=== PATIENT | female | born 1980 | race Caucasian/White ===

== ENCOUNTER 2018-01-03 16:13 | Emergency (ER) | payer SELFPAY ==
[2018-01-03 16:48] LABS: Urine Blood 1+ (NEG); Urine Glucose NEGATIVE (NEG); Urine Protein NEGATIVE (NEG); Urine Specific Gravity 1.025 (1.005-1.030); Urine pH 6.5 (5.0-7.0)
[2018-01-03 17:02] LABS: Urine Bacteria LOADED /HPF (<20); Urine Culture Reflex Order REFLEXED; Urine RBC <5 /HPF (NONE SEEN)
[2018-01-03] MEDS ORDERED: SMZ./TMP. 800/160 MG TABLET ONE (17:19)
--- NOTE | 2018-01-03 17:43 | ER ---
Nurse's Notes [facility] Name: Laura Smith Age: 37 yrs Sex: Female : 1980 Arrival Date: 01/03/2018 Time: 16:20 Bed 23 Private MD: None, None Diagnosis: Urinary tract infection, site not specified;Abdominal and pelvic pain Presentation: 01/03 16:26 Presenting complaint: Patient states: 1.5 weeks of painful intercourse and brown clumpy la1 discharge. Pt states LMP 11/03/2017, unsure if . Transition of care: patient was not received from another setting of care. Onset of symptoms was January 03, 2018. Initial Sepsis Screen: Does the patient meet any 2 criteria? No. Patient's initial sepsis screen is negative. Does the patient have a suspected source of infection? No. Patient's initial sepsis screen is negative. Care prior to arrival: None. 16:26 Method Of Arrival: Ambulatory la1 16:26 Acuity: DARIEL 3 la1 Triage Assessment: 18:07 : Reports discharge, brown. tl3 18:08 : Reports vaginal bleeding that is brown. 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 for tl3 Anxiety [Active]; - PMHx: 16:27 Anxiety; Asthma; Bipolar disorder; CHF; COPD; Pancreatitis; PTSD; Schizophrenia; Skull la1 Fracture Left Parietal Area; TIA; - Immunization history:: Adult Immunizations up to date. - Social history:: Smoking status: Patient uses tobacco products, smokes one pack cigarettes per day. Screenin:45 Abuse screen: Denies threats or abuse. Nutritional screening: No deficits noted. tl3 Tuberculosis screening: No symptoms or risk factors identified. Fall Risk None identified. Assessment: 16:45 General: Appears in no apparent distress. comfortable, well groomed, well developed, tl3 well nourished, Behavior is calm, cooperative, appropriate for age. Pain: Complains of pain in suprapubic area. Neuro: Level of Consciousness is awake, alert, obeys commands, Oriented to person, place, time, situation, Appropriate for age. Cardiovascular: Heart tones S1 S2 present Patient's skin is warm and dry. Respiratory: Airway is patent Trachea midline Respiratory effort is even, unlabored, Respiratory pattern is regular, symmetrical, Breath sounds are clear bilaterally. GI: No signs and/or symptoms were reported involving the gastrointestinal system. : Urine is clear, Reports discharge, vaginal pain with intercourse. EENT: No signs and/or symptoms were reported regarding the EENT system. Derm: No signs and/or symptoms reported regarding the dermatologic system. Musculoskeletal: No signs and/or symptoms reported regarding the musculoskeletal system. 17:30 Reassessment: Patient appears in no apparent distress at this time. No changes from tl3 previously documented assessment. Patient and/or family updated on plan of care and expected duration. Pain level reassessed. Patient is alert, oriented x 3, equal unlabored respirations, skin warm/dry/pink. Vital Signs: 16:27 BP 112 / 84; Pulse 101; Resp 19; Temp 98.6; Pulse Ox 100% on R/A; Weight 63.5 kg; la1 Height 5 ft. 1 in. (154.94 cm); 16:45 BP 125 / 84; Pulse 83; Resp 18; Pulse Ox 100% on R/A; tl3 18:09 BP 115 / 74; Pulse 83; Resp 16; Pulse Ox 99% ; tl3 16:27 Body Mass Index 26.45 (63.50 kg, 154.94 cm) la1 ED Course: 16:20 Patient arrived in ED. mr 16:21 None, None is Private Physician. mr 16:26 Triage completed. la1 16:27 Arm band placed on left wrist. la1 16:30 Alla Cisneros FNP-C is PHCP. kb 16:30 Caleb Wright MD is Attending Physician. kb 16:35 Ce Tse RN is Primary Nurse. tl3 16:45 Patient has correct armband on for positive identification. tl3 16:45 No provider procedures requiring assistance completed. Patient did not have IV access tl3 during this emergency room visit. 17:13 Ultrasound completed. Patient tolerated well. ap2 17:42 US Transvaginal Study (Probe) In Process Unspecified. EDMS Administered Medications: 17:32 Drug: Bactrim (160 mg-800 mg (DS) 1 tablet Route: PO; tl3 18:03 Follow up: Response: No adverse reaction tl3 18:03 Drug: Doxycycline 100 mg Route: PO; tl3 18:04 Follow up: Response: Medication administered at discharge. tl3 Outcome: 17:42 Discharge ordered by . cuong 18:06 Discharged to home ambulatory. tl3 18:06 Condition: good 18:06 Discharge instructions given to patient, Instructed on discharge instructions, follow up and referral plans. medication usage, Demonstrated understanding of instructions, follow-up care, medications, Prescriptions given X 2. 18:09 Patient left the ED. tl3 Addendum: 01/06/2018 07:16 Addendum: Culture Results: Positive urine culture. No further action required. Bacteria i w sensitive to prescribed antibiotic. Signatures: Dispatcher [employer] EDMS Alla Cisneros, RUBBER CURER-C RUBBER CURER-CkMarian Barrientos Irene, RN TRACY iw Lamine Marley RN RN la1 Vianey Yeboah Tammy, TRACY RN tl3
--- NOTE | 2018-01-03 17:43 | EDPHYS ---
Physician Documentation [facility] Name: Laura Betancourt Smith Age: 37 yrs Sex: Female : 1980 Arrival Date: 01/03/2018 Time: 16:20 Bed 23 Private MD: None, None ED Physician Caleb Wright HPI: 01/03 16:54 This 37 yrs old Female presents to ER via Ambulatory with complaints of kb Vaginal Bleeding, Unknown wks . 17:01 The patient presents with pelvic pain, that is located in/on the suprapubic area, with kb associated dyspareunia, vaginal discharge, that is malodorous brown discharge. Onset: The symptoms/episode began/occurred 2 week(s) ago. Modifying factors: The symptoms are alleviated by nothing, the symptoms are aggravated by sexual intercourse. Associated signs and symptoms: Pertinent positives: dyspareunia, vaginal discharge, Pertinent negatives: constipation, cramping, diarrhea, dysuria, fever, hematuria, nausea, urinary frequency, vaginal bleeding, vomiting. Severity of symptoms: At their worst the symptoms were moderate, in the emergency department the symptoms are unchanged. The patient is sexually active. The patient has not experienced similar symptoms in the past. The patient has not recently seen a physician. 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 for tl3 Anxiety [Active]; - PMHx: 16:27 Anxiety; Asthma; Bipolar disorder; CHF; COPD; Pancreatitis; PTSD; Schizophrenia; Skull la1 Fracture Left Parietal Area; TIA; - Immunization history:: Adult Immunizations up to date. - Social history:: Smoking status: Patient uses tobacco products, smokes one pack cigarettes per day. ROS: 16:55 Constitutional: Negative for fever, chills, and weight loss, Cardiovascular: Negative kb for chest pain, palpitations, and edema, Respiratory: Negative for shortness of breath, cough, wheezing, and pleuritic chest pain, Abdomen/GI: Negative for abdominal pain, nausea, vomiting, diarrhea, and constipation, Back: Negative for injury and pain, MS/Extremity: Negative for injury and deformity, Skin: Negative for injury, rash, and discoloration, Neuro: Negative for headache, weakness, numbness, tingling, and seizure. 16:55 : Positive for pelvic pain, vaginal discharge, missed period. Exam: 16:56 Constitutional: This is a well developed, well nourished patient who is awake, alert, kb and in no acute distress. Head/Face: Normocephalic, atraumatic. Chest/axilla: Normal chest wall appearance and motion. Nontender with no deformity. No lesions are appreciated. Cardiovascular: Regular rate and rhythm with a normal S1 and S2. No gallops, murmurs, or rubs. Normal PMI, no JVD. No pulse deficits. Respiratory: Lungs have equal breath sounds bilaterally, clear to auscultation and percussion. No rales, rhonchi or wheezes noted. No increased work of breathing, no retractions or nasal flaring. Back: No spinal tenderness. No costovertebral tenderness. Full range of motion. Skin: Warm, dry with normal turgor. Normal color with no rashes, no lesions, and no evidence of cellulitis. MS/ Extremity: Pulses equal, no cyanosis. Neurovascular intact. Full, normal range of motion. Neuro: Awake and alert, GCS 15, oriented to person, place, time, and situation. Cranial nerves II-XII grossly intact. Motor strength 5/5 in all extremities. Sensory grossly intact. Cerebellar exam normal. Normal gait. 16:56 Abdomen/GI: Inspection: abdomen appears normal, Bowel sounds: normal, in all quadrants, Palpation: soft, in all quadrants, moderate abdominal tenderness, in the suprapubic area. Vital Signs: 16:27 BP 112 / 84; Pulse 101; Resp 19; Temp 98.6; Pulse Ox 100% on R/A; Weight 63.5 kg; la1 Height 5 ft. 1 in. (154.94 cm); 16:45 BP 125 / 84; Pulse 83; Resp 18; Pulse Ox 100% on R/A; tl3 18:09 BP 115 / 74; Pulse 83; Resp 16; Pulse Ox 99% ; tl3 16:27 Body Mass Index 26.45 (63.50 kg, 154.94 cm) la1 MDM: 16:30 Patient medically screened. kb 16:56 Data reviewed: vital signs, nurses notes. Data interpreted: Pulse oximetry: on room air kb is 100 %. Interpretation: normal. 17:06 ED course: Pt took a week course of Macrobid 2 weeks ago for UTI. Will prescribe kb Bactrim DS and urine culture to test for sensitivity. 17:42 Counseling: I had a detailed discussion with the patient and/or guardian regarding: the kb historical points, exam findings, and any diagnostic results supporting the discharge/admit diagnosis, lab results, radiology results, the need for outpatient follow up, an OB/Gyne specialist, to return to the emergency department if symptoms worsen or persist or if there are any questions or concerns that arise at home. 01/03 16:41 Order name: Urine Microscopic Only; Complete Time: 17:03 kb 01/03 16:44 Order name: Urine Dipstick--Ancillary (enter results); Complete Time: 16:51 ag 01/03 16:41 Order name: US Transvaginal Study (Probe); Complete Time: 05:55 kb 01/03 16:44 Order name: Urine --Ancillary (enter results); Complete Time: 16:51 ag 01/03 17:03 Order name: Urine Culture EDMS 01/03 16:31 Order name: Urine Dipstick-Ancillary (obtain specimen); Complete Time: 17:17 kb 01/03 16:31 Order name: Urine Test (obtain specimen); Complete Time: 17:17 kb Administered Medications: 17:32 Drug: Bactrim (160 mg-800 mg (DS) 1 tablet Route: PO; tl3 18:03 Follow up: Response: No adverse reaction tl3 18:03 Drug: Doxycycline 100 mg Route: PO; tl3 18:04 Follow up: Response: Medication administered at discharge. tl3 Disposition: 01/03/18 17:42 Discharged to Home. Impression: Urinary tract infection, site not specified, Abdominal and pelvic pain. - Condition is Stable. - Discharge Instructions: Urinary Tract Infection, [id number]. - Prescriptions for Doxycycline Hyclate 100 mg Oral Tablet - take 1 tablet by ORAL route every 12 hours; 20 tablet. Bactrim DS 800- 160 mg Oral Tablet - take 1 tablet by ORAL route every 12 hours for 7 days; 14 tablet. - Medication Reconciliation Form, Thank You Letter, Antibiotic Education, Prescription Opioid Use form. - Follow up: Emergency Department; When: As needed; Reason: Worsening of condition. Follow up: Private Physician; When: 2 - 3 days; Reason: Recheck today's complaints, Continuance of care, Re-evaluation by your physician. Addendum: 01/12/2018 05:55 Co-signature as Attending Physician, Caleb Wright MD I agree with the assessment and w a plan of care. Signatures: Dispatcher [employer] EDMS Alla Cisneros, [place]-C INSURANCE PROCESSING CLERK-Lamine Fontenot RN RN la1 Caleb Wright MD MD wa Lowrey, Tammy, RN RN tl3 Corrections: (The following items were deleted from the chart) 01/03 18:09 17:42 01/03/2018 17:42 Discharged to Home. Impression: Urinary tract infection, site tl3 not specified; Abdominal and pelvic pain. Condition is Stable. Forms are Medication Reconciliation Form, Thank You Letter, Antibiotic Education, Prescription Opioid Use. Follow up: Emergency Department; When: As needed; Reason: Worsening of condition. Follow up: Private Physician; When: 2 - 3 days; Reason: Recheck today's complaints, Continuance of care, Re-evaluation by your physician. kb
--- NOTE | 2018-01-03 17:59 | RAD REPORT ---
EXAM DESCRIPTION: US - Transvaginal Study Probe - 01/03/2018 5:42 pm CLINICAL HISTORY: Pelvic pain. COMPARISON: 11/01/2015 FINDINGS: The uterus is normal in size, shape and echotexture. The uterus measures 8.2 x 4.8 x 3.7 c m. The endometrial stripe measures 2 mm, normal. Several small subendometrial hyperechoic foci are prese nt probably representing subendometrial glands. The right ovary could not be well seen due to bowel gas. The left ovary is normal in size, shape and echotexture measuring 3.0 x 1.7 x 1.2 cm. Normal blood flow seen the left ovary. No pelvic ascites. IMPRESSION: No acute abnormalities detected.
[2018-01-03] MEDS ORDERED: DOXYCYCLINE 100 MG CAP PO ONE (18:01)
[2018-01-03 18:13] VITALS: TEMP 98.6
[2018-01-03 18:15] VITALS: BP 115/74; O2SAT 99
== END 2018-01-03 18:09 | disposition home or self-care (01) ==
LOC: ER 16:13
DX: N39.0 Urinary tract infection, site not specified (principal); F31.9 Bipolar disorder, unspecified; F20.9 Schizophrenia, unspecified; Z88.0 Allergy status to penicillin; Z88.6 Allergy status to analgesic agent; Z91.048 Other nonmedicinal substance allergy status
CPT/HCPCS: 76830; 81003; 81015; 81025; 87077; 87086; 87088; 87186; 99283

== ENCOUNTER 2018-06-25 15:54 | Emergency (ER) | payer SELFPAY ==
[2018-06-25] MEDS ORDERED: FENTANYL CITR 100 MCG/2 ML ONE (16:34)
[2018-06-25] MEDS ORDERED: MECLIZINE HCL 12.5 MG TAB ONE (16:35)
[2018-06-25] MEDS ORDERED: ONDANSETRON 4 MG/2 ML VIAL ONE ×2 (16:35→18:27)
--- NOTE | 2018-06-25 17:03 | RAD REPORT ---
EXAM DESCRIPTION: CT - Head Brain Wo Cont - 06/25/2018 4:41 pm CLINICAL HISTORY: Headache. Head injury status post fall COMPARISON: August 2016 TECHNIQUE: Computed axial tomography of the head was obtained. IV contrast was not requested. All CT scans are performed using dose optimization technique as appropriate and may include automated exposure control or mA/KV adjustment according to patient size. FINDINGS: Left craniotomy has been performed. An intracranial bleed is not seen . The ventricles are normal in caliber. No extra-axial fluid collection is noted. Fluid within the sinuses/ mastoids is not seen. IMPRESSION: No acute intracranial abnormality is seen. If patient's symptoms persist MRI of the bra in would be recommended.
[2018-06-25 17:46] LABS: Absolute Lymphocytes (CBC) 2.8 K/uL (0.7-4.9); Absolute Monocytes 0.7 K/uL (0.1-1.3); Absolute Neutrophil 3.1 K/uL (1.8-8.0); Basophils % 1.1 % (0-1.3); Eosinophils % 2.7 % (0-4.4); Lymphocytes % 40.2 % (15.3-44.8); MCH 30.5 pg (27.0-35.0); MCV 91.5 fL (80-100); MPV 7.9 fL (7.6-11.3); Monocytes % 10.7 % (3.3-12.3); RBC Red Blood Cell Count 4.48 M/uL (3.86-4.86)
[2018-06-25 18:02] LABS: ALT/SGPT 70 U/L (12-78); AST/SGOT 22 U/L (15-37); Albumin 3.7 g/dL (3.4-5.0); Alkaline Phosphatase 198 U/L (45-117); BUN Blood Urea Nitrogen 9 mg/dL (7-18); Bicarbonate 22 mmol/L (21-32); Bilirubin Direct < 0.1 mg/dL (0-0.2); Bilirubin Total 0.2 mg/dL (0.2-1.0); Glucose Level 88 mg/dL (74-106); Lipase 198 U/L (73-393); Potassium 3.2 mmol/L (3.5-5.1); Protein, Total 7.4 g/dL (6.4-8.2); Sodium Level 141 mmol/L (136-145)
[2018-06-25] MEDS ORDERED: NA CHLORIDE 0.9% 1,000 ML ONE (18:27)
[2018-06-25 19:16] LABS: Urine Blood NEGATIVE (NEG); Urine Glucose NEGATIVE (NEG); Urine Protein NEGATIVE (NEG); Urine Specific Gravity 1.015 (1.005-1.030)
--- NOTE | 2018-06-25 19:23 | RAD REPORT ---
EXAM DESCRIPTION: MRI - Brain Wo Cont - 06/25/2018 6:51 pm CLINICAL HISTORY: Head injury status post fall. Headache COMPARISON: June 25, [address] TECHNIQUE: Axial, sagittal, and coronal magnetic images of the brain were obtained. Contrast was not requested FINDINGS: Postsurgical changes of a left craniotomy are seen. No significant abnormal signal is present within the brain. Diffusion-weighted/ADC mapping does not reveal evidence of acute infarction. The ventricles are normal caliber. An extra-axial fluid collection is not present The sinuses and mastoids are clear. IMPRESSION: No acute abnormality displayed
[2018-06-25 19:30] LABS: Urine Bacteria LOADED /HPF (<20); Urine Culture Reflex Order REFLEXED; Urine RBC NONE SEEN /HPF (NONE SEEN)
--- NOTE | 2018-06-25 20:00 | EDPHYS ---
Physician Documentation [facility] Name: Laura Smith Age: 38 yrs Sex: Female : 1980 Arrival Date: 06/25/2018 Time: 15:57 Bed 28 Private MD: ED Physician Chilo Zaidi HPI: 06/25 16:52 This 38 yrs old Female presents to ER via EMS with complaints of n/v/d, Right jr8 sided weakness. 16:52 Patient stated that she has had n/v/d for two days feeling weak. Today has had headache jr8 and cannot move the right side of her body as well as she normally can. History of TBI from fall. Stated that she has some baseline deficit on right side but never this bad. Severity of symptoms: At their worst the symptoms were moderate in the emergency department the symptoms are unchanged. The patient has not experienced similar symptoms in the past. The patient has not recently seen a physician. Historical: - Allergies: 16:10 iodine (IV) (Anaphylaxis); mg2 16:10 PENICILLINS (Hives); mg2 16:10 Toradol (Hives); mg2 - Home Meds: 16:10 Depakote Oral [Active]; Xanax 2 mg Oral tab 1 tab Two times a day as needed. for mg2 Anxiety [Active]; - PMHx: 16:10 Anxiety; Asthma; Bipolar disorder; CHF; COPD; Pancreatitis; PTSD; Schizophrenia; Skull mg2 Fracture Left Parietal Area; TIA; - PSHx: 16:10 head surgery; mg2 - Immunization history:: Flu vaccine status is unknown. - Social history:: Smoking status: Patient uses tobacco products, smokes one pack cigarettes per day. Patient/guardian denies using alcohol, street drugs, IV drugs. - Ebola Screening: : No symptoms or risks identified at this time. ROS: 16:52 Eyes: Negative for injury, pain, redness, and discharge, ENT: Negative for injury, jr8 pain, and discharge, Neck: Negative for injury, pain, and swelling, Cardiovascular: Negative for chest pain, palpitations, and edema, Respiratory: Negative for shortness of breath, cough, wheezing, and pleuritic chest pain, Back: Negative for injury and pain, MS/Extremity: Negative for injury and deformity, Skin: Negative for injury, rash, and discoloration. 16:52 Abdomen/GI: Positive for abdominal pain, nausea, vomiting, and diarrhea, Negative for abdominal distension, anorexia, dysphagia, hematemesis, black/tarry stool, rectal pain, rectal bleeding, bowel incontinence, flatulence. 16:52 Neuro: Positive for dizziness, headache, weakness, Negative for altered mental status, seizure activity, speech changes, syncope. Exam: 17:51 Eyes: Pupils equal round and reactive to light, extra-ocular motions intact. Lids and jr8 lashes normal. Conjunctiva and sclera are non-icteric and not injected. Cornea within normal limits. Periorbital areas with no swelling, redness, or edema. ENT: Nares patent. No nasal discharge, no septal abnormalities noted. Tympanic membranes are normal and external auditory canals are clear. Oropharynx with no redness, swelling, or masses, exudates, or evidence of obstruction, uvula midline. Mucous membranes moist. Neck: Trachea midline, no thyromegaly or masses palpated, and no cervical lymphadenopathy. Supple, full range of motion without nuchal rigidity, or vertebral point tenderness. No Meningismus. Cardiovascular: Regular rate and rhythm with a normal S1 and S2. No gallops, murmurs, or rubs. Normal PMI, no JVD. No pulse deficits. Respiratory: Lungs have equal breath sounds bilaterally, clear to auscultation and percussion. No rales, rhonchi or wheezes noted. No increased work of breathing, no retractions or nasal flaring. Abdomen/GI: Soft, non-tender, with normal bowel sounds. No distension or tympany. No guarding or rebound. No evidence of tenderness throughout. Back: No spinal tenderness. No costovertebral tenderness. Full range of motion. Skin: Warm, dry with normal turgor. Normal color with no rashes, no lesions, and no evidence of cellulitis. MS/ Extremity: Pulses equal, no cyanosis. Neurovascular intact. Full, normal range of motion. 17:51 Head/face: left sided craniotomy scars present . 17:51 Neuro: Orientation: to person, place, time \T\ situation. Mentation: is normal, Memory: is normal, Cranial nerves: CN I not tested, CN II- XII are normal as tested, visual agustin are intact. extraocular movements are intact, Facial palsy and sensory deficits are absent. Speech is slurred, baseline for patient . Tongue strength is normal, Cerebellar function: dysmetria is noted on the right, Motor: moves all fours, strength is 5/5 in the left arm and left leg, Strength is 3/5 in the right arm and right leg, Sensation: no obvious gross deficits, Gait: not tested. seizure activity, is not displayed by the patient, Abnormal movements: there are no abnormal movements. Vital Signs: 16:11 BP 110 / 69; Pulse 80; Resp 18; Temp 98.3; Pulse Ox 100% on R/A; Weight 54.43 kg; mg2 Height 5 ft. 1 in. (154.94 cm); Pain 7/10; 17:19 BP 119 / 74; Pulse 60; Resp 18; Pulse Ox 97% on R/A; mg2 20:14 BP 120 / 75; Pulse 77; Resp 18; Pulse Ox 100% on R/A; Pain 0/10; mg2 16:11 Body Mass Index 22.67 (54.43 kg, 154.94 cm) mg2 NIH Stroke Scale Scores: 17:51 NIHSS Score: 4 jr8 MDM: 16:00 Patient medically screened. jr8 19:58 Data reviewed: vital signs, nurses notes, lab test result(s), radiologic studies, CT jr8 scan, MRI. Data interpreted: Pulse oximetry: on room air is 97 %. Interpretation: normal. Counseling: I had a detailed discussion with the patient and/or guardian regarding: the historical points, exam findings, and any diagnostic results supporting the discharge/admit diagnosis, lab results, radiology results, the need for outpatient follow up, a family practitioner, a neurologist, to return to the emergency department if symptoms worsen or persist or if there are any questions or concerns that arise at home. Response to treatment: the patient's symptoms have markedly improved after treatment. 06/25 16:21 Order name: Basic Metabolic Panel; Complete Time: 18:06 8 06/25 16:21 Order name: CBC with Diff; Complete Time: 17:54 jr8 06/25 16:21 Order name: Creatinine for Radiology; Complete Time: 18:06 8 06/25 16:21 Order name: Hepatic Function; Complete Time: 18:06 jr8 06/25 16:21 Order name: Lipase; Complete Time: 18:06 8 06/25 16:21 Order name: Urine Microscopic Only; Complete Time: 20:00 jr8 06/25 16:21 Order name: CT Head Brain wo Cont; Complete Time: 17:03 jr8 06/25 16:23 Order name: Depakote; Complete Time: 18:06 jr8 06/25 17:32 Order name: MRI - Brain Wo Cont; Complete Time: 19:25 jr8 06/25 19:09 Order name: Urine Dipstick--Ancillary (enter results); Complete Time: 19:25 ms 06/25 19:09 Order name: Urine --Ancillary (enter results); Complete Time: 19:25 ms 06/25 19:30 Order name: Urine Culture EDMS 06/25 16:21 Order name: IV Saline Lock; Complete Time: 17:40 8 06/25 16:21 Order name: Labs collected and sent; Complete Time: 17:40 8 06/25 16:21 Order name: Urine Test (obtain specimen); Complete Time: 19:18 jr8 06/25 16:21 Order name: Urine Dipstick-Ancillary (obtain specimen); Complete Time: 19:19 jr8 Administered Medications: 17:15 Drug: Meclizine 25 mg Route: PO; mg2 18:33 Follow up: Response: No adverse reaction; Marked relief of symptoms mg2 17:39 Drug: Zofran 4 mg Route: IVP; Site: left jugular; mg2 18:28 Follow up: Response: No adverse reaction; Pain is unchanged, physician notified mg2 17:39 Drug: fentaNYL (PF) 25 mcg Route: IVP; Site: left jugular; mg2 18:33 Follow up: Response: No adverse reaction mg2 18:27 Drug: NS 0.9% 1000 ml Route: IV; Rate: 1000 ml; Site: left jugular; mg2 20:13 Follow up: Response: No adverse reaction; Marked relief of symptoms; IV Status: mg2 Completed infusion 18:27 Drug: Zofran 4 mg Route: IVP; Site: left jugular; mg2 20:13 Follow up: Response: No adverse reaction; Marked relief of symptoms mg2 18:28 Drug: fentaNYL (PF) 50 mcg Route: IVP; Site: left jugular; mg2 20:13 Follow up: Response: No adverse reaction; Marked relief of symptoms mg2 20:12 Drug: Imodium A-D 4 mg Route: PO; mg2 20:13 Follow up: Response: No adverse reaction; Medication administered at discharge. mg2 20:12 Drug: [place] 10 mg-325 mg 1 tabs Route: PO; mg2 20:12 Follow up: Response: No adverse reaction; Medication administered at discharge. mg2 Disposition: 06/25/18 19:59 Discharged to Home. Impression: Diffuse traumatic brain injury, Gastroenteritis, Urinary tract infection, site not specified. - Condition is Stable. - Discharge Instructions: Traumatic Brain Injury, Urinary Tract Infection, Adult, Viral Gastroenteritis, Adult. - Prescriptions for Meclizine 25 mg Oral Tablet - take 1 tablet by ORAL route every 8 hours As needed; 30 tablet. Tylenol- Codeine #3 300-30 mg Oral Tablet - take 2 tablet by ORAL route every 6 hours As needed; 30 tablet. Macrobid 100 mg Oral Capsule - take 1 capsule by ORAL route every 12 hours for 7 days; 14 capsule. - Medication Reconciliation Form, Thank You Letter, Antibiotic Education, Prescription Opioid Use form. - Follow up: Private Physician; When: 2 - 3 days; Reason: Recheck today's complaints, Continuance of care, Re-evaluation by your physician. - Problem is new. - Symptoms have improved. NIH Stroke Scale - NIH Stroke Score Date: 06/25/2018 Time: 17:51 Total Score = 4 1a. Level of Consciousness (LOC) - 0(Alert) 1b. Level of Consciousness (LOC) (Year \T\ Age) - 0(Both) 1c. LOC Commands (Open \T\ Closes Eyes/High School Assistant Principal) - 0(Both) 2. Best Gaze (Lateral Gaze Paresis) - 0(Normal) 3. Visual Field Loss - 0(No visual loss) 4. Facial Palsy - 0(Normal) 5a. Left Arm: Motor (10-second hold) - 0(No drift) 5b. Right Arm: Motor (10-second hold) - 1(Drift) 6a. Left Leg: Motor (5-second hold - always test supine) - 0(No drift) 6b. Right Leg: Motor (5-second hold - always test supine) - 1(Drift) 7. Limb Ataxia (finger/nose \T\ heel/miller - test with eyes open) - 1(Present in one limb) 8. Sensory Loss (pinprick arms/legs/face) - 0(Normal) 9. Best Language: Aphasia (description/naming/reading) - 0(No aphasia) 10. Dysarthria (speech clarity - read or repeat words) - 1(Mild to Moderate) 11. Extinction and Inattention (visual/tactile/auditory/spatial/personal) - 0(No abnormality) Initials: jr8 Addendum: 06/28/2018 07:46 Co-signature as Attending Physician, Chilo Zaidi MD. rn Signatures: Dispatcher [employer] EDMN Chilo Zaidi MD MD rn Roszak, Josh, PA PA jr8 Srinivas Jamison RN RN mg2 Corrections: (The following items were deleted from the chart) 06/25 20:15 19:59 06/25/2018 19:59 Discharged to Home. Impression: Diffuse traumatic brain mg2 injury; Gastroenteritis; Urinary tract infection, site not specified. Condition is Stable. Forms are Medication Reconciliation Form, Thank You Letter, Antibiotic Education, Prescription Opioid Use. Follow up: Private Physician; When: 2 - 3 days; Reason: Recheck today's complaints, Continuance of care, Re-evaluation by your physician. Problem is new. Symptoms have improved. jr8
--- NOTE | 2018-06-25 20:00 | ER ---
Nurse's Notes [facility] Name: Laura Smith Age: 38 yrs Sex: Female : 1980 Arrival Date: 06/25/2018 Time: 15:57 Bed 28 Private MD: Diagnosis: Diffuse traumatic brain injury;Gastroenteritis;Urinary tract infection, site not specified Presentation: 06/25 16:04 Presenting complaint: EMS states: she fell this morning while walking towards the mg2 bathroom, sustained pain and weakness to the right side, vomiting, headache and nausea. she also reports having diarrhea since yesterday. she had a traumatic brain injury last May 03, 2018 and was surgically operated. she was in [facility] yesterday. Transition of care: patient was not received from another setting of care. Onset of symptoms was June 25, 2018. Risk Assessment: Do you want to hurt yourself or someone else? Patient reports no desire to harm self or others. Initial Sepsis Screen: Does the patient meet any 2 criteria? No. Patient's initial sepsis screen is negative. Does the patient have a suspected source of infection? No. Patient's initial sepsis screen is negative. Care prior to arrival: None. 16:04 Method Of Arrival: EMS mg2 16:04 Acuity: DARIEL 3 mg2 Historical: - Allergies: 16:10 iodine (IV) (Anaphylaxis); mg2 16:10 PENICILLINS (Hives); mg2 16:10 Toradol (Hives); mg2 - Home Meds: 16:10 Depakote Oral [Active]; Xanax 2 mg Oral tab 1 tab Two times a day as needed. for mg2 Anxiety [Active]; - PMHx: 16:10 Anxiety; Asthma; Bipolar disorder; CHF; COPD; Pancreatitis; PTSD; Schizophrenia; Skull mg2 Fracture Left Parietal Area; TIA; - PSHx: 16:10 head surgery; mg2 - Immunization history:: Flu vaccine status is unknown. - Social history:: Smoking status: Patient uses tobacco products, smokes one pack cigarettes per day. Patient/guardian denies using alcohol, street drugs, IV drugs. - Ebola Screening: : No symptoms or risks identified at this time. Screenin:14 Abuse screen: Denies threats or abuse. Denies injuries from another. Nutritional mg2 screening: No deficits noted. Tuberculosis screening: No symptoms or risk factors identified. Fall Risk Fall in past 12 months (25 points). Gait- Weak (10 pts.). Assessment: 16:19 General: Appears in no apparent distress. comfortable, Behavior is anxious. Pain: mg2 Complains of pain in head Pain does not radiate. Pain currently is 7 out of 10 on a pain scale. Quality of pain is described as aching, Pain began gradually, 6 hours ago. Neuro: Level of Consciousness is awake, alert, obeys commands, Oriented to person, place, situation, Reports headache. Cardiovascular: Capillary refill < 3 seconds Patient's skin is warm and dry. Respiratory: Airway is patent Respiratory effort is even, unlabored, Respiratory pattern is regular, symmetrical. GI: Reports nausea. : No signs and/or symptoms were reported regarding the genitourinary system. EENT: No signs and/or symptoms were reported regarding the EENT system. Derm: Skin is intact, is healthy with good turgor, Skin is pink, warm \T\ dry. normal. Musculoskeletal: Circulation, motion, and sensation intact. Capillary refill < 3 seconds. 16:38 Reassessment: patient sent to ct scan,. mg2 Vital Signs: 16:11 BP 110 / 69; Pulse 80; Resp 18; Temp 98.3; Pulse Ox 100% on R/A; Weight 54.43 kg; mg2 Height 5 ft. 1 in. (154.94 cm); Pain 7/10; 17:19 BP 119 / 74; Pulse 60; Resp 18; Pulse Ox 97% on R/A; mg2 20:14 BP 120 / 75; Pulse 77; Resp 18; Pulse Ox 100% on R/A; Pain 0/10; mg2 16:11 Body Mass Index 22.67 (54.43 kg, 154.94 cm) mg2 NIH Stroke Scale Scores: 17:51 NIHSS Score: 4 jr8 ED Course: 15:57 Patient arrived in ED. hb 16:00 Emigdio Hay PA is PHCP. jr8 16:00 Chilo Zaidi MD is Attending Physician. jr8 16:04 Srinivas Jamison, TRACY is Primary Nurse. mg2 16:07 Triage completed. mg2 16:11 Arm band placed on. mg2 16:22 Patient has correct armband on for positive identification. Pulse ox on. NIBP on. Door mg2 closed. Warm blanket given. 16:[address] sj 16:38 No provider procedures requiring assistance completed. mg2 16:41 CT Head Brain wo Cont In Process Unspecified. EDMS 17:40 Inserted saline lock: 22 gauge in left EJ, using aseptic technique. Blood collected. mg2 18:30 Patient moved to MRI via wheelchair. ka 18:49 MRI - Brain Wo Cont In Process Unspecified. EDMS 20:14 IV discontinued, intact, bleeding controlled, No redness/swelling at site. Pressure mg2 dressing applied. Administered Medications: 17:15 Drug: Meclizine 25 mg Route: PO; mg2 18:33 Follow up: Response: No adverse reaction; Marked relief of symptoms mg2 17:39 Drug: Zofran 4 mg Route: IVP; Site: left jugular; mg2 18:28 Follow up: Response: No adverse reaction; Pain is unchanged, physician notified mg2 17:39 Drug: fentaNYL (PF) 25 mcg Route: IVP; Site: left jugular; mg2 18:33 Follow up: Response: No adverse reaction mg2 18:27 Drug: NS 0.9% 1000 ml Route: IV; Rate: 1000 ml; Site: left jugular; mg2 20:13 Follow up: Response: No adverse reaction; Marked relief of symptoms; IV Status: mg2 Completed infusion 18:27 Drug: Zofran 4 mg Route: IVP; Site: left jugular; mg2 20:13 Follow up: Response: No adverse reaction; Marked relief of symptoms mg2 18:28 Drug: fentaNYL (PF) 50 mcg Route: IVP; Site: left jugular; mg2 20:13 Follow up: Response: No adverse reaction; Marked relief of symptoms mg2 20:12 Drug: Imodium A-D 4 mg Route: PO; mg2 20:13 Follow up: Response: No adverse reaction; Medication administered at discharge. mg2 20:12 Drug: [place] 10 mg-325 mg 1 tabs Route: PO; mg2 20:12 Follow up: Response: No adverse reaction; Medication administered at discharge. mg2 Outcome: 19:59 Discharge ordered by . jrDeneen 20:14 Discharged to home via wheelchair, with family. mg2 20:14 Condition: stable 20:14 Discharge instructions given to patient, family, Instructed on discharge instructions, follow up and referral plans. medication usage, Demonstrated understanding of instructions, follow-up care, medications, Prescriptions given X 3. 20:15 Patient left the ED. mg2 NIH Stroke Scale - NIH Stroke Score Date: 06/25/2018 Time: 17:51 Total Score = 4 1a. Level of Consciousness (LOC) - 0(Alert) 1b. Level of Consciousness (LOC) (Year \T\ Age) - 0(Both) 1c. LOC Commands (Open \T\ Closes Eyes/Telesales Supervisor) - 0(Both) 2. Best Gaze (Lateral Gaze Paresis) - 0(Normal) 3. Visual Field Loss - 0(No visual loss) 4. Facial Palsy - 0(Normal) 5a. Left Arm: Motor (10-second hold) - 0(No drift) 5b. Right Arm: Motor (10-second hold) - 1(Drift) 6a. Left Leg: Motor (5-second hold - always test supine) - 0(No drift) 6b. Right Leg: Motor (5-second hold - always test supine) - 1(Drift) 7. Limb Ataxia (finger/nose \T\ heel/miller - test with eyes open) - 1(Present in one limb) 8. Sensory Loss (pinprick arms/legs/face) - 0(Normal) 9. Best Language: Aphasia (description/naming/reading) - 0(No aphasia) 10. Dysarthria (speech clarity - read or repeat words) - 1(Mild to Moderate) 11. Extinction and Inattention (visual/tactile/auditory/spatial/personal) - 0(No abnormality) Initials: eladio Addendum: 06/28/2018 07:54 Addendum: Culture Results: Positive urine culture. No further action required. iw Bacteria sensitive to prescribed antibiotic. Signatures: Dispatcher [employer] Heide Marie Irene, RN RN iw Roszak, Josh, PA PA jr8 Leslie Dee Heather, RN RN Srinivas Jamison RN RN mg2 Corrections: (The following items were deleted from the chart) 06/25 17:40 17:19 Pulse 60bpm; Resp 18bpm; Pulse Ox 97% RA; mg2 mg2
[2018-06-25] MEDS ORDERED: HYDROCODONE/APAP 10/325 TAB ONE (20:09)
[2018-06-25] MEDS ORDERED: LOPERAMIDE HCL 2 MG CAPSULE ONE (20:09)
[2018-06-25 20:43] VITALS: TEMP 98.3
[2018-06-25 20:46] VITALS: BP 120/75; O2SAT 100
== END 2018-06-25 20:15 | disposition home or self-care (01) ==
LOC: ER 15:54
DX: N39.0 Urinary tract infection, site not specified (principal); K52.9 Noninfective gastroenteritis and colitis, unspecified; F17.210 Nicotine dependence, cigarettes, uncomplicated; F41.9 Anxiety disorder, unspecified; F31.9 Bipolar disorder, unspecified; Z88.0 Allergy status to penicillin; Z88.5 Allergy status to narcotic agent; Z87.820 Personal history of traumatic brain injury; Z91.048 Other nonmedicinal substance allergy status
CPT/HCPCS: 36415; 70450; 70551; 80048; 80076; 80164; 81003; 81015; 81025; 83690; 85025; 87077; 87086; 87088; 87186; 96361; 96374; 96375; 99284; J2405; J3010; J7030

== ENCOUNTER 2018-07-23 19:24 | Emergency (ER) | payer SELFPAY ==
[2012-05-03 18:01] VITALS: BP 118/71
--- NOTE | 2018-07-23 21:36 | ER ---
Nurse's Notes [facility] Name: Laura Smith Age: 38 yrs Sex: Female : 1980 Arrival Date: 07/23/2018 Time: 19:29 Bed 27 Private MD: Diagnosis: Chronic pain syndrome;Temporomandibular joint disorders Presentation: 07/23 19:55 Presenting complaint: Patient states: "Im having a lot of pain in my head on the left aj1 side, and I have a headache. I went to see my brain doctor and they told me its part of my bone, but it hurts. And in the back of my head it hurts, where its sunken in" Patient's boyfriend states that she has a soft spot in the back of her head after having surgery for a TBI. Patient states that she's tired of the pain. Reports that she has head this headache for the past 3 weeks. Patient also states that she has been on her period for the past 3 weeks. Transition of care: patient was not received from another setting of care. Onset of symptoms was July 23, 2018. Risk Assessment: Do you want to hurt yourself or someone else? Patient reports no desire to harm self or others. Initial Sepsis Screen: Does the patient meet any 2 criteria? No. Patient's initial sepsis screen is negative. Does the patient have a suspected source of infection? No. Patient's initial sepsis screen is negative. Care prior to arrival: None. 19:55 Method Of Arrival: Ambulatory aj1 19:55 Acuity: DARIEL 3 aj1 Triage Assessment: 20:02 General: Appears in no apparent distress. comfortable, Behavior is calm, cooperative, aj1 appropriate for age. Pain: Pain currently is 8 out of 10 on a pain scale. Neuro: Level of Consciousness is awake, alert, obeys commands, Gait is steady, Reports dizziness, headache. Cardiovascular: Patient's skin is warm and dry. Respiratory: Airway is patent Respiratory effort is even, unlabored, Respiratory pattern is regular, symmetrical. 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 - Social history:: Smoking status: Patient uses tobacco products, smokes one pack cigarettes per day. - Ebola Screening: : Patient denies travel to an Ebola-affected area in the 21 days before illness onset. Screenin:30 Abuse screen: Denies threats or abuse. Denies injuries from another. Nutritional kr2 screening: No deficits noted. Tuberculosis screening: No symptoms or risk factors identified. Fall Risk None identified. Assessment: 20:30 General: Appears in no apparent distress. comfortable, well groomed, well developed, kr2 well nourished, Behavior is calm, cooperative. Pain: Complains of pain in left side of head Pain does not radiate. Pain currently is 8 out of 10 on a pain scale. Quality of pain is described as aching, Is continuous, Alleviated by nothing. Neuro: Level of Consciousness is awake, alert, obeys commands, Oriented to person, place, time, situation, Speech is slurred, Family member states that speech is always slurred. Cardiovascular: Capillary refill < 3 seconds in bilateral fingers Patient's skin is warm and dry. Respiratory: Airway is patent Respiratory effort is even, unlabored, Respiratory pattern is regular, symmetrical. GI: Abdomen is flat, non-distended. EENT: Oral mucosa is moist. Derm: Skin is intact, is healthy with good turgor, Skin is pink, warm \\T\\ dry. Musculoskeletal: Circulation, motion, and sensation intact. 21:30 Reassessment: Patient appears in no apparent distress at this time. Patient and/or kr2 family updated on plan of care and expected duration. Pain level reassessed. Patient is alert, oriented x 3, equal unlabored respirations, skin warm/dry/pink. Vital Signs: 20:02 BP 107 / 85; Pulse 80; Resp 18; Temp 98.5; Pulse Ox 100% on R/A; Weight 52.16 kg (R); aj1 Height 5 ft. 1 in. (154.94 cm) (R); Pain 8/10; 21:25 BP 110 / 80; Pulse 80; Resp 16; Pulse Ox 100% on R/A; kr2 20:02 Body Mass Index 21.73 (52.16 kg, 154.94 cm) [facility] ED Course: 19:29 Patient arrived in ED. al2 20:00 Triage completed. aj1 20:30 Arm band placed on. kr2 20:30 Patient has correct armband on for positive identification. Bed in low position. Call kr2 light in reach. Side rails up X 1. Adult w/ patient. Pulse ox on. NIBP on. Door closed. Noise minimized. Warm blanket given. Head of bed elevated. 20:43 Vlad Jade MD is Attending Physician. 21:30 No provider procedures requiring assistance completed. Patient did not have IV access kr2 during this emergency room visit. 21:39 Joselyn Burgess, TRACY is Primary Nurse. kr2 Administered Medications: No medications were administered Outcome: 21:35 Discharge ordered by . 21:35 Discharged to home ambulatory, with family. kr2 21:35 Condition: good 21:38 Discharge instructions given to Patient agitated and left prior to receiving discharge kr2 instructions 21:39 Patient left the ED. kr2 Signatures: Susan Ferguson RN RN aj1 Vlad Jade MD MD Joselyn Burgess RN RN kr2 Dipti Byrne al2 Corrections: (The following items were deleted from the chart) 20:05 19:55 Presenting complaint: Patient states: "Im having a lot of pain in my head on the [facility] left side, and I have a headache. I went to see my brain doctor and they told me its part of my bone, but it hurts. And in the back of my head it hurts, where its sunken in" Patient's boyfriend states that she has a soft spot in the back of her head after having surgery for a TBI. Patient states that she's tired of the pain. Patient also states that she has been on her period for the past 3 weeks. aj1
--- NOTE | 2018-07-23 21:36 | EDPHYS ---
Physician Documentation [facility] Name: Laura Smith Age: 38 yrs Sex: Female : 1980 Arrival Date: 07/23/2018 Time: 19:29 Bed 27 Private MD: ED Physician Vlad Jade HPI: 07/23 21:29 This 38 yrs old Female presents to ER via Ambulatory with complaints of gs Dizziness, FALLING,VAGINAL BLEEDING,EAR PAIN, HEAD PAIN. 21:29 The patient presents with dizziness. Onset: The symptoms/episode began/occurred 1 gs month(s) ago. Context: recent head injury, pain to lisa hole sites. Associated signs and symptoms: Pertinent negatives: combativeness, confusion. Severity of symptoms: At their worst the symptoms were mild in the emergency department the symptoms are unchanged. The patient has experienced similar episodes in the past, chronically. demanding pain medication. 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 - Social history:: Smoking status: Patient uses tobacco products, smokes one pack cigarettes per day. - Ebola Screening: : Patient denies travel to an Ebola-affected area in the 21 days before illness onset. ROS: 21:29 All other systems are negative. gs Exam: 21:29 Eyes: Pupils equal round and reactive to light, extra-ocular motions intact. Lids and gs lashes normal. Conjunctiva and sclera are non-icteric and not injected. Cornea within normal limits. Periorbital areas with no swelling, redness, or edema. ENT: Nares patent. No nasal discharge, no septal abnormalities noted. Tympanic membranes are normal and external auditory canals are clear. Oropharynx with no redness, swelling, or masses, exudates, or evidence of obstruction, uvula midline. Mucous membranes moist. Neck: Trachea midline, no thyromegaly or masses palpated, and no cervical lymphadenopathy. Supple, full range of motion without nuchal rigidity, or vertebral point tenderness. No Meningismus. Chest/axilla: Normal chest wall appearance and motion. Nontender with no deformity. No lesions are appreciated. Cardiovascular: Regular rate and rhythm with a normal S1 and S2. No gallops, murmurs, or rubs. Normal PMI, no JVD. No pulse deficits. Respiratory: Lungs have equal breath sounds bilaterally, clear to auscultation and percussion. No rales, rhonchi or wheezes noted. No increased work of breathing, no retractions or nasal flaring. Abdomen/GI: Soft, non-tender, with normal bowel sounds. No distension or tympany. No guarding or rebound. No evidence of tenderness throughout. Back: No spinal tenderness. No costovertebral tenderness. Full range of motion. Skin: Warm, dry with normal turgor. Normal color with no rashes, no lesions, and no evidence of cellulitis. MS/ Extremity: Pulses equal, no cyanosis. Neurovascular intact. Full, normal range of motion. Neuro: Awake and alert, GCS 15, oriented to person, place, time, and situation. Cranial nerves II-XII grossly intact. Motor strength 5/5 in all extremities. Sensory grossly intact. Cerebellar exam normal. Normal gait. 21:29 Constitutional: The patient appears in no acute distress, alert, awake. 21:29 Head/face: Noted is no obvious of injury or deformity except mild tenderness over lisa hole skin healed no breakdown. 21:29 ENT: Ear canal(s): are normal, TM's: are normal. Vital Signs: 20:02 BP 107 / 85; Pulse 80; Resp 18; Temp 98.5; Pulse Ox 100% on R/A; Weight 52.16 kg (R); aj1 Height 5 ft. 1 in. (154.94 cm) (R); Pain 8/10; 21:25 BP 110 / 80; Pulse 80; Resp 16; Pulse Ox 100% on R/A; kr2 20:02 Body Mass Index 21.73 (52.16 kg, 154.94 cm) aj1 MDM: 21:28 Patient medically screened. 21:29 Data reviewed: vital signs, nurses notes. ED course: says has recent visit to doctor for left OM, says jaw clicks when she chews no evidence of dislocation. spoke at length about appropriate use of pain control. Administered Medications: No medications were administered Disposition: 07/23/18 21:35 Discharged to Home. Impression: Chronic pain syndrome, Temporomandibular joint disorders. - Condition is Stable. - Discharge Instructions: Chronic Pain, Temporomandibular Joint Syndrome. - Medication Reconciliation Form, Thank You Letter, Antibiotic Education, Prescription Opioid Use form. - Follow up: Private Physician; When: 1 - 2 days; Reason: Re-evaluation by your physician. Signatures: Susan Ferguson RN RN aj1 Vlad Jade MD MD Joselyn Burgess RN RN kr2 Corrections: (The following items were deleted from the chart) 21:39 21:35 07/23/2018 21:35 Discharged to Home. Impression: Chronic pain syndrome; kr2 Temporomandibular joint disorders. Condition is Stable. Forms are Medication Reconciliation Form, Thank You Letter, Antibiotic Education, Prescription Opioid Use. Follow up: Private Physician; When: 1 - 2 days; Reason: Re-evaluation by your physician.
== END 2018-07-23 21:39 | disposition home or self-care (01) ==
LOC: ER 19:24
DX: G89.4 Chronic pain syndrome (principal); M26.609 Unspecified temporomandibular joint disorder, unspecified side; W19.XXXA Unspecified fall, initial encounter; Y93.9 Activity, unspecified; Y92.9 Unspecified place or not applicable; Z88.0 Allergy status to penicillin; Z88.6 Allergy status to analgesic agent; Z88.8 Allergy status to other drugs, medicaments and biological substances; Z91.048 Other nonmedicinal substance allergy status; F31.9 Bipolar disorder, unspecified; F43.10 Post-traumatic stress disorder, unspecified; F20.9 Schizophrenia, unspecified; J44.9 Chronic obstructive pulmonary disease, unspecified; F17.210 Nicotine dependence, cigarettes, uncomplicated
CPT/HCPCS: 99283

== ENCOUNTER 2018-11-14 17:41 | Emergency (ER) | payer SELFPAY ==
--- OUTSIDE RECORDS SUMMARY | 2018-11-14 17:43 | XMS REPORT ---
:1980 Author Organization [facility] Address [facility] [place] [place] [id number] Care Team Providers Name Role Phone Unavailable Unavailable Unavailable Problems This patient has no known problems. Allergies, Adverse Reactions, Alerts This patient has no known allergies or adverse reactions. Medications This patient has no known medications.
[2018-11-14] MEDS ORDERED: IPRATROPIUM BROM 0.5MG/2.5ML ONE (19:11)
[2018-11-14] MEDS ORDERED: ALBUTEROL 2.5 MG/3 ML NEB SOL ONE (19:11)
--- NOTE | 2018-11-14 19:50 | RAD REPORT ---
EXAM DESCRIPTION: RAD - Chest Pa And Lat (2 Views) - 11/14/2018 7:43 pm CLINICAL HISTORY: COUGH Chest pain. COMPARISON: Chest Single View dated 11/08/2016; Chest Single View dated 08/26/2016; CHEST PA AND LAT 2 VIEW dated 09/22/2014; CHEST SINGLE VIEW dated 06/08/2014 FINDINGS: The lungs are clear. The heart is normal in size. No displaced fractures. IMPRESSION: No acute or concerning finding suspected.
--- NOTE | 2018-11-14 19:58 | EDPHYS ---
Physician Documentation [facility] Name: Laura Smith Age: 38 yrs Sex: Female : 1980 Arrival Date: 11/14/2018 Time: 17:45 Bed 23 Private MD: BALDEMAR Physician Jeb Tabor HPI: 11/14 18:38 This 38 yrs old Female presents to ER via Ambulatory with complaints of Flu kb Symptoms. 18:38 The patient or guardian reports cough, that is intermittent, described as moderate, kb with productive sputum, difficulty breathing. Onset: The symptoms/episode began/occurred 2 week(s) ago. Severity of symptoms: At their worst the symptoms were moderate, in the emergency department the symptoms are unchanged. Modifying factors: The symptoms are alleviated by nothing, the symptoms are aggravated by nothing. Associated signs and symptoms: Pertinent positives: sore throat, Pertinent negatives: chest pain, diarrhea, ear ache, fever, nausea, rhinorrhea, vomiting. The patient has not experienced similar symptoms in the past. The patient has not recently seen a physician. Pt reports she has had a cough and shortness of breath for 2 weeks, worse if she lays down. Reports she can't smoke because the cough is so bad, "I even bought ultra lights to see if that would help and they make me cough too.". 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 - Social history:: Smoking status: Patient/guardian denies using tobacco, Patient/guardian denies using alcohol. - Ebola Screening: : Patient negative for fever greater than or equal to 101.5 degrees Fahrenheit, and additional compatible Ebola Virus Disease symptoms Patient denies exposure to infectious person Patient denies travel to an Ebola-affected area in the 21 days before illness onset. ROS: 18:41 Constitutional: Negative for fever, chills, and weight loss, ENT: Negative for injury, kb pain, and discharge, Neck: Negative for injury, pain, and swelling, Cardiovascular: Negative for chest pain, palpitations, and edema, Abdomen/GI: Negative for abdominal pain, nausea, vomiting, diarrhea, and constipation, Back: Negative for injury and pain, MS/Extremity: Negative for injury and deformity, Skin: Negative for injury, rash, and discoloration, Neuro: Negative for headache, weakness, numbness, tingling, and seizure. 18:41 Respiratory: Positive for cough, with rust-colored sputum, dyspnea on exertion, orthopnea, shortness of breath, wheezing, Negative for hemoptysis, pleurisy. Exam: 18:41 Constitutional: This is a well developed, well nourished patient who is awake, alert, kb and in no acute distress. Head/Face: Normocephalic, atraumatic. Chest/axilla: Normal chest wall appearance and motion. Nontender with no deformity. No lesions are appreciated. Cardiovascular: Regular rate and rhythm with a normal S1 and S2. No gallops, murmurs, or rubs. Normal PMI, no JVD. No pulse deficits. Abdomen/GI: Soft, non-tender, with normal bowel sounds. No distension or tympany. No guarding or rebound. No evidence of tenderness throughout. Back: No spinal tenderness. No costovertebral tenderness. Full range of motion. Skin: Warm, dry with normal turgor. Normal color with no rashes, no lesions, and no evidence of cellulitis. MS/ Extremity: Pulses equal, no cyanosis. Neurovascular intact. Full, normal range of motion. Neuro: Awake and alert, GCS 15, oriented to person, place, time, and situation. Cranial nerves II-XII grossly intact. Motor strength 5/5 in all extremities. Sensory grossly intact. Cerebellar exam normal. Normal gait. 18:41 Respiratory: the patient does not display signs of respiratory distress, Respirations: normal, Breath sounds: rhonchi, that are moderate, are scattered, wheezing: expiratory that is moderate, is scattered. Vital Signs: 17:50 BP 104 / 78; Pulse 76; Resp 18; Temp 98.8(O); Pulse Ox 96% on R/A; Weight 53.52 kg; hj Height 5 ft. 1 in. (154.94 cm); Pain 6/10; 18:50 BP 123 / 75; Pulse 87; Resp 19; Pulse Ox 96% on R/A; ca1 20:15 BP 110 / 65; Pulse 79; Resp 19; Pulse Ox 99% on R/A; ca1 17:50 Body Mass Index 22.29 (53.52 kg, 154.94 cm) hj MDM: 18:20 Patient medically screened. kb 18:42 Data reviewed: vital signs, nurses notes. Data interpreted: Pulse oximetry: on room air kb is 96 %. Interpretation: normal. 19:57 Counseling: I had a detailed discussion with the patient and/or guardian regarding: the kb historical points, exam findings, and any diagnostic results supporting the discharge/admit diagnosis, lab results, radiology results, the need for outpatient follow up, a family practitioner, to return to the emergency department if symptoms worsen or persist or if there are any questions or concerns that arise at home. 19:58 Response to treatment: the patient's symptoms have markedly improved after treatment. kb 11/14 17:52 Order name: Flu; Complete Time: 19:19 11/14 17:52 Order name: Strep; Complete Time: 18:28 11/14 18:21 Order name: Chest Pa And Lat (2 Views) XRAY; Complete Time: 19:51 kb 11/14 19:02 Order name: Throat Culture EDMS Administered Medications: 19:04 Drug: DuoNeb (3:1) (2.5 mg - 0.5 mg) 3 ml Route: Nebulizer; la1 20:00 Follow up: Response: No adverse reaction; Marked relief of symptoms ca1 20:15 Drug: predniSONE 40 mg Route: PO; ca1 20:21 Follow up: Response: Medication administered at discharge. ca1 20:16 Drug: Zithromax 500 mg Route: PO; ca1 20:21 Follow up: Response: Medication administered at discharge. ca1 Disposition: 11/15 07:19 Co-signature as Attending Physician, Jeb Tabor MD I agree with the assessment and veronica plan of care. Disposition: 11/14/18 19:58 Discharged to Home. Impression: Bronchitis, not specified as acute or chronic. - Condition is Stable. - Discharge Instructions: Acute Bronchitis, [id number]. - Prescriptions for Prednisone 20 mg Oral Tablet - take 1 tablet by ORAL route once daily for 5 days; 5 tablet. Zithromax Z- Kevin 250 mg Oral Tablet - take 1 tablet by ORAL route as directed for 5 days Day 1 - take two (2) tablets one time. Day 2, 3, 4 , 5 take one (1) tablet once daily.; 6 tablet. Albuterol Sulfate 90 mcg/actuation - inhale 1-2 puff by INHALATION route every 4-6 hours; 1 Inhaler. - Medication Reconciliation Form, Thank You Letter, Antibiotic Education, Prescription Opioid Use form. - Follow up: Emergency Department; When: As needed; Reason: Worsening of condition. Follow up: Private Physician; When: 2 - 3 days; Reason: Recheck today's complaints, Continuance of care, Re-evaluation by your physician. Signatures: Dispatcher [employer] EDMS Alla Cisneros, DIRECTOR INFORMATICS-C DIRECTOR INFORMATICS-Jeb Toribio MD MD cha Attema, Lee, RN RN la1 Clyde Castellanos RN RN hj Tana Diana RN RN ca1 Corrections: (The following items were deleted from the chart) 11/14 18:40 18:38 Associated signs and symptoms: Pertinent positives: congestion, cough, shortness kb of breath, sore throat, kb 20:24 19:58 11/14/2018 19:58 Discharged to Home. Impression: Bronchitis, not specified as ca1 acute or chronic. Condition is Stable. Forms are Medication Reconciliation Form, Thank You Letter, Antibiotic Education, Prescription Opioid Use. Follow up: Emergency Department; When: As needed; Reason: Worsening of condition. Follow up: Private Physician; When: 2 - 3 days; Reason: Recheck today's complaints, Continuance of care, Re-evaluation by your physician. kb
--- NOTE | 2018-11-14 19:58 | ER ---
Nurse's Notes [facility] Link Name: Laura Smith Age: 38 yrs Sex: Female : 1980 Arrival Date: 11/14/2018 Time: 17:45 Bed 23 Private MD: Diagnosis: Bronchitis, not specified as acute or chronic Presentation: 11/14 17:47 Presenting complaint: Patient states: i have bad cough for 2 weeks now, been coughing hj out brownish phlegm; reports runny nose, wheezing; denies fever;. Transition of care: patient was not received from another setting of care. Onset of symptoms was November 14, 2018 at 17:48. Risk Assessment: Do you want to hurt yourself or someone else? Patient reports no desire to harm self or others. Initial Sepsis Screen: Does the patient meet any 2 criteria? No. Patient's initial sepsis screen is negative. Does the patient have a suspected source of infection? No. Patient's initial sepsis screen is negative. Care prior to arrival: None. 17:47 Method Of Arrival: Ambulatory 17:47 Acuity: DARIEL 4 hj Triage Assessment: 17:50 General: Appears in no apparent distress. uncomfortable, Behavior is calm, cooperative, hj appropriate for age. Pain: Complains of pain in body. 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 - Social history:: Smoking status: Patient/guardian denies using tobacco, Patient/guardian denies using alcohol. - Ebola Screening: : Patient negative for fever greater than or equal to 101.5 degrees Fahrenheit, and additional compatible Ebola Virus Disease symptoms Patient denies exposure to infectious person Patient denies travel to an Ebola-affected area in the 21 days before illness onset. Screenin:50 Abuse screen: Denies threats or abuse. Denies injuries from another. Nutritional hj screening: No deficits noted. Tuberculosis screening: No symptoms or risk factors identified. Fall Risk None identified. Assessment: 18:15 General: Appears in no apparent distress. comfortable, Behavior is calm, cooperative, ca1 appropriate for age. Pain: Denies pain. Neuro: Level of Consciousness is awake, alert, obeys commands, Oriented to person, place, time, situation. Cardiovascular: Heart tones S1 S2 present Capillary refill < 3 seconds Patient's skin is warm and dry. Respiratory: Reports cough that is productive, Airway is patent Respiratory effort is even, unlabored, Respiratory pattern is regular, symmetrical, Breath sounds are clear bilaterally. Onset: The symptoms/episode began/occurred of 2 weeks. GI: No deficits noted. No signs and/or symptoms were reported involving the gastrointestinal system. : No deficits noted. No signs and/or symptoms were reported regarding the genitourinary system. EENT: Reports nasal congestion nasal discharge that is watery. Derm: Skin is intact, is healthy with good turgor, Skin is pink, warm \T\ dry. Musculoskeletal: Circulation, motion, and sensation intact. Capillary refill < 3 seconds. 19:20 Reassessment: Patient appears in no apparent distress at this time. Patient and/or ca1 family updated on plan of care and expected duration. Pain level reassessed. Patient is alert, oriented x 3, equal unlabored respirations, skin warm/dry/pink. 20:10 Reassessment: Patient appears in no apparent distress at this time. Patient is alert, ca1 oriented x 3, equal unlabored respirations, skin warm/dry/pink. Patient states feeling better. Patient states symptoms have improved. Vital Signs: 17:50 BP 104 / 78; Pulse 76; Resp 18; Temp 98.8(O); Pulse Ox 96% on R/A; Weight 53.52 kg; hj Height 5 ft. 1 in. (154.94 cm); Pain 6/10; 18:50 BP 123 / 75; Pulse 87; Resp 19; Pulse Ox 96% on R/A; ca1 20:15 BP 110 / 65; Pulse 79; Resp 19; Pulse Ox 99% on R/A; ca1 17:50 Body Mass Index 22.29 (53.52 kg, 154.94 cm) ED Course: 17:45 Patient arrived in ED. mr 17:48 Triage completed. hj 17:50 Arm band placed on left wrist. hj 17:52 Patient has correct armband on for positive identification. Placed in gown. Bed in low hj position. Call light in reach. Side rails up X 1. Adult w/ patient. 17:57 Flu Sent. hj 17:57 Strep Sent. hj 18:11 Strep Sent. hj 18:11 Flu Sent. hj 18:20 Alla Cisneros FNP-C [facility]. kb 18:20 Jeb Tabor MD is Attending Physician. kb 18:56 Tana Diana, TRACY is Primary Nurse. ca1 19:39 Chest Pa And Lat (2 Views) XRAY In Process Unspecified. EDMS 20:23 No provider procedures requiring assistance completed. Patient did not have IV access ca1 during this emergency room visit. Administered Medications: 19:04 Drug: DuoNeb (3:1) (2.5 mg - 0.5 mg) 3 ml Route: Nebulizer; la1 20:00 Follow up: Response: No adverse reaction; Marked relief of symptoms ca1 20:15 Drug: predniSONE 40 mg Route: PO; ca1 20:21 Follow up: Response: Medication administered at discharge. ca1 20:16 Drug: Zithromax 500 mg Route: PO; ca1 20:21 Follow up: Response: Medication administered at discharge. ca1 Outcome: 19:58 Discharge ordered by MD. kb 20:23 Discharged to home ambulatory, with significant other. ca1 20:23 Condition: stable 20:23 Discharge instructions given to patient, Instructed on discharge instructions, follow up and referral plans. medication usage, Demonstrated understanding of instructions, follow-up care, medications, Prescriptions given X 3. 20:24 Patient left the ED. ca1 Signatures: Dispatcher [employer] EDMS Alla Cisneros FNP-C FNP-Ckb Amira CatesLamine, RN RN la1 Clyde Castellanos, RN RN Tana Millan RN RN ca1 Corrections: (The following items were deleted from the chart) 17:52 17:50 Temp 98.8F Oral; 53.52 kg; Height 5 ft. 1 in.; BMI: 22.3; Pain 6/10; hj hj 17:53 17:50 Pulse 76bpm; Resp 18bpm; Pulse Ox 96% RA; Temp 98.8F Oral; 53.52 kg; Height 5 ft. hj 1 in.; BMI: 22.2; Pain 6/10; hj 19:36 18:50 Pulse 87bpm; Resp 19bpm; Pulse Ox 96% RA; ca1 ca1
[2018-11-14] MEDS ORDERED: AZITHROMYCIN 250 MG TAB ONE (20:26)
[2018-11-14] MEDS ORDERED: predniSONE 20 MG TAB ONE (20:26)
[2018-11-14 21:22] VITALS: TEMP 98.8
[2018-11-14 21:25] VITALS: BP 110/65; O2SAT 99
== END 2018-11-14 20:24 | disposition home or self-care (01) ==
LOC: ER 17:41
DX: J40 Bronchitis, not specified as acute or chronic (principal); F41.8 Other specified anxiety disorders; J44.9 Chronic obstructive pulmonary disease, unspecified; I50.9 Heart failure, unspecified; Z88.0 Allergy status to penicillin; Z91.09 Other allergy status, other than to drugs and biological substances; Z88.8 Allergy status to other drugs, medicaments and biological substances
CPT/HCPCS: 71046; 87070; 87081; 87804; 94640; 99284; J7512

== ENCOUNTER 2021-08-15 12:11 | Emergency (ER) | payer OTHER, SELFPAY ==
--- NOTE | 2021-08-15 12:47 | RAD REPORT ---
EXAM DESCRIPTION: CT - [id number] - 08/15/2021 12:38 pm CLINICAL HISTORY: Trauma, head and neck injury. fall COMPARISON: [id number] dated 04/27/2009 TECHNIQUE: Axial 5 mm thick images of the head were obtained. Axial 2 mm thick images of the cervical spine were obtained with sagittal and coronal reconstruction images generated and reviewed. All CT scans are performed using dose optimization technique as appropriate and may include automated exposure control or mA/KV adjustment according to patient size. FINDINGS: CT HEAD WITHOUT CONTRAST: No acute hemorrhage, hydrocephalus or extra-axial collection is identified.No areas of brain edema or midline shift. Left frontoparietal craniotomy. Remote right occipital skull fracture. The paranasal sinuses and mastoids are clear.The calvarium is intact. CT CERVICAL SPINE WITHOUT CONTRAST: No fracture or subluxation.No prevertebral soft tissues swelling is identified. Mild multilevel cervi vance spondylosis as evidenced by uncovertebral joint hypertrophy and small posterior disc osteophyte c omplexes at the C5-6 and C6-7 levels. This results in mild neural foraminal narrowing bilaterally at these levels. No central spinal stenosis. IMPRESSION: No acute intracranial or cervical spine findings.
[2021-08-15] MEDS ORDERED: IBUPROFEN 200 MG TAB PO ONE (13:26)
--- NOTE | 2021-08-15 13:26 | ER ---
Nurse's Notes [facility] Name: Laura Smith Age: 41 yrs Sex: Female : 1980 Arrival Date: 08/15/2021 Time: 12:13 Bed 3 Private MD: Diagnosis: Unspecified injury of head, initial encounter;Abrasion of other part of head-Left forehead;Contusion of other part of head-Left forehead Presentation: 08/15 12:21 Chief complaint: Patient states: Fell out of parked car when the door opens. Pt reports ss a hx of TBI with residual balance issues. Denies LOC. Care prior to arrival: None. Mechanism of Injury: Fall sitting position. Trauma event details: Injury occurred in the [facility], Injury occurred: in a public building. 12:21 Acuity: DARIEL 3 ss 12:21 Method Of Arrival: EMS: [facility] ss 12:21 Care prior to arrival: Pt arrived C collar and back board. ss 12:21 Coronavirus screen: Client denies travel out of the [place] in the last 14 days. Ebola ss Screen: Patient denies exposure to infectious person. Patient denies travel to an Ebola-affected area in the 21 days before illness onset. Initial Sepsis Screen: Does the patient meet any 2 criteria? No. Patient's initial sepsis screen is negative. Does the patient have a suspected source of infection? No. Patient's initial sepsis screen is negative. Risk Assessment: Do you want to hurt yourself or someone else? Patient reports no desire to harm self or others. Onset of symptoms was August 15, 2021. Trauma Activation: Not Applicable Physician: ED Physician; Name: ; Notified At: ; Arrived At: Physician: General Surgeon; Name: ; Notified At: ; Arrived At: Physician: Radiology; Name: ; Notified At: ; Arrived At: Physician: Respiratory; Name: ; Notified At: ; Arrived At: Physician: Lab; Name: ; Notified At: ; Arrived At: Historical: - Allergies: 12:30 Benadryl; ss 12:30 iodine (IV) (Anaphylaxis); ss 12:30 PENICILLINS (Hives); ss 12:30 Toradol (Hives); ss - PMHx: 12:30 Anxiety; Asthma; Bipolar disorder; CHF; COPD; Pancreatitis; PTSD; Schizophrenia; Skull ss Fracture Left Parietal Area; TIA; - Social history:: Smoking status: Patient reports the use of cigarette tobacco products, smokes one pack cigarettes per day. Screenin:21 Abuse screen: Denies threats or abuse. Denies injuries from another. Tuberculosis ss screening: Never had TB. 13:07 Nutritional screening: No deficits noted. Fall Risk None identified. ld1 Primary Survey: 12:21 NO uncontrolled hemorrhage observed. A: The patient is alert. Airway: patent. ss Breathing/Chest: Respiratory pattern: regular, Respiratory effort: spontaneous, unlabored, Chest inspection: symmetrical rise and fall of the chest. Circulation: Pulses: palpable right radial artery, right dorsalis pedis artery, left radial artery and left dorsalis pedis artery. Skin color: pink, Skin temperature: warm. Disability Alert. Exposure/Environment: There is no evidence of uncontrolled external bleeding. Obvious injury(ies) are noted at this time: abrasions noted to L orbital area. Assessment: 13:07 General: Appears in no apparent distress. comfortable, Behavior is calm, cooperative, ld1 appropriate for age. Pain:. Neuro: Level of Consciousness is awake, alert, obeys commands, Oriented to person, place, time, situation, Appropriate for age. Cardiovascular: Capillary refill < 3 seconds Patient's skin is warm and dry. Rhythm is sinus rhythm. Respiratory: Airway is patent Respiratory effort is even, unlabored, Respiratory pattern is regular, symmetrical. GI: Abdomen is flat, non-distended. : No signs and/or symptoms were reported regarding the genitourinary system. EENT: No signs and/or symptoms were reported regarding the EENT system. Derm: No signs and/or symptoms reported regarding the dermatologic system. Musculoskeletal: No signs and/or symptoms reported regarding the musculoskeletal system. Vital Signs: 12:21 BP 106 / 69; Pulse 85; Resp 14; Pulse Ox 100% on R/A; Weight 68.04 kg; Height 5 ft. 1 ss in. (154.94 cm); Pain 9/10; 12:21 Temp 97.8(TE); ss 12:21 Body Mass Index 28.34 (68.04 kg, 154.94 cm) ss [place] Coma Score: 12:21 Eye Response: spontaneous(4). Verbal Response: oriented(5). Motor Response: obeys commands(6). Total: 15. Trauma Score (Adult): 12:21 Eye Response: spontaneous(1); Verbal Response: oriented(1); Motor Response: obeys ss commands(2); Systolic BP: > 89 mm Hg(4); Respiratory Rate: 10 to 29 per min(4); [place] Score: 15; Trauma Score: 12 ED Course: 12:13 Patient arrived in ED. eb 12:21 Patient has correct armband on for positive identification. Bed in low position. Call ss light in reach. 12:21 Patient maintains SpO2 saturation greater than 95% on room air. ss 12:23 Mirza Campos MD is Attending Physician. kdr 12:26 Triage completed. ss 12:30 Arm band placed on right wrist. ss 12:38 CT Head C Spine In Process Unspecified. EDMS 12:44 patient's hakan Chahal called/ asked that we call him at [phone]/ He will be eb picking her up. 13:07 No provider procedures requiring assistance completed. ld1 13:39 Patient did not have IV access during this emergency room visit. ld1 Administered Medications: 13:28 Drug: Motrin (ibuprofen) 600 mg Route: PO; ld1 Outcome: 13:26 Discharge ordered by . kdr 13:38 Discharged to home via wheelchair, with family. ld1 13:38 Condition: stable 13:38 Discharge instructions given to patient, Instructed on discharge instructions, follow up and referral plans. Demonstrated understanding of instructions, follow-up care. 13:39 Patient left the ED. ld1 Signatures: Dispatcher [employer] EDTN Mirza Campos MD MD [facility] Janessa Purvis RN RN Dipti Edwards Lay Albarran, TRACY RN ld1
--- NOTE | 2021-08-15 13:26 | EDPHYS ---
Physician Documentation [facility] Name: Laura Smith Age: 41 yrs Sex: Female : 1980 Arrival Date: 08/15/2021 Time: 12:13 Bed 3 Private MD: ED Physician Mirza Campos HPI: 08/15 16:49 This 41 yrs old Female presents to ER via EMS with complaints of Fall Injury. kdr 16:49 Details of fall: The patient fell from seated position, Sitting in a car and opened the kdr side door and promptly fell out on the ground. She struck her head. She had no LOC. He does complain of pain to her left forehead and there is an obvious abrasion and contusion to the same area. Patient is otherwise oriented and appropriate. Onset: The symptoms/episode began/occurred suddenly, just prior to arrival. Associated injuries: The patient sustained injury to the head. Severity of symptoms: At their worst the symptoms were mild, in the emergency department the symptoms are unchanged. The patient has not experienced similar symptoms in the past. The patient has not recently seen a physician. Historical: - Allergies: 12:30 Benadryl; ss 12:30 iodine (IV) (Anaphylaxis); ss 12:30 PENICILLINS (Hives); ss 12:30 Toradol (Hives); ss - PMHx: 12:30 Anxiety; Asthma; Bipolar disorder; CHF; COPD; Pancreatitis; PTSD; Schizophrenia; Skull ss Fracture Left Parietal Area; TIA; - Social history:: Smoking status: Patient reports the use of cigarette tobacco products, smokes one pack cigarettes per day. ROS: 16:49 Constitutional: Negative for fever, chills, and weight loss, Eyes: Negative for injury, kdr pain, redness, and discharge, ENT: Negative for injury, pain, and discharge, Neck: Negative for injury, pain, and swelling, Cardiovascular: Negative for chest pain, palpitations, and edema, Respiratory: Negative for shortness of breath, cough, wheezing, and pleuritic chest pain, Abdomen/GI: Negative for abdominal pain, nausea, vomiting, diarrhea, and constipation, Back: Negative for injury and pain, : Negative for injury, bleeding, discharge, and swelling, MS/Extremity: Negative for injury and deformity, Neuro: Negative for headache, weakness, numbness, tingling, and seizure activity. Psych: Negative for depression, anxiety, suicide ideation, homicidal ideation, and hallucinations, Allergy/Immunology: Negative for hives, rash, and allergies, Endocrine: Negative for neck swelling, polydipsia, polyuria, polyphagia, and marked weight changes, Hematologic/Lymphatic: Negative for swollen nodes, abnormal bleeding, and unusual bruising. 16:49 Skin: Positive for abrasion(s), hematoma, of the forehead. Exam: 16:49 Constitutional: This is a well developed, well nourished patient who is awake, alert, kdr and in no acute distress. Head/Face: Normocephalic, there is an obvious contusion and abrasion to the left forehead. Patient otherwise is uninjured Eyes: Pupils equal round and reactive to light, extra-ocular motions intact. Lids and lashes normal. Conjunctiva and sclera are non-icteric and not injected. Cornea within normal limits. Periorbital areas with no swelling, redness, or edema. Neck: Trachea midline, no thyromegaly or masses palpated, and no cervical lymphadenopathy. Supple, full range of motion without nuchal rigidity, or vertebral point tenderness. No Meningismus. Chest/axilla: Normal chest wall appearance and motion. Nontender with no deformity. No lesions are appreciated. Cardiovascular: Regular rate and rhythm with a normal S1 and S2. No gallops, murmurs, or rubs. Normal PMI, no JVD. No pulse deficits. Respiratory: Lungs have equal breath sounds bilaterally, clear to auscultation and percussion. No rales, rhonchi or wheezes noted. No increased work of breathing, no retractions or nasal flaring. Abdomen/GI: Soft, non-tender, with normal bowel sounds. No distension or tympany. No guarding or rebound. No evidence of tenderness throughout. Back: No spinal tenderness. No costovertebral tenderness. Full range of motion. Skin: Warm, dry with normal turgor. Normal color with no rashes, no lesions, and no evidence of cellulitis. MS/ Extremity: Pulses equal, no cyanosis. Neurovascular intact. Full, normal range of motion. Neuro: Awake and alert, GCS 15, oriented to person, place, time, and situation. Cranial nerves II-XII grossly intact. Motor strength 5/5 in all extremities. Sensory grossly intact. Cerebellar exam normal. Normal gait. Psych: Awake, alert, with orientation to person, place and time. Behavior, mood, and affect are within normal limits. 16:49 Skin: lesion(s), noted, and can be described as erythematous, Abrasion. Vital Signs: 12:21 BP 106 / 69; Pulse 85; Resp 14; Pulse Ox 100% on R/A; Weight 68.04 kg; Height 5 ft. 1 ss in. (154.94 cm); Pain 9/10; 12:21 Temp 97.8(TE); ss 12:21 Body Mass Index 28.34 (68.04 kg, 154.94 cm) ss [place] Coma Score: 12:21 Eye Response: spontaneous(4). Verbal Response: oriented(5). Motor Response: obeys ss commands(6). Total: 15. Trauma Score (Adult): 12:21 Eye Response: spontaneous(1); Verbal Response: oriented(1); Motor Response: obeys ss commands(2); Systolic BP: > 89 mm Hg(4); Respiratory Rate: 10 to 29 per min(4); [place] Score: 15; Trauma Score: 12 MDM: 13:26 Patient medically screened. kdr 16:49 Data reviewed: vital signs, nurses notes, lab test result(s), radiologic studies. kdr Counseling: I had a detailed discussion with the patient and/or guardian regarding: the historical points, exam findings, and any diagnostic results supporting the discharge/admit diagnosis, lab results, radiology results, the need for outpatient follow up. 08/15 12:29 Order name: CT Head C Spine; Complete Time: 13:09 eb Administered Medications: 13:28 Drug: Motrin (ibuprofen) 600 mg Route: PO; ld1 Disposition Summary: 08/15/21 13:26 Discharge Ordered Location: Home kdr Problem: new kdr Symptoms: have improved kdr Condition: Stable kdr Diagnosis - Unspecified injury of head, initial encounter kdr - Abrasion of other part of head - Left forehead kdr - Contusion of other part of head - Left forehead kdr Followup: kdr - With: Private Physician - When: 2 - 3 days - Reason: If symptoms return, Further diagnostic work-up, Recheck today's complaints, Continuance of care, Re-evaluation by your physician Discharge Instructions: - Discharge Summary Sheet kdr - Abrasion, [id number] kdr - Head Injury, Adult, [id number] kdr Forms: - Medication Reconciliation Form kdr - Thank You Letter kdr Signatures: Dispatcher [employer] EDMS Mirza Campos MD MD kdr Janessa Purvis RN RN ss Lay Albarran RN RN ld1 Corrections: (The following items were deleted from the chart) 12:33 12:24 Head Brain Wo Cont+CT.RAD.BRZ ordered. EDMS EDMS
[2021-08-15 13:46] VITALS: BP 106/69; TEMP 97.8; O2SAT 100
== END 2021-08-15 13:39 | disposition home or self-care (01) ==
LOC: ER 12:11
DX: S00.81XA Abrasion of other part of head, initial encounter (principal); W17.89XA Other fall from one level to another, initial encounter; F17.210 Nicotine dependence, cigarettes, uncomplicated; Z88.0 Allergy status to penicillin; Z88.5 Allergy status to narcotic agent; Z88.8 Allergy status to other drugs, medicaments and biological substances; Z91.048 Other nonmedicinal substance allergy status
CPT/HCPCS: 70450; 72125; 99284

== ENCOUNTER 2022-08-08 15:45 | Emergency (ER) | payer OTHER ==
--- OUTSIDE RECORDS SUMMARY | 2022-08-08 15:53 | XMS REPORT | Continuity of Care Document ---
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 DULoxetine 2019-08 Yes duloxetine [facility] 30 mg 0-08 30 mg [facility] capsule 00:00[place] lay[place] [facility] release [facility] TAKE ONE (1) CAPSULE(S) BY MOUTH ONCE A DAY. DULoxetine 2019-08 Yes duloxetine [facility] 30 mg 0-08 30 mg [facility] capsule 00:00: [place] 00 lay[place] [facility] release [facility] TAKE ONE (1) CAPSULE(S) BY MOUTH ONCE A DAY. DULoxetine 2019-08 Yes duloxetine [facility] 30 mg 0-08 30 mg [facility] capsule 00:00: [place] 00 lay[place] [facility] release [facility] TAKE ONE (1) CAPSULE(S) BY MOUTH ONCE A DAY. rivastigmin 2019-0 Yes 1{patch Apply 1 [facility] 4.6 mg/24 1-02 } Patch to ity of hr patch 00:00: skin [place] 00 daily. Medical Branch rivastigmin Yes 1{patch Apply 1 [facility] 4.6 mg/24 1-02 } Patch to ity of hr patch 00:00: skin [place] 00 daily. Medical Branch rivastigmin 2019-0 Yes 1{patch Apply 1 [facility] e 4.6 mg/24 1-02 } Patch to ity of hr patch 00:00: skin [place] 00 daily. Medical Branch rivastigmin 2019-0 Yes 1{patch Apply 1 [facility] e 4.6 mg/24 1-02 } Patch to ity of hr patch 00:00: skin [place] 00 daily. Medical Branch rivastigmin 2020-0 Yes 1{patch Apply 1 [facility] e 4.6 mg/24 1-02 } Patch to ity of hr patch 00:00: skin [place] 00 daily. Medical Branch QUEtiapine 2018-08 Yes 25mg Take 25 mg U n[facility] 25 mg 1-19 by mouth ity of tablet 13:15: daily. [address] benztropine 2018-08 Yes 1mg Take 1 mg [facility] 1 mg tablet 1-19 by mouth ity of 13:15: daily. [address] butalbital- 2018-08 Yes 1{tbl} Take 1 [facility] acetaminoph 1-19 tablet by ity of en-caff 13:15: mouth [place] 50-325-40 03 every 4 Medical mg tablet (four) Branch hours as needed for Pain (scale 4-6). QUEtiapine 2018-08 Yes 25mg Take 25 mg [facility] 25 mg 1-19 by mouth ity of tablet 13:15: daily. [address] benztropine 2018-08 Yes 1mg Take 1 mg [facility] 1 mg tablet 1-19 by mouth ity of 13:15: daily. [address] 2018-08 Yes 1{tbl} Take 1 [facility] acetaminoph 1-19 tablet by ity of en-caff 13:15: mouth [place] 50-325-40 03 every 4 Medical mg tablet (four) Branch hours as needed for Pain (scale 4-6). QUEtiapine 2018-08 Yes 25mg Take 25 mg [facility] 25 mg 1-19 by mouth ity of tablet 13:15: daily. [address] benztropine 2018-08 Yes 1mg Take 1 mg [facility] 1 mg tablet 1-19 by mouth ity of 13:15: daily. [address] 2018-08 Yes 1{tbl} Take 1 [facility] acetaminoph 1-19 tablet by ity of en-caff 13:15: mouth [place] 50-325-40 03 every 4 Medical mg tablet (four) Branch hours as needed for Pain (scale 4-6). QUEtiapine 2018-08 Yes 25mg Take 25 mg [facility] 25 mg 1-19 by mouth ity of tablet 13:15: daily. [address] benztropine 2018-08 Yes 1mg Take 1 mg [facility] 1 mg tablet 1-19 by mouth ity of 13:15: daily. [address] butalbital- 2018-08 Yes 1{tbl} Take 1 [facility] acetaminoph 1-19 tablet by ity of en-caff 13:15: mouth [place] 50-325-40 03 every 4 Medical mg tablet (four) Branch hours as needed for Pain (scale 4-6). QUEtiapine 2018-08 Yes 25mg Take 25 mg [facility] 25 mg 1-19 by mouth ity of tablet 13:15: daily. [place] [facility] benztropine 2018-08 Yes 1mg Take 1 mg [facility] nivers 1 mg tablet 1-19 by mouth ity of 13:15: daily. [place] [facility] butalbital- 2018-08 Yes 1{tbl} Take 1 [facility] acetaminoph 1-19 tablet by ity of en-caff 13:15: mouth [place] 50-325-40 03 every 4 Medical mg tablet (four) Branch hours as needed for Pain (scale 4-6). traMADOL 50 Yes [id number] 50mg Take 1 [facility] mg tablet 1-29 tablet by ity o f 00:00: mouth [place] 00 every 8 Medical (eight) Branch hours as needed for Pain (scale 7-10). traMADOL 50 Yes [id number] 50mg Take 1 [facility] mg tablet 1-29 tablet by ity o f 00:00: mouth [place] 00 every 8 Medical (eight) Branch hours as needed for Pain (scale 7-10). traMADOL 50 2018-0 Yes [id number] 50mg Take 1 [facility] mg tablet 1-29 tablet by ity o f 00:00: mouth [place] 00 every 8 Medical (eight) Branch hours as needed for Pain (scale 7-10). traMADOL 50 0 Yes [id number] 50mg Take 1 [facility] mg tablet 1-29 tablet by ity o f 00:00: mouth [place] 00 every 8 Medical (eight) Branch hours as needed for Pain (scale 7-10). traMADOL 50 2018-0 Yes [id number] 50mg Take 1 [facility] mg tablet 1-29 tablet by ity o f 00:00: mouth [place] 00 every 8 Medical (eight) Branch hours as needed for Pain (scale 7-10). proMETHazin Yes 25mg Take 1 Univ ers e 25 mg 9-29 tablet by ity of tablet 00:00: mouth [place] 00 every 6 Medical (six) Branch hours as needed for Nausea and Vomiting (N/V) or Other (headache) . Can be crushed and placed in PEG tube as needed proMETHazin 2018-0 Yes 25mg Take 1 Univ ers e 25 mg 9-29 tablet by ity of tablet 00:00: mouth [place] 00 every 6 Medical (six) Branch hours as needed for Nausea and Vomiting (N/V) or Other (headache) . Can be crushed and placed in PEG tube as needed proMETHazin 2018-0 Yes 25mg Take 1 Univ ers e 25 mg 9-29 tablet by ity of tablet 00:00: mouth [place] 00 every 6 Medical (six) Branch hours as needed for Nausea and Vomiting (N/V) or Other (headache) . Can be crushed and placed in PEG tube as needed proMETHazin 2018-0 Yes 25mg Take 1 Univ ers e 25 mg 9-29 tablet by ity of tablet 00:00: mouth [place] 00 every 6 Medical (six) Branch hours as needed for Nausea and Vomiting (N/V) or Other (headache) . Can be crushed and placed in PEG tube as needed proMETHazin 2017- Yes 25mg Take 1 Univ ers e 25 mg 9-29 tablet by ity of tablet 00:00: mouth [place] 00 every 6 Medical (six) Branch hours as needed for Nausea and Vomiting (N/V) or Other (headache) . Can be crushed and placed in PEG tube as needed FERROUS 2009-0 Yes Take one Univer s SULFATE 325 2-19 tablet by ity of MG (65 MG 00:00: mouth [place] IRON) ORAL 00 twice Medical TAB daily Branch FERROUS Yes Take one Univer s SULFATE 325 2-19 tablet by ity of MG (65 MG 00:00: mouth [place] IRON) ORAL 00 twice Medical TAB daily Branch FERROUS 0 Yes Take one Univer s SULFATE 325 2-19 tablet by ity of MG (65 MG 00:00: mouth [place] IRON) ORAL 00 twice Medical TAB daily Branch FERROUS 2009-0 Yes Take one Univer s SULFATE 325 2-19 tablet by ity of MG (65 MG 00:00: mouth [place] IRON) ORAL 00 twice Medical TAB daily Branch FERROUS Yes Take one Univer s SULFATE 325 2-19 tablet by ity of MG (65 MG 00:00: mouth [place] IRON) ORAL 00 twice Medical TAB daily Branch alprazolam alprazolam No alprazolam [place] 0.25 mg 0.25 mg 0.25 mg Commun i tablet TAKE tablet TAKE tablet ty ONE (1) ONE (1) TAKE ONE Hospi ta TABLET(S) TABLET(S) (1) l BY MOUTH BY MOUTH TABLET(S) Cl inics ONCE A DAY ONCE A DAY BY MOUTH NEEDED. NEEDED. ONCE A DAY NEEDED. baclofen 10 baclofen 10 No baclofen [place] mg tablet mg tablet 10 mg Comm uni tablet ty Hospita l Clinics buprenorphi buprenorphi No buprenorph [place] ne 8 ne 8 ine 8 Communi mg-naloxone mg-naloxone mg-naloxon ty 2 mg 2 mg e 2 mg Hospita sublingual sublingual sublingual l film film film Clinics DISSOLVE DISSOLVE DISSOLVE ONE (1) ONE (1) ONE (1) FILM BY FILM BY FILM BY MOUTH TWICE MOUTH TWICE MOUTH A DAY. A DAY. TWICE A DAY. duloxetine duloxetine No duloxetine [place] 30 mg 30 mg 30 mg [facility] capsule,del capsule,del capsule,de ty ayed ayed layed Hospita release release release l TAKE ONE TAKE ONE TAKE ONE Cli nics (1) (1) (1) CAPSULE(S) CAPSULE(S) CAPSULE(S) BY MOUTH BY MOUTH BY MOUTH ONCE A DAY. ONCE A DAY. ONCE A DAY. Kenalog 40 Kenalog 40 No 40mg Kenalog 40 [place] mg/mL mg/mL mg/mL [facility] suspension suspension suspension ty for for for Hospita injection injection injection l Take 40 mg Take 40 mg Take 40 mg Clinics by by by injection injection injection route as route as route as directed directed directed for 1 day. for 1 day. for 1 day. nitrofurant nitrofurant No nitrofuran [place] oin oin toin Communi monohydrate monohydrate monohydrat ty /macrocryst /macrocryst e/macrocry Hospita als 100 mg als 100 mg stals 100 l capsule capsule mg capsule Cli nics TAKE ONE TAKE ONE TAKE ONE (1) (1) (1) CAPSULE(S) CAPSULE(S) CAPSULE(S) BY MOUTH BY MOUTH BY MOUTH EVERY EVERY EVERY TWELVE TWELVE TWELVE HOURS FOR HOURS FOR HOURS FOR 14 DAYS. 14 DAYS. 14 DAYS. pantoprazol pantoprazol No pantoprazo [place] e 40 mg e 40 mg le 40 mg Commu ni tablet,mu tablet,mu tablet,del ty yed release yed release ayed H ospita TAKE ONE TAKE ONE release l (1) (1) TAKE ONE Clinics TABLET(S) TABLET(S) (1) BY MOUTH BY MOUTH TABLET(S) ONCE A DAY ONCE A DAY BY MOUTH IN THE IN THE ONCE A DAY MORNING. MORNING. IN THE MORNING. ProAir HFA ProAir HFA No ProAir HFA [place] 90 90 90 Communi mcg/actuati mcg/actuati mcg/actuat ty on aerosol on aerosol ion Hos martine inhaler inhaler aerosol l INHALE TWO INHALE TWO inhaler Clinics (2) PUFF(S) (2) PUFF(S) INHALE TWO BY MOUTH BY MOUTH (2) EVERY FOUR EVERY FOUR PUFF(S) BY TO SIX TO SIX MOUTH HOURS HOURS EVERY FOUR NEEDED. NEEDED. TO SIX HOURS NEEDED. sulfamethox sulfamethox No sulfametho [place] azole 800 azole 800 xazole 800 [facility] mg-trimetho mg-trimetho mg-trimeth ty prim 160 mg prim 160 mg oprim 160 Hospita tablet TAKE tablet TAKE mg tablet l ONE (1) ONE (1) TAKE ONE Clini cs TABLET(S) TABLET(S) (1) BY MOUTH BY MOUTH TABLET(S) EVERY EVERY BY MOUTH TWELVE TWELVE EVERY HOURS FOR 7 HOURS FOR 7 TWELVE DAYS. DAYS. HOURS FOR 7 DAYS. tizanidine tizanidine No tizanidine [place] 2 mg tablet 2 mg tablet 2 mg [facility] TAKE ONE TAKE ONE tablet ty (1) (1) TAKE ONE Hospita TABLET(S) TABLET(S) (1) l BY MOUTH BY MOUTH TABLET(S) Cl inics ONCE AT ONCE AT BY MOUTH BEDTIME. BEDTIME. ONCE AT BEDTIME. alprazolam alprazolam No alprazolam [place] 0.25 mg 0.25 mg 0.25 mg Commun i tablet TAKE tablet TAKE tablet ty ONE (1) ONE (1) TAKE ONE Hospi ta TABLET(S) TABLET(S) (1) l BY MOUTH BY MOUTH TABLET(S) Cl inics DAILY DAILY BY MOUTH NEEDED. NEEDED. DAILY NEEDED. baclofen 10 baclofen 10 No baclofen [place] mg tablet mg tablet 10 mg Comm uni TAKE ONE TAKE ONE tablet ty (1) (1) TAKE ONE Hospita TABLET(S) TABLET(S) (1) l BY MOUTH BY MOUTH TABLET(S) Cl inics FOUR TIMES FOUR TIMES BY MOUTH A DAY. A DAY. FOUR TIMES A DAY. buprenorphi buprenorphi No buprenorph [place] ne 8 ne 8 ine 8 Communi mg-naloxone mg-naloxone mg-naloxon ty 2 mg 2 mg e 2 mg Hospita sublingual sublingual sublingual l film APPLY film APPLY film APPLY Clinics ONE (1) ONE (1) ONE (1) FILM UNDER FILM UNDER FILM UNDER TONGUE TO TONGUE TO TONGUE TO DISSOLVE DISSOLVE DISSOLVE TWICE A DAY TWICE A DAY TWICE A FOR 28 FOR 28 DAY FOR 28 DAY(S). DAY(S). DAY(S). duloxetine duloxetine No duloxetine [place] 40 mg 40 mg 40 mg [facility] capsule,del capsule,del capsule,de ty ayed ayed layed Hospita release release release l TAKE ONE TAKE ONE TAKE ONE Cli nics (1) (1) (1) CAPSULE(S) CAPSULE(S) CAPSULE(S) BY MOUTH BY MOUTH BY MOUTH ONCE A DAY. ONCE A DAY. ONCE A DAY. Elmiron 100 Elmiron 100 No Elmiron [place] mg capsule mg capsule 100 mg [facility] TAKE ONE TAKE ONE capsule ty (1) CAPSULE (1) CAPSULE TAKE ONE Hospita ON AN EMPTY ON AN EMPTY (1) l STOMACH STOMACH CAPSULE ON Cli nics THREE TIMES THREE TIMES AN EMPTY A DAY. A DAY. STOMACH THREE TIMES A DAY. pantoprazol pantoprazol No pantoprazo [place] e 40 mg e 40 mg le 40 mg Com[facility] ni tablet,mu tablet,mu tablet,del ty yed release yed release ayed H ospita TAKE ONE TAKE ONE release l (1) (1) TAKE ONE Clinics TABLET(S) TABLET(S) (1) BY MOUTH BY MOUTH TABLET(S) ONCE A DAY ONCE A DAY BY MOUTH IN THE IN THE ONCE A DAY MORNING. MORNING. IN THE MORNING. tizanidine tizanidine No tizanidine [place] 2 mg tablet 2 mg tablet 2 mg [facility] TAKE ONE TAKE ONE tablet ty (1) (1) TAKE ONE Hospita TABLET(S) TABLET(S) (1) l BY MOUTH BY MOUTH TABLET(S) Cl inics ONCE AT ONCE AT BY MOUTH BEDTIME. BEDTIME. ONCE AT BEDTIME. alprazolam alprazolam No alprazolam [place] 0.25 mg 0.25 mg 0.25 mg Commun i tablet TAKE tablet TAKE tablet ty ONE (1) ONE (1) TAKE ONE Hospi ta TABLET(S) TABLET(S) (1) l BY MOUTH BY MOUTH TABLET(S) Cl inics DAILY DAILY BY MOUTH NEEDED. NEEDED. DAILY NEEDED. baclofen 10 baclofen 10 No baclofen [place] mg tablet mg tablet 10 mg Comm uni TAKE ONE TAKE ONE tablet ty (1) (1) TAKE ONE Hospita TABLET(S) TABLET(S) (1) l BY MOUTH BY MOUTH TABLET(S) Cl inics FOUR TIMES FOUR TIMES BY MOUTH A DAY. A DAY. FOUR TIMES A DAY. buprenorphi buprenorphi No buprenorph [place] ne 8 ne 8 ine 8 Communi mg-naloxone mg-naloxone mg-naloxon ty 2 mg 2 mg e 2 mg Hospita sublingual sublingual sublingual l film TAKE film TAKE film TAKE Clinics ONE (1) ONE (1) ONE (1) FILM BY FILM BY FILM BY MOUTH TWICE MOUTH TWICE MOUTH A DAY. A DAY. TWICE A DAY. duloxetine duloxetine No duloxetine [place] 40 mg 40 mg 40 mg [facility] capsule,del capsule,del capsule,de ty ayed ayed layed Hospita release release release l TAKE ONE TAKE ONE TAKE ONE Cli nics (1) (1) (1) CAPSULE(S) CAPSULE(S) CAPSULE(S) BY MOUTH BY MOUTH BY MOUTH ONCE A DAY. ONCE A DAY. ONCE A DAY. Elmiron 100 El[place] 100 No Elmiron [place] mg capsule mg capsule 100 mg [facility] TAKE ONE TAKE ONE capsule ty (1) CAPSULE (1) CAPSULE TAKE ONE Hospita ON AN EMPTY ON AN EMPTY (1) l STOMACH STOMACH CAPSULE ON Cli nics THREE TIMES THREE TIMES AN EMPTY A DAY. A DAY. STOMACH THREE TIMES A DAY. pantoprazol pantoprazol No pantoprazo [place] e 40 mg e 40 mg le 40 mg Com[facility] ni tablet,mu tablet,mu tablet,del ty yed release yed release ayed H ospita TAKE ONE TAKE ONE release l (1) (1) TAKE ONE Clinics TABLET(S) TABLET(S) (1) BY MOUTH BY MOUTH TABLET(S) ONCE A DAY ONCE A DAY BY MOUTH IN THE IN THE ONCE A DAY MORNING. MORNING. IN THE MORNING. tizanidine tizanidine No tizanidine [place] 2 mg tablet 2 mg tablet 2 mg [facility] TAKE ONE TAKE ONE tablet ty (1) (1) TAKE ONE Hospita TABLET(S) TABLET(S) (1) l BY MOUTH BY MOUTH TABLET(S) Cl inics ONCE AT ONCE AT BY MOUTH BEDTIME. BEDTIME. ONCE AT BEDTIME. alprazolam alprazolam No 1 Q1D alprazolam [place] 0.25 mg 0.25 mg 0.25 mg Commun i tablet Take tablet Take tablet ty 1 tablet 1 tablet Take 1 Hospi ta every day every day tablet l by oral by oral every day Clin ics route as route as by oral needed for needed for route as 30 days. 30 days. needed for 30 days. baclofen 10 baclofen 10 No 1 QID baclofen [place] mg tablet mg tablet 10 mg Comm uni Take 1 Take 1 tablet ty tablet 4 tablet 4 Take 1 Hospi ta times a day times a day tablet 4 l by oral by oral times a Clinic s route as route as day by directed directed oral route for 30 for 30 as days. days. directed for 30 days. buprenorphi buprenorphi No buprenorph [place] ne 8 ne 8 ine 8 Communi mg-naloxone mg-naloxone mg-naloxon ty 2 mg 2 mg e 2 mg Hospita sublingual sublingual sublingual l film film film [facility] DISSOLVE DISSOLVE DISSOLVE ONE (1) ONE (1) ONE (1) FILM(S) BY FILM(S) BY FILM(S) BY MOUTH TWICE MOUTH TWICE MOUTH DAILY. DAILY. TWICE DAILY. cholecalcif cholecalcif No 1capsul Q1W cholecalci [place] aziza aziza e(s) ferol Communi (vitamin (vitamin (vitamin ty D3) 1,250 D3) 1,250 D3) 1,250 Hospita mcg (50,000 mcg (50,000 mcg l unit) unit) (50,000 Clinics capsule capsule unit) Take 1 Take 1 capsule capsule capsule Take 1 every week every week capsule by oral by oral every week route as route as by oral directed directed route as for 90 for 90 directed days. days. for 90 days. duloxetine duloxetine No 1capsul Q1D duloxetine [place] 40 mg 40 mg e(s) 40 mg [facility]i capsule,del capsule,del capsule,de ty ayed ayed layed Hospita release release release l Take 1 Take 1 Take 1 Clinics capsule capsule capsule every day every day every day by oral by oral by oral route as route as route as directed directed directed for 30 for 30 for 30 days. days. days. Elmiron 100 [place] 100 No Elmiron [place] mg capsule mg capsule 100 mg [facility] TAKE ONE TAKE ONE capsule ty (1) CAPSULE (1) CAPSULE TAKE ONE Hospita ON AN EMPTY ON AN EMPTY (1) l STOMACH STOMACH CAPSULE ON Cli nics THREE TIMES THREE TIMES AN EMPTY A DAY. A DAY. STOMACH THREE TIMES A DAY. pantoprazol pantoprazol No pantoprazo [place] e 40 mg e 40 mg le 40 mg Com[facility] ni tablet,mu tablet,mu tablet,del ty yed release yed release ayed H ospita TAKE ONE TAKE ONE release l (1) (1) TAKE ONE Clinics TABLET(S) TABLET(S) (1) BY MOUTH BY MOUTH TABLET(S) ONCE A DAY ONCE A DAY BY MOUTH IN THE IN THE ONCE A DAY MORNING. MORNING. IN THE MORNING. phenazopyri phenazopyri No phenazopyr [place] dine 200 mg dine 200 mg idine 200 Communi tablet TAKE tablet TAKE mg tablet ty ONE (1) ONE (1) TAKE ONE Hospi ta TABLET(S) TABLET(S) (1) l BY MOUTH BY MOUTH TABLET(S) Cl inics THREE TIMES THREE TIMES BY MOUTH A DAY FOR 3 A DAY FOR 3 THREE DAYS. DAYS. TIMES A DAY FOR 3 DAYS. sulfamethox sulfamethox No 1 Q12H sulfametho [place] azole 800 azole 800 xazole 800 [facility]i mg-trimetho mg-trimetho mg-trimeth ty prim 160 mg prim 160 mg oprim 160 Hospita tablet Take tablet Take mg tablet l 1 tablet 1 tablet Take 1 Clini cs every 12 every 12 tablet hours by hours by every 12 oral route oral route hours by as directed as directed oral route for 7 days. for 7 days. as directed for 7 days. tizanidine tizanidine No tizanidine [place] 2 mg tablet 2 mg tablet 2 mg [facility] TAKE ONE TAKE ONE tablet ty (1) (1) TAKE ONE Hospita TABLET(S) TABLET(S) (1) l BY MOUTH BY MOUTH TABLET(S) Cl inics ONCE AT ONCE AT BY MOUTH BEDTIME. BEDTIME. ONCE AT BEDTIME. alprazolam alprazolam No 1 Q1D alprazolam [place] 0.25 mg 0.25 mg 0.25 mg Commun i tablet Take tablet Take tablet ty 1 tablet 1 tablet Take 1 Hospi ta every day every day tablet l by oral by oral every day Clin ics route as route as by oral needed for needed for route as 30 days. 30 days. needed for 30 days. baclofen 10 baclofen 10 No baclofen [place] mg tablet mg tablet 10 mg Comm uni TAKE ONE TAKE ONE tablet ty (1) (1) TAKE ONE Hospita TABLET(S) TABLET(S) (1) l BY MOUTH BY MOUTH TABLET(S) Cl inics FOUR TIMES FOUR TIMES BY MOUTH A DAY A DAY FOUR TIMES DIRECTED. DIRECTED. A DAY DIRECTED. buprenorphi buprenorphi No buprenorph [place] ne 8 ne 8 ine 8 Communi mg-naloxone mg-naloxone mg-naloxon ty 2 mg 2 mg e 2 mg Hospita sublingual sublingual sublingual l film TAKE film TAKE film TAKE Clinics ONE (1) ONE (1) ONE (1) FILM TWICE FILM TWICE FILM TWICE A DAY FOR A DAY FOR A DAY FOR 28 DAY(S). 28 DAY(S). 28 DAY(S). cholecalcif cholecalcif No cholecalci [place] aziza aziza ferol Communi (vitamin (vitamin (vitamin ty D3) 1,250 D3) 1,250 D3) 1,250 Hospita mcg (50,000 mcg (50,000 mcg l unit) unit) (50,000 Clinics capsule capsule unit) TAKE ONE TAKE ONE capsule (1) (1) TAKE ONE CAPSULE(S) CAPSULE(S) (1) BY MOUTH BY MOUTH CAPSULE(S) EVERY WEEK EVERY WEEK BY MOUTH EVERY WEEK DIRECTED. DIRECTED. DIRECTED. duloxetine duloxetine No duloxetine [place] 40 mg 40 mg 40 mg [facility]i capsule,del capsule,del capsule,de ty ayed ayed layed Hospita release release release l TAKE ONE TAKE ONE TAKE ONE Cli nics (1) (1) (1) CAPSULE(S) CAPSULE(S) CAPSULE(S) BY MOUTH BY MOUTH BY MOUTH EVERY DAY EVERY DAY EVERY DAY DIRECTED. DIRECTED. DIRECTED. Elmiron 100 El[place] 100 No Elmiron [place] mg capsule mg capsule 100 mg [facility] TAKE ONE TAKE ONE capsule ty (1) CAPSULE (1) CAPSULE TAKE ONE Hospita ON AN EMPTY ON AN EMPTY (1) l STOMACH STOMACH CAPSULE ON Cli nics THREE TIMES THREE TIMES AN EMPTY A DAY. A DAY. STOMACH THREE TIMES A DAY. pantoprazol pantoprazol No pantoprazo [place] e 40 mg e 40 mg le 40 mg Com[facility] ni tablet,mu tablet,mu tablet,del ty yed release yed release ayed H ospita TAKE ONE TAKE ONE release l (1) (1) TAKE ONE Clinics TABLET(S) TABLET(S) (1) BY MOUTH BY MOUTH TABLET(S) ONCE A DAY ONCE A DAY BY MOUTH IN THE IN THE ONCE A DAY MORNING. MORNING. IN THE MORNING. phenazopyri phenazopyri No phenazopyr [place] dine 200 mg dine 200 mg idine 200 [facility]i tablet TAKE tablet TAKE mg tablet ty ONE (1) ONE (1) TAKE ONE Hospi ta TABLET(S) TABLET(S) (1) l BY MOUTH BY MOUTH TABLET(S) Cl inics THREE TIMES THREE TIMES BY MOUTH A DAY FOR 3 A DAY FOR 3 THREE DAYS. DAYS. TIMES A DAY FOR 3 DAYS. alprazolam alprazolam No 1 Q1D alprazolam [place] 0.25 mg 0.25 mg 0.25 mg Commun i tablet Take tablet Take tablet ty 1 tablet 1 tablet Take 1 Hospi ta every day every day tablet l by oral by oral every day Clin ics route as route as by oral needed for needed for route as 30 days. 30 days. needed for 30 days. baclofen 10 baclofen 10 No baclofen [place] mg tablet mg tablet 10 mg Comm uni TAKE ONE TAKE ONE tablet ty (1) (1) TAKE ONE Hospita TABLET(S) TABLET(S) (1) l BY MOUTH BY MOUTH TABLET(S) Cl inics FOUR TIMES FOUR TIMES BY MOUTH A DAY A DAY FOUR TIMES DIRECTED. DIRECTED. A DAY DIRECTED. buprenorphi buprenorphi No buprenorph [place] ne 8 ne 8 ine 8 Communi mg-naloxone mg-naloxone mg-naloxon ty 2 mg 2 mg e 2 mg Hospita sublingual sublingual sublingual l film TAKE film TAKE film TAKE Clinics ONE (1) ONE (1) ONE (1) FILM TWICE FILM TWICE FILM TWICE A DAY FOR A DAY FOR A DAY FOR 28 DAY(S). 28 DAY(S). 28 DAY(S). cholecalcif cholecalcif No cholecalci [place] aziza aziza ferol Communi (vitamin (vitamin (vitamin ty D3) 1,250 D3) 1,250 D3) 1,250 Hospita mcg (50,000 mcg (50,000 mcg l unit) unit) (50,000 Clinics capsule capsule unit) TAKE ONE TAKE ONE capsule (1) (1) TAKE ONE CAPSULE(S) CAPSULE(S) (1) BY MOUTH BY MOUTH CAPSULE(S) EVERY WEEK EVERY WEEK BY MOUTH EVERY WEEK DIRECTED. DIRECTED. DIRECTED. duloxetine duloxetine No duloxetine [place] 40 mg 40 mg 40 mg [facility] capsule,del capsule,del capsule,de ty ayed ayed layed Hospita release release release l TAKE ONE TAKE ONE TAKE ONE Cli nics (1) (1) (1) CAPSULE(S) CAPSULE(S) CAPSULE(S) BY MOUTH BY MOUTH BY MOUTH EVERY DAY EVERY DAY EVERY DAY DIRECTED. DIRECTED. DIRECTED. Elmiron 100 [place] 100 No Elmiron [place] mg capsule mg capsule 100 mg [facility] TAKE ONE TAKE ONE capsule ty (1) CAPSULE (1) CAPSULE TAKE ONE Hospita ON AN EMPTY ON AN EMPTY (1) l STOMACH STOMACH CAPSULE ON Cli nics THREE TIMES THREE TIMES AN EMPTY A DAY. A DAY. STOMACH THREE TIMES A DAY. pantoprazol pantoprazol No pantoprazo [place] e 40 mg e 40 mg le 40 mg Commu ni tablet,mu tablet,mu tablet,del ty yed release yed release ayed H ospita TAKE ONE TAKE ONE release l (1) (1) TAKE ONE Clinics TABLET(S) TABLET(S) (1) BY MOUTH BY MOUTH TABLET(S) ONCE A DAY ONCE A DAY BY MOUTH IN THE IN THE ONCE A DAY MORNING. MORNING. IN THE MORNING. phenazopyri phenazopyri No phenazopyr [place] dine 200 mg dine 200 mg idine 200 [facility]i tablet TAKE tablet TAKE mg tablet ty ONE (1) ONE (1) TAKE ONE Hospi ta TABLET(S) TABLET(S) (1) l BY MOUTH BY MOUTH TABLET(S) Cl inics THREE TIMES THREE TIMES BY MOUTH A DAY FOR 3 A DAY FOR 3 THREE DAYS. DAYS. TIMES A DAY FOR 3 DAYS. alprazolam alprazolam No alprazolam [place] 0.25 mg 0.25 mg 0.25 mg Commun i tablet TAKE tablet TAKE tablet ty ONE (1) ONE (1) TAKE ONE Hospi ta TABLET(S) TABLET(S) (1) l BY MOUTH BY MOUTH TABLET(S) Cl inics ONCE A DAY ONCE A DAY BY MOUTH NEEDED. NEEDED. ONCE A DAY NEEDED. azithromyci azithromyci No azithromyc [place] n 500 mg n 500 mg in 500 mg [facility] tablet TAKE tablet TAKE tablet ty ONE (1) ONE (1) TAKE ONE Hospi ta TABLET(S) TABLET(S) (1) l BY MOUTH BY MOUTH TABLET(S) Cl inics ONCE A DAY ONCE A DAY BY MOUTH FOR 7 DAYS. FOR 7 DAYS. ONCE A DAY FOR 7 DAYS. baclofen 10 baclofen 10 No baclofen [place] mg tablet mg tablet 10 mg Comm uni TAKE ONE TAKE ONE tablet ty (1) (1) TAKE ONE Hospita TABLET(S) TABLET(S) (1) l BY MOUTH BY MOUTH TABLET(S) Cl inics FOUR TIMES FOUR TIMES BY MOUTH A DAY. A DAY. FOUR TIMES A DAY. buprenorphi buprenorphi No buprenorph [place] ne 8 ne 8 ine 8 Communi mg-naloxone mg-naloxone mg-naloxon ty 2 mg 2 mg e 2 mg Hospita sublingual sublingual sublingual l film TAKE film TAKE film TAKE Clinics ONE (1) ONE (1) ONE (1) FILM TWICE FILM TWICE FILM TWICE A DAY FOR A DAY FOR A DAY FOR 28 DAY(S). 28 DAY(S). 28 DAY(S). cholecalcif cholecalcif No cholecalci [place] aziza aziza ferol [facility] (vitamin (vitamin (vitamin ty D3) 1,250 D3) 1,250 D3) 1,250 [facility] mcg (50,000 mcg (50,000 mcg l unit) unit) (50,000 Clinics capsule capsule unit) TAKE ONE TAKE ONE capsule (1) (1) TAKE ONE CAPSULE(S) CAPSULE(S) (1) BY MOUTH BY MOUTH CAPSULE(S) EVERY WEEK EVERY WEEK BY MOUTH EVERY WEEK DIRECTED. DIRECTED. DIRECTED. duloxetine duloxetine No duloxetine [place] 40 mg 40 mg 40 mg [facility] capsule,del capsule,del capsule,de ty ayed ayed layed [facility]osp[facility] release release release l TAKE ONE TAKE ONE TAKE ONE Cli nics (1) (1) (1) CAPSULE(S) CAPSULE(S) CAPSULE(S) BY MOUTH BY MOUTH BY MOUTH EVERY DAY EVERY DAY EVERY DAY DIRECTED. DIRECTED. DIRECTED. Elmiron 100 Elmiron 100 No Elmiron [place] mg capsule mg capsule 100 mg [facility] TAKE ONE TAKE ONE capsule ty (1) CAPSULE (1) CAPSULE TAKE ONE [facility] ON AN EMPTY ON AN EMPTY (1) l STOMACH STOMACH CAPSULE ON Cli nics THREE TIMES THREE TIMES AN EMPTY A DAY. A DAY. STOMACH THREE TIMES A DAY. Medrol Medrol No 1dose Medrol [place] (Kevin) 4 mg (Kevin) 4 mg pk(s) (Kevin) 4 mg [facility] tablets in tablets in tablets in ty a dose pack a dose pack a dose [facility]osp[facility] Take 1 dose Take 1 dose pack Take l pk by oral pk by oral 1 dose pk Clinics route as route as by oral directed directed route as for 6 days. for 6 days. directed for 6 days. pantoprazol pantoprazol No pantoprazo [place] e 40 mg e 40 mg le 40 mg [facility] tablet,mu tablet,mu tablet,del ty yed release yed release ayed [facility] TAKE ONE TAKE ONE release l (1) (1) TAKE ONE Clinics TABLET(S) TABLET(S) (1) BY MOUTH BY MOUTH TABLET(S) ONCE A DAY ONCE A DAY BY MOUTH IN THE IN THE ONCE A DAY MORNING. MORNING. IN THE MORNING. phenazopyri phenazopyri No phenazopyr [place] dine 200 mg dine 200 mg idine 200 [facility] tablet TAKE tablet TAKE mg tablet ty ONE (1) ONE (1) TAKE ONE [facility] ta TABLET(S) TABLET(S) (1) l BY MOUTH BY MOUTH TABLET(S) Cl inics THREE TIMES THREE TIMES BY MOUTH A DAY FOR 3 A DAY FOR 3 THREE DAYS. DAYS. TIMES A DAY FOR 3 DAYS. Solu-Medrol Solu-Medrol No Solu-Medro [place] (PF) 125 (PF) 125 l (PF) 125 [facility] mg/2 mL mg/2 mL mg/2 mL ty solution solution solution [facility] for for for l injection injection injection Clinics Take Take Take solu-medrol solu-medrol solu-medro 125mg IM x1 125mg IM x1 l 125mg IM today today x1 today alprazolam alprazolam No alprazolam [place] 0.25 mg 0.25 mg 0.25 mg [facility] tablet TAKE tablet TAKE tablet ty ONE (1) ONE (1) TAKE ONE [facility] ta TABLET(S) TABLET(S) (1) l BY MOUTH BY MOUTH TABLET(S) Cl inics ONCE A DAY ONCE A DAY BY MOUTH NEEDED. NEEDED. ONCE A DAY NEEDED. baclofen 10 baclofen 10 No baclofen [place] mg tablet mg tablet 10 mg [facility] TAKE ONE TAKE ONE tablet ty (1) (1) TAKE ONE [facility]osp[facility] TABLET(S) TABLET(S) (1) l BY MOUTH BY MOUTH TABLET(S) Cl inics FOUR TIMES FOUR TIMES BY MOUTH A DAY. A DAY. FOUR TIMES A DAY. buprenorphi buprenorphi No buprenorph [place] ne 8 ne 8 ine 8 [facility] mg-naloxone mg-naloxone mg-naloxon ty 2 mg 2 mg e 2 mg [facility] sublingual sublingual sublingual l film film film Clinics DISSOLVE DISSOLVE DISSOLVE ONE (1) ONE (1) ONE (1) FILM BY FILM BY FILM BY MOUTH TWICE MOUTH TWICE MOUTH A DAY. A DAY. TWICE A DAY. cholecalcif cholecalcif No cholecalci [place] aziza aziza ferol [facility] (vitamin (vitamin (vitamin ty D3) 1,250 D3) 1,250 D3) 1,250 [facility] mcg (50,000 mcg (50,000 mcg l unit) unit) (50,000 Clinics capsule capsule unit) TAKE ONE TAKE ONE capsule (1) (1) TAKE ONE CAPSULE(S) CAPSULE(S) (1) BY MOUTH BY MOUTH CAPSULE(S) EVERY WEEK EVERY WEEK BY MOUTH EVERY WEEK DIRECTED. DIRECTED. DIRECTED. duloxetine duloxetine No duloxetine [place] 40 mg 40 mg 40 mg [facility] capsule,del capsule,del capsule,de ty ayed ayed layed [facility] release release release l TAKE ONE TAKE ONE TAKE ONE Cli nics (1) (1) (1) CAPSULE(S) CAPSULE(S) CAPSULE(S) BY MOUTH BY MOUTH BY MOUTH EVERY DAY EVERY DAY EVERY DAY DIRECTED. DIRECTED. DIRECTED. Elmiron 100 Elmiron 100 No Elmiron [place] mg capsule mg capsule 100 mg [facility] TAKE ONE TAKE ONE capsule ty (1) CAPSULE (1) CAPSULE TAKE ONE [facility] ON AN EMPTY ON AN EMPTY (1) l STOMACH STOMACH CAPSULE ON Cli nics THREE TIMES THREE TIMES AN EMPTY A DAY. A DAY. STOMACH THREE TIMES A DAY. pantoprazol pantoprazol No pantoprazo [place] e 40 mg e 40 mg le 40 mg [facility] tablet,mu tablet,mu tablet,del ty yed release yed release ayed [facility] TAKE ONE TAKE ONE release l (1) (1) TAKE ONE Clinics TABLET(S) TABLET(S) (1) BY MOUTH BY MOUTH TABLET(S) ONCE A DAY ONCE A DAY BY MOUTH IN THE IN THE ONCE A DAY MORNING. MORNING. IN THE MORNING. phenazopyri phenazopyri No phenazopyr [place] dine 200 mg dine 200 mg idine 200 [facility] tablet TAKE tablet TAKE mg tablet ty ONE (1) ONE (1) TAKE ONE [facility] ta TABLET(S) TABLET(S) (1) l BY MOUTH BY MOUTH TABLET(S) Cl inics THREE TIMES THREE TIMES BY MOUTH A DAY FOR 3 A DAY FOR 3 THREE DAYS. DAYS. TIMES A DAY FOR 3 DAYS. alprazolam alprazolam No alprazolam [place] 0.25 mg 0.25 mg 0.25 mg [facility] tablet TAKE tablet TAKE tablet ty ONE (1) ONE (1) TAKE ONE [facility] ta TABLET(S) TABLET(S) (1) l BY MOUTH BY MOUTH TABLET(S) Cl inics ONCE A DAY ONCE A DAY BY MOUTH NEEDED. NEEDED. ONCE A DAY NEEDED. baclofen 10 baclofen 10 No baclofen [place] mg tablet mg tablet 10 mg [facility] TAKE ONE TAKE ONE tablet ty (1) (1) TAKE ONE [facility] TABLET(S) TABLET(S) (1) l BY MOUTH BY MOUTH TABLET(S) Cl inics FOUR TIMES FOUR TIMES BY MOUTH A DAY. A DAY. FOUR TIMES A DAY. buprenorphi buprenorphi No buprenorph [place] ne 8 ne 8 ine 8 [facility] mg-naloxone mg-naloxone mg-naloxon ty 2 mg 2 mg e 2 mg [facility] sublingual sublingual sublingual l film film film Clinics DISSOLVE DISSOLVE DISSOLVE ONE (1) ONE (1) ONE (1) FILM BY FILM BY FILM BY MOUTH TWICE MOUTH TWICE MOUTH A DAY. A DAY. TWICE A DAY. buspirone buspirone No 1 BID buspirone [place] 7.5 mg 7.5 mg 7.5 mg [facility] tablet Take tablet Take tablet ty 1 tablet 1 tablet Take 1 [facility] ta twice a day twice a day tablet l by oral by oral twice a Clinic s route as route as day by directed directed oral route for 30 for 30 as days. days. directed for 30 days. cholecalcif cholecalcif No cholecalci [place] aziza aziza ferol [facility] (vitamin (vitamin (vitamin ty D3) 1,250 D3) 1,250 D3) 1,250 [facility] mcg (50,000 mcg (50,000 mcg l unit) unit) (50,000 Clinics capsule capsule unit) TAKE ONE TAKE ONE capsule (1) (1) TAKE ONE CAPSULE(S) CAPSULE(S) (1) BY MOUTH BY MOUTH CAPSULE(S) EVERY WEEK EVERY WEEK BY MOUTH EVERY WEEK DIRECTED. DIRECTED. DIRECTED. duloxetine duloxetine No duloxetine [place] 40 mg 40 mg 40 mg [facility] capsule,del capsule,del capsule,de ty ayed ayed layed [facility] release release release l TAKE ONE TAKE ONE TAKE ONE Cli nics (1) (1) (1) CAPSULE(S) CAPSULE(S) CAPSULE(S) BY MOUTH BY MOUTH BY MOUTH EVERY DAY EVERY DAY EVERY DAY DIRECTED. DIRECTED. DIRECTED. Elmiron 100 Elmiron 100 No Elmiron [place] mg capsule mg capsule 100 mg [facility] TAKE ONE TAKE ONE capsule ty (1) CAPSULE (1) CAPSULE TAKE ONE [facility] ON AN EMPTY ON AN EMPTY (1) l STOMACH STOMACH CAPSULE ON Cli nics THREE TIMES THREE TIMES AN EMPTY A DAY. A DAY. STOMACH THREE TIMES A DAY. pantoprazol pantoprazol No pantoprazo [place] e 40 mg e 40 mg le 40 mg [facility] tablet,mu tablet,mu tablet,del ty yed release yed release ayed [facility] TAKE ONE TAKE ONE release l (1) (1) TAKE ONE Clinics TABLET(S) TABLET(S) (1) BY MOUTH BY MOUTH TABLET(S) ONCE A DAY ONCE A DAY BY MOUTH IN THE IN THE ONCE A DAY MORNING. MORNING. IN THE MORNING. phenazopyri phenazopyri No phenazopyr [place] dine 200 mg dine 200 mg idine 200 [facility] tablet TAKE tablet TAKE mg tablet ty ONE (1) ONE (1) TAKE ONE [facility] ta TABLET(S) TABLET(S) (1) l BY MOUTH BY MOUTH TABLET(S) Cl inics THREE TIMES THREE TIMES BY MOUTH A DAY FOR 3 A DAY FOR 3 THREE DAYS. DAYS. TIMES A DAY FOR 3 DAYS. alprazolam alprazolam No 1 Q1D alprazolam [place] 0.25 mg 0.25 mg 0.25 mg [facility] tablet Take tablet Take tablet ty 1 tablet 1 tablet Take 1 [facility] ta every day every day tablet l by oral by oral every day Clin ics route as route as by oral needed for needed for route as 30 days. 30 days. needed for 30 days. buprenorphi buprenorphi No buprenorph [place] ne 8 ne 8 ine 8 [facility] mg-naloxone mg-naloxone mg-naloxon ty 2 mg 2 mg e 2 mg [facility] sublingual sublingual sublingual l film film film Clinics DISSOLVE DISSOLVE DISSOLVE ONE (1) ONE (1) ONE (1) FILM TWICE FILM TWICE FILM TWICE A DAY FOR A DAY FOR A DAY FOR 28 DAY(S). 28 DAY(S). 28 DAY(S). cyclobenzap cyclobenzap No cyclobenza [place] rine 10 mg rine 10 mg mikayla 10 [facility] tablet TAKE tablet TAKE mg tablet ty ONE (1) ONE (1) TAKE ONE [facility] ta TABLET BY TABLET BY (1) TABLET l MOUTH THREE MOUTH THREE BY MOUTH Clinics TIMES A DAY TIMES A DAY THREE FOR 28 FOR 28 TIMES A DAY(S). DAY(S). DAY FOR 28 DAY(S). duloxetine duloxetine No duloxetine [place] 40 mg 40 mg 40 mg [facility] capsule,del capsule,del capsule,de ty ayed ayed layed [facility] release release release l TAKE ONE TAKE ONE TAKE ONE Cli nics (1) (1) (1) CAPSULE(S) CAPSULE(S) CAPSULE(S) BY MOUTH BY MOUTH BY MOUTH EVERY DAY EVERY DAY EVERY DAY DIRECTED. DIRECTED. DIRECTED. pantoprazol pantoprazol No pantoprazo [place] e 40 mg e 40 mg le 40 mg [facility] tablet,mu tablet,mu tablet,del ty yed release yed release ayed [facility] TAKE ONE TAKE ONE release l (1) (1) TAKE ONE Clinics TABLET(S) TABLET(S) (1) BY MOUTH BY MOUTH TABLET(S) ONCE A DAY ONCE A DAY BY MOUTH IN THE IN THE ONCE A DAY MORNING. MORNING. IN THE MORNING. alprazolam alprazolam No alprazolam [place] 0.25 mg 0.25 mg 0.25 mg [facility] tablet TAKE tablet TAKE tablet ty ONE (1) ONE (1) TAKE ONE [facility] TABLET(S) TABLET(S) (1) l BY MOUTH BY MOUTH TABLET(S) Cl inics ONCE A DAY ONCE A DAY BY MOUTH NEEDED. NEEDED. ONCE A DAY NEEDED. buprenorphi buprenorphi No buprenorph [place] ne 8 ne 8 ine 8 [facility] mg-naloxone mg-naloxone mg-naloxon ty 2 mg 2 mg e 2 mg [facility] sublingual sublingual sublingual l film TAKE film TAKE film TAKE Clinics ONE (1) ONE (1) ONE (1) FILM TWICE FILM TWICE FILM TWICE A DAY BY A DAY BY A DAY BY MOUTH. MOUTH. MOUTH. clonazepam clonazepam No clonazepam [place] 0.5 mg 0.5 mg 0.5 mg [facility] tablet TAKE tablet TAKE tablet ty 0.5 TABLETS 0.5 TABLETS TAKE 0.5 [facility] BY MOUTH BY MOUTH TABLETS BY l DAILY DAILY MOUTH Clinic s NEEDED FOR NEEDED FOR DAILY ANXIETY. ANXIETY. NEEDED FOR ANXIETY. cyclobenzap cyclobenzap No cyclobenza [place] rine 10 mg rine 10 mg mikayla 10 [facility] tablet TAKE tablet TAKE mg tablet ty ONE (1) ONE (1) TAKE ONE [facility] TABLET(S) TABLET(S) (1) l BY MOUTH BY MOUTH TABLET(S) Cl inics THREE TIMES THREE TIMES BY MOUTH A DAY. A DAY. THREE TIMES A DAY. duloxetine duloxetine No duloxetine [place] 40 mg 40 mg 40 mg [facility] capsule,del capsule,del capsule,de ty ayed ayed layed [facility] release release release l TAKE ONE TAKE ONE TAKE ONE Cli nics (1) (1) (1) CAPSULE(S) CAPSULE(S) CAPSULE(S) BY MOUTH BY MOUTH BY MOUTH EVERY DAY EVERY DAY EVERY DAY DIRECTED. DIRECTED. DIRECTED. fluoxetine fluoxetine No fluoxetine [place] 20 mg 20 mg 20 mg [facility] capsule capsule capsule ty TAKE ONE TAKE ONE TAKE ONE [facility] (1) (1) (1) l CAPSULE(S) CAPSULE(S) CAPSULE(S) Clinics BY MOUTH BY MOUTH BY MOUTH ONCE A DAY. ONCE A DAY. ONCE A DAY. mirtazapine mirtazapine No mirtazapin [place] 7.5 mg 7.5 mg e 7.5 mg [facility] tablet TAKE tablet TAKE tablet ty ONE (1) ONE (1) TAKE ONE [facility] TABLET(S) TABLET(S) (1) l BY MOUTH BY MOUTH TABLET(S) Cl inics ONCE EVERY ONCE EVERY BY MOUTH NIGHT AT NIGHT AT ONCE EVERY BEDTIME. BEDTIME. NIGHT AT BEDTIME. pantoprazol pantoprazol No pantoprazo [place] e 40 mg e 40 mg le 40 mg [facility] tablet,mu tablet,mu tablet,del ty yed release yed release ayed [facility] TAKE ONE TAKE ONE release l (1) (1) TAKE ONE Clinics TABLET(S) TABLET(S) (1) BY MOUTH BY MOUTH TABLET(S) ONCE A DAY ONCE A DAY BY MOUTH IN THE IN THE ONCE A DAY MORNING. MORNING. IN THE MORNING. spironolact spironolact No 1 Q1D spironolac [place] one 25 mg one 25 mg tone 25 mg [facility] tablet Take tablet Take tablet ty 1 tablet 1 tablet Take 1 [facility] ta every day every day tablet l by oral by oral every day Clin ics route in route in by oral the morning the morning route in for 30 for 30 the days. days. morning for 30 days. buprenorphi buprenorphi No buprenorph [place] ne 8 ne 8 ine 8 [facility] mg-naloxone mg-naloxone mg-naloxon ty 2 mg 2 mg e 2 mg [facility] sublingual sublingual sublingual l film TAKE film TAKE film TAKE Clinics ONE (1) ONE (1) ONE (1) FILM TWICE FILM TWICE FILM TWICE A DAY FOR A DAY FOR A DAY FOR 28 DAY(S). 28 DAY(S). 28 DAY(S). clonazepam clonazepam No clonazepam [place] 0.5 mg 0.5 mg 0.5 mg [facility] tablet TAKE tablet TAKE tablet ty ONE TABLET ONE TABLET TAKE ONE [facility] BY MOUTH BY MOUTH TABLET BY l ONCE A DAY ONCE A DAY MOUTH ONCE Clinics NEEDED NEEDED A DAY FOR FOR NEEDED FOR ANXIETY. ANXIETY. ANXIETY. cyclobenzap cyclobenzap No cyclobenza [place] rine 10 mg rine 10 mg mikayla 10 [facility] tablet TAKE tablet TAKE mg tablet ty ONE (1) ONE (1) TAKE ONE [facility] TABLET(S) TABLET(S) (1) l BY MOUTH BY MOUTH TABLET(S) Cl inics THREE TIMES THREE TIMES BY MOUTH A DAY. A DAY. THREE TIMES A DAY. fluoxetine fluoxetine No fluoxetine [place] 40 mg 40 mg 40 mg [facility] capsule capsule capsule ty TAKE ONE TAKE ONE TAKE ONE [facility] (1) (1) (1) l CAPSULE(S) CAPSULE(S) CAPSULE(S) Clinics BY MOUTH BY MOUTH BY MOUTH ONCE A DAY. ONCE A DAY. ONCE A DAY. mirtazapine mirtazapine No mirtazapin [place] 7.5 mg 7.5 mg e 7.5 mg [facility] tablet TAKE tablet TAKE tablet ty ONE (1) ONE (1) TAKE ONE [facility] TABLET(S) TABLET(S) (1) l BY MOUTH BY MOUTH TABLET(S) Cl inics EVERY NIGHT EVERY NIGHT BY MOUTH AT BEDTIME. AT BEDTIME. EVERY NIGHT AT BEDTIME. buprenorphi buprenorphi No buprenorph [place] ne 8 ne 8 ine 8 [facility] mg-naloxone mg-naloxone mg-naloxon ty 2 mg 2 mg e 2 mg [facility] sublingual sublingual sublingual l film TAKE film TAKE film TAKE Clinics ONE (1) ONE (1) ONE (1) FILM TWICE FILM TWICE FILM TWICE A DAY FOR A DAY FOR A DAY FOR 28 DAYS. 28 DAYS. 28 DAYS. clonazepam clonazepam No clonazepam [place] 0.5 mg 0.5 mg 0.5 mg [facility] tablet TAKE tablet TAKE tablet ty ONE (1) ONE (1) TAKE ONE [facility] TABLET(S) TABLET(S) (1) l BY MOUTH BY MOUTH TABLET(S) Cl inics TWICE A DAY TWICE A DAY BY MOUTH NEEDED. NEEDED. TWICE A DAY NEEDED. cyclobenzap cyclobenzap No cyclobenza [place] rine 10 mg rine 10 mg mikayla 10 [facility] tablet TAKE tablet TAKE mg tablet ty ONE (1) ONE (1) TAKE ONE [facility] TABLET(S) TABLET(S) (1) l BY MOUTH BY MOUTH TABLET(S) Cl inics THREE TIMES THREE TIMES BY MOUTH A DAY FOR A DAY FOR THREE 28 DAYS. 28 DAYS. TIMES A DAY FOR 28 DAYS. divalproex divalproex No divalproex [place] ER 500 mg ER 500 mg ER 500 mg [facility] tablet,exte tablet,exte tablet,ext ty nded nded ended [facility] release 24 release 24 release 24 l hr TAKE ONE hr TAKE ONE hr TAKE Clinics (1) (1) ONE (1) TABLET(S) TABLET(S) TABLET(S) BY MOUTH BY MOUTH BY MOUTH ONCE A DAY ONCE A DAY ONCE A DAY AT BEDTIME. AT BEDTIME. AT BEDTIME. furosemide furosemide No furosemide [place] 20 mg 20 mg 20 mg [facility] tablet TAKE tablet TAKE tablet ty ONE-HALF 1 ONE-HALF 1 TAKE [facility] TABLET(S) TABLET(S) ONE-HALF 1 l BY MOUTH BY MOUTH TABLET(S) Cl inics EVERY EVERY BY MOUTH MORNING. MORNING. EVERY MORNING. hydroxyzine hydroxyzine No hydroxyzin [place] HCl 25 mg HCl 25 mg e HCl 25 [facility] tablet TAKE tablet TAKE mg tablet ty ONE (1) ONE (1) TAKE ONE [facility] TABLET BY TABLET BY (1) TABLET l MOUTH 3 MOUTH 3 BY MOUTH 3 Cli nics TIMES DAILY TIMES DAILY TIMES NEEDED NEEDED DAILY FOR ITCHING FOR ITCHING NEEDED FOR OR ANXIETY. OR ANXIETY. ITCHING OR ANXIETY. venlafaxine venlafaxine No venlafaxin [place] ER 150 mg ER 150 mg e ER 150 [facility] capsule,ext capsule,ext mg t y ended ended capsule,ex [facility] release 24 release 24 tended l hr TAKE ONE hr TAKE ONE release 24 Clinics (1) (1) hr TAKE CAPSULE(S) CAPSULE(S) ONE (1) BY MOUTH BY MOUTH CAPSULE(S) ONCE A DAY. ONCE A DAY. BY MOUTH ONCE A DAY. acetylcyste acetylcyste No 2capsul Q1D acetylcyst [place] ine 600 mg ine 600 mg e(s) eine 600 [facility] capsule capsule mg capsule ty Take 2 Take 2 Take 2 [facility] capsules capsules capsules l every day every day every day Clinics by oral by oral by oral route. route. route. azithromyci azithromyci No 1 Q1D azithromyc [place] n 500 mg n 500 mg in 500 mg [facility] tablet Take tablet Take tablet ty 1 tablet 1 tablet Take 1 [facility] every day every day tablet l by oral by oral every day Clin ics route for 5 route for 5 by oral days. days. route for 5 days. buprenorphi buprenorphi No buprenorph [place] ne 8 ne 8 ine 8 [facility] mg-naloxone mg-naloxone mg-naloxon ty 2 mg 2 mg e 2 mg [facility] sublingual sublingual sublingual l film TAKE film TAKE film TAKE Clinics ONE (1) ONE (1) ONE (1) FILM TWICE FILM TWICE FILM TWICE A DAY FOR A DAY FOR A DAY FOR 28 DAYS. 28 DAYS. 28 DAYS. clonazepam clonazepam No clonazepam [place] 0.5 mg 0.5 mg 0.5 mg [facility] tablet TAKE tablet TAKE tablet ty ONE (1) ONE (1) TAKE ONE [facility] TABLET(S) TABLET(S) (1) l BY MOUTH BY MOUTH TABLET(S) Cl inics TWICE A DAY TWICE A DAY BY MOUTH NEEDED. NEEDED. TWICE A DAY NEEDED. clotrimazol clotrimazol No 1 5xD clotrimazo [place] e 10 mg e 10 mg le 10 mg [facility] marta Take marta Take marta ty 1 tablet 5 1 tablet 5 Take 1 [facility] times a day times a day tablet 5 l by oral by oral times a Clinic s route for route for day by 14 days. 14 days. oral route for 14 days. cyclobenzap cyclobenzap No cyclobenza [place] rine 10 mg rine 10 mg mikayla 10 [facility] tablet TAKE tablet TAKE mg tablet ty ONE (1) ONE (1) TAKE ONE [facility] TABLET(S) TABLET(S) (1) l BY MOUTH BY MOUTH TABLET(S) Cl inics THREE TIMES THREE TIMES BY MOUTH A DAY FOR A DAY FOR THREE 28 DAYS. 28 DAYS. TIMES A DAY FOR 28 DAYS. divalproex divalproex No divalproex [place] ER 500 mg ER 500 mg ER 500 mg [facility] tablet,exte tablet,exte tablet,ext ty nded nded ended [facility] release 24 release 24 release 24 l hr TAKE ONE hr TAKE ONE hr TAKE Clinics (1) (1) ONE (1) TABLET(S) TABLET(S) TABLET(S) BY MOUTH BY MOUTH BY MOUTH ONCE A DAY ONCE A DAY ONCE A DAY AT BEDTIME. AT BEDTIME. AT BEDTIME. fenofibrate fenofibrate No 1 Q1D fenofibrat [place] nanocrystal nanocrystal e [facility] lized 145 lized 145 nanocrysta ty mg tablet mg tablet llized 145 [facility] Take 1 Take 1 mg tablet l tablet tablet Take 1 Clinics every day every day tablet by oral by oral every day route. route. by oral route. furosemide furosemide No 1 Q1D furosemide [place] 20 mg 20 mg 20 mg [facility] tablet Take tablet Take tablet ty 1 tablet 1 tablet Take 1 [facility] every day every day tablet l by oral by oral every day Clin ics route for route for by oral 90 days. 90 days. route for 90 days. hydroxyzine hydroxyzine No hydroxyzin [place] HCl 25 mg HCl 25 mg e HCl 25 [facility] tablet TAKE tablet TAKE mg tablet ty ONE (1) ONE (1) TAKE ONE [facility] TABLET BY TABLET BY (1) TABLET l MOUTH 3 MOUTH 3 BY MOUTH 3 Cli nics TIMES DAILY TIMES DAILY TIMES NEEDED NEEDED DAILY FOR ITCHING FOR ITCHING NEEDED FOR OR ANXIETY. OR ANXIETY. ITCHING OR ANXIETY. tadalafil tadalafil No 1 Q1D tadalafil [place] 10 mg 10 mg 10 mg [facility] tablet Take tablet Take tablet ty 1 tablet 1 tablet Take 1 [facility] every day every day tablet l by oral by oral every day Clin ics route for route for by oral 30 days. 30 days. route for 30 days. venlafaxine venlafaxine No venlafaxin [place] ER 150 mg ER 150 mg e ER 150 [facility] capsule,ext capsule,ext mg t y ended ended capsule,ex [facility] release 24 release 24 tended l hr TAKE ONE hr TAKE ONE release 24 Clinics (1) (1) hr TAKE CAPSULE(S) CAPSULE(S) ONE (1) BY MOUTH BY MOUTH CAPSULE(S) ONCE A DAY. ONCE A DAY. BY MOUTH ONCE A DAY. acetylcyste acetylcyste No 2capsul Q1D acetylcyst [place] ine 600 mg ine 600 mg e(s) eine 600 [facility] capsule capsule mg capsule ty Take 2 Take 2 Take 2 [facility] capsules capsules capsules l every day every day every day Clinics by oral by oral by oral route. route. route. buprenorphi buprenorphi No buprenorph [place] ne 8 ne 8 ine 8 [facility] mg-naloxone mg-naloxone mg-naloxon ty 2 mg 2 mg e 2 mg [facility] sublingual sublingual sublingual l film TAKE film TAKE film TAKE Clinics ONE (1) ONE (1) ONE (1) FILM TWICE FILM TWICE FILM TWICE A DAY FOR A DAY FOR A DAY FOR 28 DAYS. 28 DAYS. 28 DAYS. clonazepam clonazepam No clonazepam [place] 0.5 mg 0.5 mg 0.5 mg [facility] tablet TAKE tablet TAKE tablet ty ONE (1) ONE (1) TAKE ONE [facility] TABLET(S) TABLET(S) (1) l BY MOUTH BY MOUTH TABLET(S) Cl inics TWICE A DAY TWICE A DAY BY MOUTH NEEDED NEEDED TWICE A FOR FOR DAY BREAKTHROUG BREAKTHROUG NEEDED FOR H ANXIETY. H ANXIETY. BREAKTHROU GH ANXIETY. clotrimazol clotrimazol No clotrimazo [place] e 10 mg e 10 mg le 10 mg [facility] marta TAKE marta TAKE marta ty ONE (1) ONE (1) TAKE ONE [facility] ta TABLET BY TABLET BY (1) TABLET l MOUTH FIVE MOUTH FIVE BY MOUTH Clinics TIMES A DAY TIMES A DAY FIVE TIMES FOR 14 FOR 14 A DAY FOR DAYS. DAYS. 14 DAYS. divalproex divalproex No divalproex [place] ER 500 mg ER 500 mg ER 500 mg [facility] tablet,exte tablet,exte tablet,ext ty nded nded ended [facility] release 24 release 24 release 24 l hr TAKE TWO hr TAKE TWO hr TAKE Clinics (2) (2) TWO (2) TABLET(S) TABLET(S) TABLET(S) BY MOUTH BY MOUTH BY MOUTH ONCE A DAY ONCE A DAY ONCE A DAY AT BEDTIME. AT BEDTIME. AT BEDTIME. escitalopra escitalopra No 1 Q1D escitalopr [place] m 10 mg m 10 mg am 10 mg [facility] tablet Take tablet Take tablet ty 1 tablet 1 tablet Take 1 [facility] every day every day tablet l by oral by oral every day Clin ics route for route for by oral 90 days. 90 days. route for 90 days. fenofibrate fenofibrate No fenofibrat [place] nanocrystal nanocrystal e [facility] lized 145 lized 145 nanocrysta ty mg tablet mg tablet llized 145 [facility] TAKE ONE TAKE ONE mg tablet l (1) (1) TAKE ONE Clinics TABLET(S) TABLET(S) (1) BY MOUTH BY MOUTH TABLET(S) ONCE A DAY. ONCE A DAY. BY MOUTH ONCE A DAY. furosemide furosemide No furosemide [place] 20 mg 20 mg 20 mg [facility] tablet TAKE tablet TAKE tablet ty ONE (1) ONE (1) TAKE ONE [facility] TABLET(S) TABLET(S) (1) l BY MOUTH BY MOUTH TABLET(S) Cl inics ONCE A DAY. ONCE A DAY. BY MOUTH ONCE A DAY. hydroxyzine hydroxyzine No hydroxyzin [place] HCl 25 mg HCl 25 mg e HCl 25 [facility] tablet TAKE tablet TAKE mg tablet ty ONE (1) ONE (1) TAKE ONE [facility] TABLET BY TABLET BY (1) TABLET l MOUTH 3 MOUTH 3 BY MOUTH 3 Cli nics TIMES DAILY TIMES DAILY TIMES NEEDED NEEDED DAILY FOR ITCHING FOR ITCHING NEEDED FOR OR ANXIETY. OR ANXIETY. ITCHING OR ANXIETY. pantoprazol pantoprazol No pantoprazo [place] e 40 mg e 40 mg le 40 mg [facility] tablet,mu tablet,mu tablet,del ty yed release yed release ayed [facility] TAKE ONE TAKE ONE release l (1) (1) TAKE ONE Clinics TABLET(S) TABLET(S) (1) BY MOUTH BY MOUTH TABLET(S) DAILY. DAILY. BY MOUTH DAILY. tadalafil tadalafil No 1 Q1D tadalafil [place] 10 mg 10 mg 10 mg [facility] tablet Take tablet Take tablet ty 1 tablet 1 tablet Take 1 [facility] every day every day tablet l by oral by oral every day Clin ics route for route for by oral 30 days. 30 days. route for 30 days. buprenorphi buprenorphi No buprenorph [place] ne 8 ne 8 ine 8 [facility] mg-naloxone mg-naloxone mg-naloxon ty 2 mg 2 mg e 2 mg [facility] sublingual sublingual sublingual l film TAKE film TAKE film TAKE Clinics ONE (1) ONE (1) ONE (1) FILM TWICE FILM TWICE FILM TWICE A DAY FOR A DAY FOR A DAY FOR 28 DAYS. 28 DAYS. 28 DAYS. buspirone buspirone No buspirone [place] 10 mg 10 mg 10 mg [facility] tablet TAKE tablet TAKE tablet ty TWO (2) TWO (2) TAKE TWO Hospi ta TABLET(S) TABLET(S) (2) l BY MOUTH 2 BY MOUTH 2 TABLET(S) Clinics TIMES A DAY TIMES A DAY BY MOUTH 2 FOR FOR TIMES A ANXIETY. ANXIETY. DAY FOR ANXIETY. clonazepam clonazepam No clonazepam [place] 1 mg tablet 1 mg tablet 1 mg C [facility] TAKE ONE TAKE ONE tablet ty (1) (1) TAKE ONE Hospita TABLET(S) TABLET(S) (1) l BY MOUTH BY MOUTH TABLET(S) Cl inics TWICE A TWICE A BY MOUTH DAY. DAY. TWICE A DAY. divalproex divalproex No divalproex [place] ER 500 mg ER 500 mg ER 500 mg [facility] tablet,exte tablet,exte tablet,ext ty nded nded ended [facility]ospita release 24 release 24 release 24 l hr TAKE TWO hr TAKE TWO hr TAKE Clinics (2) (2) TWO (2) TABLET(S) TABLET(S) TABLET(S) BY MOUTH BY MOUTH BY MOUTH ONCE A DAY ONCE A DAY ONCE A DAY AT BEDTIME. AT BEDTIME. AT BEDTIME. escitalopra escitalopra No escitalopr [place] m 20 mg m 20 mg am 20 mg [facility] tablet TAKE tablet TAKE tablet ty 1&1/2 1&1/2 TAKE 1&1/2 Hospita TABLET(S) TABLET(S) TABLET(S) l BY MOUTH BY MOUTH BY MOUTH Cli nics ONCE A DAY. ONCE A DAY. ONCE A DAY. hydroxyzine hydroxyzine No hydroxyzin [place] HCl 25 mg HCl 25 mg e HCl 25 [facility] tablet TAKE tablet TAKE mg tablet ty ONE (1) ONE (1) TAKE ONE Hospi ta TABLET(S) TABLET(S) (1) l BY MOUTH BY MOUTH TABLET(S) Cl inics THREE TIMES THREE TIMES BY MOUTH A DAY A DAY THREE NEEDED FOR NEEDED FOR TIMES A ITCHING OR ITCHING OR DAY ANXIETY. ANXIETY. NEEDED FOR ITCHING OR ANXIETY. prazosin 1 prazosin 1 No prazosin 1 [place] mg capsule mg capsule mg capsule [facility] TAKE ONE TAKE ONE TAKE ONE ty (1) (1) (1) Hospita CAPSULE(S) CAPSULE(S) CAPSULE(S) l BY MOUTH BY MOUTH BY MOUTH Cli nics ONCE A DAY ONCE A DAY ONCE A DAY AT BEDTIME. AT BEDTIME. AT BEDTIME. ProAir HFA ProAir HFA No ProAir HFA [place] 90 90 90 [facility] mcg/actuati mcg/actuati mcg/actuat ty on aerosol on aerosol ion [facility] inhaler inhaler aerosol l INHALE TWO INHALE TWO inhaler Clinics (2) PUFF(S) (2) PUFF(S) INHALE TWO BY MOUTH BY MOUTH (2) EVERY FOUR EVERY FOUR PUFF(S) BY TO SIX TO SIX MOUTH HOURS HOURS EVERY FOUR NEEDED. NEEDED. TO SIX HOURS NEEDED. quetiapine quetiapine No quetiapine [place] 25 mg 25 mg 25 mg [facility] tablet TAKE tablet TAKE tablet ty ONE (1) TO ONE (1) TO TAKE ONE Hospita TWO (2) TWO (2) (1) TO TWO l TABLET(S) TABLET(S) (2) Clini cs BY MOUTH AT BY MOUTH AT TABLET(S) BEDTIME BEDTIME BY MOUTH NEEDED FOR NEEDED FOR AT BEDTIME SLEEP. SLEEP. NEEDED FOR SLEEP. Singulair Singulair No 1 Q1D Singulair [place] 10 mg 10 mg 10 mg [facility] tablet Take tablet Take tablet ty 1 tablet 1 tablet Take 1 Hospi ta every day every day tablet l by oral by oral every day Clin ics route for route for by oral 14 days. 14 days. route for 14 days. Zithromax Zithromax No Zithromax [place] Z-Kevin 250 Z-Kevin 250 Z-Kevin 250 [facility] mg tablet mg tablet mg tablet ty TAKE 2 TAKE 2 TAKE 2 Hospita TABLETS TABLETS TABLETS l (500 MG) BY (500 MG) BY (500 MG) Clinics ORAL ROUTE ORAL ROUTE BY ORAL ONCE DAILY ONCE DAILY ROUTE ONCE FOR 1 DAY FOR 1 DAY DAILY FOR THEN 1 THEN 1 1 DAY THEN TABLET (250 TABLET (250 1 TABLET MG) BY ORAL MG) BY ORAL (250 MG) ROUTE ONCE ROUTE ONCE BY ORAL DAILY FOR 4 DAILY FOR 4 ROUTE ONCE DAYS DAYS DAILY FOR 4 DAYS albuterol albuterol No 3mL TID albuterol [place] sulfate 2.5 sulfate 2.5 sulfate [facility] mg/3 mL mg/3 mL 2.5 mg/3 ty (0.083 %) (0.083 %) mL (0.083 Hospita solution solution %) l for for solution Clinics nebulizatio nebulizatio for n Inhale 3 n Inhale 3 nebulizati mL 3 times mL 3 times on Inhale a day by a day by 3 mL 3 nebulizatio nebulizatio times a n route as n route as day by needed. needed. nebulizati on route as needed. buprenorphi buprenorphi No buprenorph [place] ne 8 ne 8 ine 8 [facility] mg-naloxone mg-naloxone mg-naloxon ty 2 mg 2 mg e 2 mg Hospita sublingual sublingual sublingual l film TAKE film TAKE film TAKE Clinics ONE (1) ONE (1) ONE (1) FILM TWICE FILM TWICE FILM TWICE A DAY FOR A DAY FOR A DAY FOR 28 DAYS. 28 DAYS. 28 DAYS. buspirone buspirone No buspirone [place] 10 mg 10 mg 10 mg [facility] tablet TAKE tablet TAKE tablet ty TWO (2) TWO (2) TAKE TWO Hospi ta TABLET(S) TABLET(S) (2) l BY MOUTH BY MOUTH TABLET(S) Cl inics TWICE A TWICE A BY MOUTH DAY. DAY. TWICE A DAY. clonazepam clonazepam No clonazepam [place] 1 mg tablet 1 mg tablet 1 mg [facility] TAKE ONE TAKE ONE tablet ty (1) (1) TAKE ONE Hospita TABLET(S) TABLET(S) (1) l BY MOUTH BY MOUTH TABLET(S) Cl inics TWICE A TWICE A BY MOUTH DAY. DAY. TWICE A DAY. divalproex divalproex No divalproex [place] ER 500 mg ER 500 mg ER 500 mg [facility] tablet,exte tablet,exte tablet,ext ty nded nded ended Hospita release 24 release 24 release 24 l hr TAKE TWO hr TAKE TWO hr TAKE Clinics (2) (2) TWO (2) TABLET(S) TABLET(S) TABLET(S) BY MOUTH BY MOUTH BY MOUTH ONCE A DAY ONCE A DAY ONCE A DAY AT BEDTIME. AT BEDTIME. AT BEDTIME. escitalopra escitalopra No escitalopr [place] m 20 mg m 20 mg am 20 mg [facility] tablet TAKE tablet TAKE tablet ty ONE AND ONE AND TAKE ONE Hospi ta ONE-HALF (1 ONE-HALF (1 AND l AND 1/2) AND 1/2) ONE-HALF Cli nics TABLET(S) TABLET(S) (1 AND BY MOUTH BY MOUTH 1/2) DAILY. DAILY. TABLET(S) BY MOUTH DAILY. ProAir HFA ProAir HFA No ProAir HFA [place] 90 90 90 [facility] mcg/actuati mcg/actuati mcg/actuat ty on aerosol on aerosol ion [facility] inhaler inhaler aerosol l INHALE TWO INHALE TWO inhaler Clinics (2) PUFF(S) (2) PUFF(S) INHALE TWO BY MOUTH BY MOUTH (2) EVERY FOUR EVERY FOUR PUFF(S) BY TO SIX TO SIX MOUTH HOURS HOURS EVERY FOUR NEEDED. NEEDED. TO SIX HOURS NEEDED. quetiapine quetiapine No quetiapine [place] 25 mg 25 mg 25 mg [facility] tablet TAKE tablet TAKE tablet ty ONE (1) ONE (1) TAKE ONE Hospi ta TABLET(S) TABLET(S) (1) l BY MOUTH AT BY MOUTH AT TABLET(S) Clinics BEDTIME BEDTIME BY MOUTH NEEDED. NEEDED. AT BEDTIME NEEDED. albuterol albuterol No 3mL TID albuterol [place] sulfate 2.5 sulfate 2.5 sulfate [facility] mg/3 mL mg/3 mL 2.5 mg/3 ty (0.083 %) (0.083 %) mL (0.083 Hospita solution solution %) l for for solution Clinics nebulizatio nebulizatio for n Inhale 3 n Inhale 3 nebulizati mL 3 times mL 3 times on Inhale a day by a day by 3 mL 3 nebulizatio nebulizatio times a n route as n route as day by needed. needed. nebulizati on route as needed. buprenorphi buprenorphi No buprenorph [place] ne 8 ne 8 ine 8 [facility] mg-naloxone mg-naloxone mg-naloxon ty 2 mg 2 mg e 2 mg Hospita sublingual sublingual sublingual l film TAKE film TAKE film TAKE Clinics ONE (1) ONE (1) ONE (1) FILM TWICE FILM TWICE FILM TWICE A DAY FOR A DAY FOR A DAY FOR 28 DAYS. 28 DAYS. 28 DAYS. buspirone buspirone No buspirone [place] 10 mg 10 mg 10 mg [facility] tablet TAKE tablet TAKE tablet ty TWO (2) TWO (2) TAKE TWO Hospi ta TABLET(S) TABLET(S) (2) l BY MOUTH BY MOUTH TABLET(S) Cl inics TWICE A TWICE A BY MOUTH DAY. DAY. TWICE A DAY. clonazepam clonazepam No clonazepam [place] 1 mg tablet 1 mg tablet 1 mg [facility] TAKE ONE TAKE ONE tablet ty (1) (1) TAKE ONE Hospita TABLET(S) TABLET(S) (1) l BY MOUTH BY MOUTH TABLET(S) Cl inics TWICE A TWICE A BY MOUTH DAY. DAY. TWICE A DAY. divalproex divalproex No divalproex [place] ER 500 mg ER 500 mg ER 500 mg [facility] tablet,exte tablet,exte tablet,ext ty nded nded ended Hospita release 24 release 24 release 24 l hr TAKE TWO hr TAKE TWO hr TAKE Clinics (2) (2) TWO (2) TABLET(S) TABLET(S) TABLET(S) BY MOUTH BY MOUTH BY MOUTH ONCE A DAY ONCE A DAY ONCE A DAY AT BEDTIME. AT BEDTIME. AT BEDTIME. escitalopra escitalopra No escitalopr [place] m 20 mg m 20 mg am 20 mg [facility] tablet TAKE tablet TAKE tablet ty ONE AND ONE AND TAKE ONE Hospi ta ONE-HALF (1 ONE-HALF (1 AND l AND 1/2) AND 1/2) ONE-HALF Cli nics TABLET(S) TABLET(S) (1 AND BY MOUTH BY MOUTH 1/2) DAILY. DAILY. TABLET(S) BY MOUTH DAILY. ProAir HFA ProAir HFA No ProAir HFA [place] 90 90 90 [facility] mcg/actuati mcg/actuati mcg/actuat ty on aerosol on aerosol ion [facility] inhaler inhaler aerosol l INHALE TWO INHALE TWO inhaler Clinics (2) PUFF(S) (2) PUFF(S) INHALE TWO BY MOUTH BY MOUTH (2) EVERY FOUR EVERY FOUR PUFF(S) BY TO SIX TO SIX MOUTH HOURS HOURS EVERY FOUR NEEDED. NEEDED. TO SIX HOURS NEEDED. quetiapine quetiapine No quetiapine [place] 25 mg 25 mg 25 mg [facility] tablet TAKE tablet TAKE tablet ty ONE (1) ONE (1) TAKE ONE Hospi ta TABLET(S) TABLET(S) (1) l BY MOUTH AT BY MOUTH AT TABLET(S) Clinics BEDTIME BEDTIME BY MOUTH NEEDED. NEEDED. AT BEDTIME NEEDED. albuterol albuterol No 3mL TID albuterol [place] sulfate 2.5 sulfate 2.5 sulfate [facility] mg/3 mL mg/3 mL 2.5 mg/3 ty (0.083 %) (0.083 %) mL (0.083 Hospita solution solution %) l for for solution Clinics nebulizatio nebulizatio for n Inhale 3 n Inhale 3 nebulizati mL 3 times mL 3 times on Inhale a day by a day by 3 mL 3 nebulizatio nebulizatio times a n route as n route as day by needed. needed. nebulizati on route as needed. buprenorphi buprenorphi No buprenorph [place] ne 8 ne 8 ine 8 [facility] mg-naloxone mg-naloxone mg-naloxon ty 2 mg 2 mg e 2 mg Hospita sublingual sublingual sublingual l film TAKE film TAKE film TAKE Clinics ONE (1) ONE (1) ONE (1) FILM TWICE FILM TWICE FILM TWICE A DAY FOR A DAY FOR A DAY FOR 28 DAYS. 28 DAYS. 28 DAYS. buspirone buspirone No buspirone [place] 10 mg 10 mg 10 mg [facility] tablet TAKE tablet TAKE tablet ty TWO (2) TWO (2) TAKE TWO Hospi ta TABLET(S) TABLET(S) (2) l BY MOUTH BY MOUTH TABLET(S) Cl inics TWICE A TWICE A BY MOUTH DAY. DAY. TWICE A DAY. clonazepam clonazepam No clonazepam [place] 1 mg tablet 1 mg tablet 1 mg [facility] TAKE ONE TAKE ONE tablet ty (1) (1) TAKE ONE Hospita TABLET(S) TABLET(S) (1) l BY MOUTH BY MOUTH TABLET(S) Cl inics TWICE A TWICE A BY MOUTH DAY. DAY. TWICE A DAY. divalproex divalproex No divalproex [place] ER 500 mg ER 500 mg ER 500 mg [facility] tablet,exte tablet,exte tablet,ext ty nded nded ended Hospita release 24 release 24 release 24 l hr TAKE TWO hr TAKE TWO hr TAKE Clinics (2) (2) TWO (2) TABLET(S) TABLET(S) TABLET(S) BY MOUTH BY MOUTH BY MOUTH ONCE A DAY ONCE A DAY ONCE A DAY AT BEDTIME. AT BEDTIME. AT BEDTIME. escitalopra escitalopra No escitalopr [place] m 20 mg m 20 mg am 20 mg [facility] tablet TAKE tablet TAKE tablet ty ONE AND ONE AND TAKE ONE Hospi ta ONE-HALF (1 ONE-HALF (1 AND l AND 1/2) AND 1/2) ONE-HALF Cli nics TABLET(S) TABLET(S) (1 AND BY MOUTH BY MOUTH 1/2) DAILY. DAILY. TABLET(S) BY MOUTH DAILY. ProAir HFA ProAir HFA No ProAir HFA [place] 90 90 90 [facility] mcg/actuati mcg/actuati mcg/actuat ty on aerosol on aerosol ion [facility] inhaler inhaler aerosol l INHALE TWO INHALE TWO inhaler Clinics (2) PUFF(S) (2) PUFF(S) INHALE TWO BY MOUTH BY MOUTH (2) EVERY FOUR EVERY FOUR PUFF(S) BY TO SIX TO SIX MOUTH HOURS HOURS EVERY FOUR NEEDED. NEEDED. TO SIX HOURS NEEDED. quetiapine quetiapine No quetiapine [place] 25 mg 25 mg 25 mg [facility] tablet TAKE tablet TAKE tablet ty ONE (1) ONE (1) TAKE ONE Hospi ta TABLET(S) TABLET(S) (1) l BY MOUTH AT BY MOUTH AT TABLET(S) Clinics BEDTIME BEDTIME BY MOUTH NEEDED. NEEDED. AT BEDTIME NEEDED. Immunizations Ordered Filled Immunization Date Status Comments [facility] e Immunization Name Name influenza, influenza, 2020-05-31 Completed [place] [facility] injectable, injectable, 15:38:00 [facility] Cli n[facility] quadrivalent, quadrivalent, preservative free preservative free influenza, influenza, 2020-05-31 Completed [place] [facility] injectable, injectable, 15:38:00 [facility] Cli n[facility] quadrivalent, quadrivalent, preservative free preservative free influenza, influenza, 2020-05-31 Completed [place] [facility] injectable, injectable, 15:38:00 Hospital Cli n[facility] quadrivalent, quadrivalent, preservative free preservative free influenza, influenza, 2020-05-31 Completed [place] [facility] injectable, injectable, 15:38:00 [facility] Cli n[facility] quadrivalent, quadrivalent, preservative free preservative free influenza, influenza, 2020-05-31 Completed [place] [facility] injectable, injectable, 15:38:00 [facility] Cli n[facility] quadrivalent, quadrivalent, preservative free preservative free influenza, influenza, 2020-05-31 Completed [place] [facility] injectable, injectable, 15:38:00 [facility] Cli n[facility] quadrivalent, quadrivalent, preservative free preservative free influenza, influenza, 2020-05-31 Completed [place] [facility] injectable, injectable, 15:38:00 [facility] Cli nics quadrivalent, quadrivalent, preservative free preservative free influenza, influenza, 2020-05-31 Completed [place] [facility] injectable, injectable, 15:38:00 [facility] Cli n[facility] quadrivalent, quadrivalent, preservative free preservative free influenza, influenza, 2020-05-31 Completed [place] [facility] injectable, injectable, 15:38:00 [facility] Cli nics quadrivalent, quadrivalent, preservative free preservative free influenza, influenza, 2020-05-31 Completed [place] [facility] injectable, injectable, 15:38:00 [facility] Cli nics quadrivalent, quadrivalent, preservative free preservative free influenza, influenza, 2020-05-31 Completed [place] [facility] injectable, injectable, 15:38:00 [facility] Cli nics quadrivalent, quadrivalent, preservative free preservative free influenza, influenza, 2020-05-31 Completed [place] [facility] injectable, injectable, 15:38:00 [facility] Cli nics quadrivalent, quadrivalent, preservative free preservative free influenza, influenza, 2020-05-31 Completed [place] [facility] injectable, injectable, 15:38:00 [facility] Cli nics quadrivalent, quadrivalent, preservative free preservative free influenza, influenza, 2020-05-31 Completed [place] [facility] injectable, injectable, 15:38:00 [facility] Cli nics quadrivalent, quadrivalent, preservative free preservative free influenza, influenza, 2020-05-31 Completed [place] [facility] injectable, injectable, 15:38:00 [facility] Cli nics quadrivalent, quadrivalent, preservative free preservative free influenza, influenza, 2020-05-31 Completed [place] [facility] injectable, injectable, 15:38:00 [facility] Cli nics quadrivalent, quadrivalent, preservative free preservative free influenza, influenza, 2020-05-31 Completed [place] [facility] injectable, injectable, 15:38:00 [facility] Cli nics quadrivalent, quadrivalent, preservative free preservative free influenza, influenza, 2020-05-31 Completed [place] [facility] injectable, injectable, 15:38:00 [facility] Cli nics quadrivalent, quadrivalent, preservative free preservative free influenza, influenza, 2020-05-31 Completed [place] [facility] injectable, injectable, 15:38:00 [facility] Cli nics quadrivalent, quadrivalent, preservative free preservative free pneumococcal, pneumococcal, 2018-05-24 Completed [place] [facility] unspecified unspecified 00:00:00 [facility] Cli nics formulation formulation Tdap Tdap 2018-05-24 Completed [place] [facility] 00:00:00 [facility] pneumococcal, pneumococcal, 2018-05-24 Completed [place] [facility] unspecified unspecified 00:00:00 [facility] Cli nics formulation formulation Tdap Tdap 2018-05-24 Completed [place] [facility] 00:00:00 [facility] pneumococcal, pneumococcal, 2018-05-24 Completed [place] [facility] unspecified unspecified 00:00:00 [facility] Cli nics formulation formulation Tdap Tdap 2018-05-24 Completed [place] [facility] 00:00:00 [facility] pneumococcal, pneumococcal, 2018-05-24 Completed [place] [facility] unspecified unspecified 00:00:00 [facility] Cli nics formulation formulation Tdap Tdap 2018-05-24 Completed [place] [facility] 00:00:00 [facility] pneumococcal, pneumococcal, 2018-05-24 Completed [place] [facility] unspecified unspecified 00:00:00 [facility] Cli nics formulation formulation Tdap Tdap 2018-05-24 Completed [place] [facility] 00:00:00 [facility] pneumococcal, pneumococcal, 2018-05-24 Completed [place] [facility] unspecified unspecified 00:00:00 [facility] Cli nics formulation formulation Tdap Tdap 2018-05-24 Completed [place] [facility] 00:00:00 [facility] pneumococcal, pneumococcal, 2018-05-24 Completed [place] [facility] unspecified unspecified 00:00:00 [facility] Cli nics formulation formulation Tdap Tdap 2018-05-24 Completed [place] [facility] 00:00:00 [facility] pneumococcal, pneumococcal, 2018-05-24 Completed [place] [facility] unspecified unspecified 00:00:00 [facility] Cli nics formulation formulation Tdap Tdap 2018-05-24 Completed [place] [facility] 00:00:00 [facility] pneumococcal, pneumococcal, 2018-05-24 Completed [place] [facility] unspecified unspecified 00:00:00 [facility] Cli n[facility] formulation formulation Tdap Tdap 2018-05-24 Completed [place] [facility] 00[facility]00:00 [facility] pneumococcal, pneumococcal, 2018-05-24 Completed [place] [facility] unspecified unspecified 00:00:00 [facility] Cli nics formulation formulation Tdap Tdap 2018-05-24 Completed [place] [facility] 00:00:00 [facility] pneumococcal, pneumococcal, 2018-05-24 Completed [place] [facility] unspecified unspecified 00:00:00 [facility] Cli nics formulation formulation Tdap Tdap 2018-05-24 Completed [place] [facility] 00[facility]00:00 [facility] pneumococcal, pneumococcal, 2018-05-24 Completed [place] [facility] unspecified unspecified 00:00:00 [facility] Cli nics formulation formulation Tdap Tdap 2018-05-24 Completed [place] [facility] 00[facility]00:00 [facility] pneumococcal, pneumococcal, 2018-05-24 Completed [place] [facility] unspecified unspecified 00:00:00 [facility] Cli nics formulation formulation Tdap Tdap 2018-05-24 Completed [place] [facility] 00[facility]00:00 [facility] pneumococcal, pneumococcal, 2018-05-24 Completed [place] [facility] unspecified unspecified 00:00:00 [facility] Cli nics formulation formulation Tdap Tdap 2018-05-24 Completed [place] [facility] 00:00:00 [facility] pneumococcal, pneumococcal, 2018-05-24 Completed [place] [facility] unspecified unspecified 00:00:00 [facility] Cli nics formulation formulation Tdap Tdap 2018-05-24 Completed [place] [facility] 00:00:00 [facility] pneumococcal, pneumococcal, 2018-05-24 Completed [place] [facility] unspecified unspecified 00:00:00 [facility] Cli nics formulation formulation Tdap Tdap 2018-05-24 Completed [place] [facility] 00:00:00 [facility] pneumococcal, pneumococcal, 2018-05-24 Completed [place] [facility] unspecified unspecified 00:00:00 Hospital Cli nics formulation formulation Tdap Tdap 2018-05-24 Completed [place] [facility] 00:00:00 [facility] pneumococcal, pneumococcal, 2018-05-24 Completed [place] [facility] unspecified unspecified 00:00:00 [facility] Cli nics formulation formulation Tdap Tdap 2018-05-24 Completed [place] [facility] 00:00:00 [facility] pneumococcal, pneumococcal, 2018-05-24 Completed [place] [facility] unspecified unspecified 00:00:00 Hospital Cli nics formulation formulation Tdap Tdap 2018-05-24 Completed [place] [facility] 00:00:00 [facility] Pneumococcal 2018-05-18 Completed [facility] [place] [facility] PPSV23 (PNEUMOVAX) [facility] Pneumococcal 2018-05-18 Completed [facility] Pol[facility], 00:00:00 [place] [facility] PPSV23 (PNEUMOVAX) [facility] Pneumococcal 2018-05-18 Completed [facility] Polys[facility], 00:00:00 [place] [facility] PPSV23 (PNEUMOVAX) Branch Pneumococcal 2018-05-18 Completed [facility] Pol[facility], 00:00:00 [place] [facility] PPSV23 (PNEUMOVAX) Branch Pneumococcal 2018-05-18 Completed [facility] Pol[facility], 00:00:00 [place] [facility] PPSV23 (PNEUMOVAX) [facility] Td 2018-05-03 Completed [facility] 00:00:00 [facility] Td 2018-05-03 Completed [facility] 00[facility]00:00 [facility] Td 2018-05-03 Completed [facility] 00:00:00 [facility] Td 2018-05-03 Completed [facility] 00:00:00 [facility] Td 2018-05-03 Completed [facility] 00:00:00 [facility] Vital Signs Vital Name Observation Time Observation Value Comments Source BP Diastolic 2022-04-24 00:00:00 70 mm[Hg] [facility] s Height 2022-04-24 00:00:00 61 [in_i] [facility] s BMI (Body Mass 2022-04-24 00:00:00 26 kg/m2 [facility] s BP Systolic 2022-04-24 00:00:00 108 mm[Hg] [facility] s Body Weight 2022-04-24 00:00:00 2201.6 [oz_av] [facility] s BP Diastolic 2022 00:00:00 62 mm[Hg] [facility] s Height 2022 00:00:00 61 [in_i] [facility] s BP Systolic 2022 00:00:00 91 mm[Hg] [facility] s Systolic blood 2022-02-13 14:52:00 113 mm[Hg] [facility] Diastolic blood 2022-02-13 14:52:00 74 mm[Hg] Unive rsity of pressure [facility] Heart rate 2022-02-13 14:52:00 64 /min [facility] Body height 2022-02-13 14:52:00 154.9 cm [facility] Body weight 2022-02-13 14:52:[facility] 2022-02-13 14:52:00 26.45 kg/m2 [facility] Oxygen saturation in 2022-02-13 14:52:00 99 /min [facility] Arterial blood by [facility] Pulse oximetry Branch BP Diastolic 2021-11-06 00:00:00 107 mm[Hg] [facility] s Height 2021-11-06 00:00:00 61 [in_i] [facility] s BMI (Body Mass 2021-11-06 00:00:00 26.8 kg/m2 [facility] Clinic s BP Systolic 2021-11-06 00:00:00 147 mm[Hg] [facility] s Body Weight 2021-11-06 00:00:00 2268.8 [oz_av] [facility] s BP Diastolic 2021-10-09 00:00:00 62 mm[Hg] [facility] s Height 2021-10-09 00:00:00 61 [in_i] [facility] s BMI (Body Mass 2021-10-09 00:00:00 27.8 kg/m2 [facility] s BP Systolic 2021-10-09 00:00:00 128 mm[Hg] [facility] s Body Weight 2021-10-09 00:00:00 2355.2 [oz_av] [facility] s BP Diastolic 2021-06-05 00:00:00 59 mm[Hg] [facility] s Height 2021-06-05 00:00:00 61 [in_i] [facility] s BMI (Body Mass 2021-06-05 00:00:00 28.4 kg/m2 [facility] s BP Systolic 2021-06-05 00:00:00 111 mm[Hg] [facility] s Body Weight 2021-06-05 00:00:00 2403.2 [oz_av] [facility] Clinic s BP Diastolic 2021-04-24 00:00:00 80 mm[Hg] [facility] s Height 2021-04-24 00:00:00 61 [in_i] [facility] s BMI (Body Mass 2021-04-24 00:00:00 25.5 kg/m2 [facility] s BP Systolic 2021-04-24 00:00:00 123 mm[Hg] [facility] s Body Weight 2021-04-24 00:00:00 2156.8 [oz_av] [facility] s BP Diastolic 2021-03-21 00:00:00 66 mm[Hg] [facility] s Height 2021-03-21 00:00:00 61 [in_i] [facility] s BMI (Body Mass 2021-03-21 00:00:00 24.1 kg/m2 [facility] s BP Systolic 2021-03-21 00:00:00 103 mm[Hg] [facility] s Body Weight 2021-03-21 00:00:00 2044.8 [oz_av] [facility] s BP Diastolic 2021-02-21 00:00:00 67 mm[Hg] [facility] s Height 2021-02-21 00:00:00 61 [in_i] [facility] s BMI (Body Mass 2021-02-21 00:00:00 22.9 kg/m2 [facility] s BP Systolic 2021-02-21 00:00:00 97 mm[Hg] [facility] s Body Weight 2021-02-21 00:00:00 1942.4 [oz_av] [facility] s BP Diastolic 2021-01-29 00:00:00 63 mm[Hg] [facility] s Height 2021-01-29 00:00:00 61 [in_i] [facility] s BMI (Body Mass 2021-01-29 00:00:00 23.2 kg/m2 [facility] s BP Systolic 2021-01-29 00:00:00 101 mm[Hg] [facility] s Body Weight 2021-01-29 00:00:00 1968 [oz_av] [facility] s BP Diastolic 2021-01-23 00:00:00 76 mm[Hg] [facility] s Height 2021-01-23 00:00:00 61 [in_i] [facility] s BMI (Body Mass 2021-01-23 00:00:00 22.7 kg/m2 [facility] s BP Systolic 2021-01-23 00:00:00 108 mm[Hg] [facility] s Body Weight 2021-01-23 00:00:00 1926.4 [oz_av] [facility] s Height 2020-12-24 00:00:00 61 [in_i] [facility] s BP Diastolic 2020-11-22 00:00:00 64 mm[Hg] [facility] s Height 2020-11-22 00:00:00 61 [in_i] [facility] s BMI (Body Mass 2020-11-22 00:00:00 23.1 kg/m2 [facility] s BP Systolic 2020-11-22 00:00:00 110 mm[Hg] [facility] s Body Weight 2020-11-22 00:00:00 1955.2 [oz_av] [facility] s BP Diastolic 2020-09-28 00:00:00 75 mm[Hg] [facility] s Height 2020-09-28 00:00:00 61 [in_i] [facility] s BMI (Body Mass 2020-09-28 00:00:00 23.3 kg/m2 [facility] s BP Systolic 2020-09-28 00:00:00 114 mm[Hg] [facility] s Body Weight 2020-09-28 00:00:00 1974.4 [oz_av] [facility] s BP Diastolic 2020-09-12 00:00:00 66 mm[Hg] [facility] s Height 2020-09-12 00:00:00 61 [in_i] [facility] s BMI (Body Mass 2020-09-12 00:00:00 23.6 kg/m2 [facility]) [facility] s BP Systolic 2020-09-12 00:00:00 109 mm[Hg] [facility] s Body Weight 2020-09-12 00:00:00 2000 [oz_av] [facility] s Height 2022-04-23 19:45:00 154.94 cm [facility] Weight 2022-04-23 19:45:00 [facility] BMI Calculated 2022-04-23 19:45:00 [facility] Respitory Rate 2022-04-23 19:39:22 [facility] [place] Systolic (mm Hg) 2022-04-23 19:39:16 Onel rial [facility]ang Diastolic (mm Hg) 2022-04-23 19:39:16 [facility] [place] Heart Rate 2022-04-23 19:39:16 [facility] Heart Rate 2022-02-26 19:45:00 [facility] Respitory Rate 2022-02-26 19:45:00 Memori al [facility] Systolic (mm Hg) 2022-02-26 19:45:00 Onel rial [facility] Diastolic (mm Hg) 2022-02-26 19:45:00 [facility] [place] Heart Rate 2022-02-26 19:30:00 [facility] [place] Systolic (mm Hg) 2022-02-26 19:30:00 Onel [facility] [place] Diastolic (mm Hg) 2022-02-26 19:30:00 [facility] [place] Respitory Rate 2022-02-26 19:30:00 [facility] [place] Heart Rate 2022-02-26 19:15:00 [facility] Systolic (mm Hg) 2022-02-26 19:15:00 Onel rial [place] Diastolic (mm Hg) 2022-02-26 19:15:00 [facility] [place] Respitory Rate 2022-02-26 19:15:00 Memori al [facility] Height 2022-02-26 16:03:00 154.94 cm [facility] Weight 2022-02-26 16:03:00 [facility] BMI Calculated 2022-02-26 16:03:00 Memori al [facility] Temperature Oral (F) 2022-02-26 13:58:47 97.9 F [facility] [place] Heart Rate 2022-02-21 18:00:00 [facility] Systolic (mm Hg) 2022-02-21 18:00:00 Onel rial [place] Diastolic (mm Hg) 2022-02-21 18:00:00 Mem orial [facility] Heart Rate 2022-02-10 18:00:00 [facility] Systolic (mm Hg) 2022-02-10 18:00:00 Onel rial [place] Diastolic (mm Hg) 2022-02-10 18:00:00 [facility] [place] Heart Rate 2022-02-03 18:10:00 [facility] Systolic (mm Hg) 2022-02-03 18:10:00 Onel rial [place] Diastolic (mm Hg) 2022-02-03 18:10:00 Mem orial [place] Systolic (mm Hg) 2022-01-31 17:10:00 Onel rial [place] Diastolic (mm Hg) 2022-01-31 17:10:00 Mem orial [facility] Heart Rate 2022-01-27 18:00:00 [facility] Heart Rate 2022-01-27 14:11:00 [facility] Respitory Rate 2022-01-27 14:11:00 [facility] [place] Systolic (mm Hg) 2022-01-27 14:11:00 Onel [facility] [place] Diastolic (mm Hg) 2022-01-27 14:11:00 [facility] [place] Height 2022-01-27 14:11:00 152.4 cm [facility] [place] Weight 2022-01-27 14:11:00 [facility] BMI Calculated 2022-01-27 14:11:00 [facility] [place] Systolic (mm Hg) 2022-01-17 18:25:00 Onel rial [place] Diastolic (mm Hg) 2022-01-17 18:25:00 [facility] [place] Heart Rate 2022-01-17 15:00:00 [facility] Systolic (mm Hg) 2022-01-17 15:00:00 Onel rial [place] Diastolic (mm Hg) 2022-01-17 15:00:00 [facility] [place] Systolic (mm Hg) 2022-01-10 17:26:00 Onel rial [place]ang Diastolic (mm Hg) 2022-01-10 17:26:00 Mem orial [facility] Heart Rate 2022-01-10 15:10:00 [facility] [place] Heart Rate 2022-01-07 16:00:00 [facility] [place] Heart Rate 2021-12-18 21:00:00 [facility] Systolic (mm Hg) 2021-12-18 21:00:00 Onel rial [place] Diastolic (mm Hg) 2021-12-18 21:00:00 Mem orial [facility] Heart Rate 2021-12-17 18:49:00 [facility] [place] Systolic (mm Hg) 2021-12-17 18:49:00 Onel rial [place] Diastolic (mm Hg) 2021-12-17 18:49:00 [facility] [place] Diastolic (mm Hg) 2021-12-17 13:00:00 [facility] [place] Heart Rate 2021-12-17 13:00:00 [facility] Systolic (mm Hg) 2021-12-17 13:00:00 Onel rial [facility] Procedures Procedure Date / Time Performing Clinician Source Performed AUTHORIZATION FOR RELEASE 2022-05-30 05:01:00 Doctor Unassigned, [facility] US ABDOMEN LIMITED 2022-05-02 18:15:51 Harris Cuellar [facility] Injection(s), of 2022-02-26 16:56:00 [facility] rmann diagnostic or therapeutic substance(s) (eg, anesthetic, antispasmodic, opioid, steroid, other solution), not including neurolytic substances, including needle or catheter placement, interlaminar epidural or subarachnoid, lumbar or sacral CT, head + brain, w/o 2021-10-09 00:00:00 [facility] CT, abdomen + pelvis, w/ 2021-10-09 00:00:00 [facility] US, duplex, venous, lower 2021-10-09 00:00:00 [facility] extremity [facility] US, echocardiogram 2021-10-09 00:00:00 [facility] CT, abdomen + pelvis, w/o 2021-10-09 00:00:[address] [facility] [address], abdomen + pelvis, w/o 2021-05-13 00:00:[address] [facility] [address], lower extremity, w/o 2021-05-13 00:00:00 [facility] US, abdomen + pelvis 2021-04-24 00:00:00 [facility] electrocardiogram, routine 2021-04-24 00:00:00 [facility] ECG, 12 leads [facility], chest, 2 view 2021-01-30 00:00:00 [facility] XR, knee, 3 view 2021-01-29 00:00:00 [facility] Cholecystectomy [facility] Caesarean Section [facility] Appendectomy [facility] Plan of Care Planned Activity Planned Date Details Comments Source Future Scheduled Test 2022-05-24 IMM Influenza [facility] 00:00:00 Seasonal (>/= 19 yrs) [code = IMM Influenza Seasonal (>/= 19 yrs)] Diagnostic Test 2022-04-24 lipid panel, serum [facility] Pending 00:00:00 [code = lipid [facility] cs panel, serum] Diagnostic Test 2022-04-24 HbA1c (hemoglobin [facility] Pending 00:00:00 A1c), blood [code = [facility] HbA1c (hemoglobin A1c), blood] Diagnostic Test 2022-04-24 CMP, serum or [facility] Pending 00:00:00 plasma [code = CMP, [facility] Clinics serum or plasma] Diagnostic Test 2022-04-24 magnesium, serum or [facility] Pending 00:00:00 plasma [code = Hospital Clin ics magnesium, serum or plasma] Future Scheduled Test 2022 Breast Cancer Scrn [facility] 00:00:00 (Yearly) [code = Breast Cancer Scrn (Yearly)] Future Scheduled Test 2012 Screening for Brianna graff [facility] 00:00:00 malignant neoplasm of cervix (procedure) [code = 794000227] Future Scheduled Test 2012 Screening for Cameroni s [facility] 00:00:00 malignant neoplasm of cervix (procedure) [code = 203489885] Future Scheduled Test 1982 COVID-19 Vaccine Last [facility] 00:00:00 (#1) [code = COVID-19 Vaccine (#1)] Instructions [facility] s Encounters Start End Encounter Admission Attending Care Care Encounter Source Date/Time Date/Time Type Type Clinicians Facility Department ID 2022-04-03 Outpatient [facility] [id number] [place] 12:44:29 [id number] [facility] 2022-02-21 Outpatient [facility] [id number] [place] 11:43:36 [id number] [facility] 2022-02-18 Outpatient [facility] [id number] [place] 09:01:26 [id number] [facility] 2022-01-27 Outpatient [facility] [id number] [place] 08:34:58 [id number] [facility] 2022-01-17 Outpatient [facility] [id number] [place] 11:07:21 [id number] [facility] 2022-01-13 Outpatient [facility] [id number] [place] 10:42:54 [id number] [facility] 2021-11-25 Outpatient [facility] [id number] [place] 05:05:40 [id number] [facility] 2021-09-18 Outpatient [facility] [id number] Common 12:27:07 [id number] [facility] 2021-06-[address] [facility] [id number] Univers 15:56:54 [facility] 2021-06-09 Outpatient [facility] [id number] Legacy 11:22:08 [id number] [facility] 2022-05-30 2022-05-30 Orders Doctor MILTON 1.2.840.114 [id number] Univers 00:00:00 00:00:00 Only Unassigned, PARVEEN 350.1.13.10 ity of [facility] 4.2.7.2.686 [facility] [id number] [facility] [address] 2022-05-02 2022-05-02 Outpatient [facility] [id number] Univers 12:48:18 23:59:00 HARRIS ity of [facility] 2022-05-02 2022-05-02 [facility] 1.2.840.114 [id number] Univers 12:48:18 23:59:00 Encounter Harrisair Hemanth ADLER 350.1.13.10 ity of [place] 4.2.7.2.686 [facility] [id number] [facility] [address] 2022-04-23 2022-04-[place] [id number] Memoria 18:55:00 04:59:00 r Spasticity 05 l [facility] 2022-04-24 2022-04-24 Outpatient CHRETIEN_F [facility] 86 - [place] 00:00:00 00:00:00 901 Commun i ty [facility] 2022-04-24 2022-04-24 Verito [facility] [place] [facility] [place] 00:00:00 00:00:00 Latasha, [facility] Co mmuni [employer]-SHANK TURNER-B Hospital - ty C: [address] [facility], [address], [place] [address] , Ph. 2022-04-24 2022-04-24 Outpatient [facility], [facility] [id number] 00:00:00 00:00:00 Verito [id number] 2022-04-24 2022-04-24 [facility] [id number] 00:00:00 00:00:00 Verito [id number] 2022-04-24 2022-04-24 Outpatient Latasha, [facility] [id number] 00:00:00 00:00:00 Verito [id number] 2022-04-23 2022-04-23 Outpatient SANDRITA, [facility] [id number] [place] 14:00:00 14:00:00 [facility] 2022-03-12 2022-04-11 Tots nullFlavo TIRR [id number] Memoria 21:28:00 04:59:00 Therapy r [facility] 02 l Hoang Bolton 2022-04-03 2022-04-03 Outpatient CHRETIEN_F [facility] 86 - [place] 00:00:00 00:00:00 811 Commun i ty [facility] 2022-04-03 2022-04-03 [facility]phone [facility] 1.2.840.114 [id number] Univers 00:00:00 00:00:00 [facility] 350.1.13.10 [facility] 4.2.7.2.686 [place] MILA?BLEA [id number] [address] MEDICAL OFFICE BUILDING 2022 2022 Outpatient CHRETIEN_F [facility] [id number] - [place] 01:03:00 01:03:00 718 Commun i ty [facility] 2022 2022 Verito [facility] [place] 18 [place] 00:00:00 00:00:00 Latasha [facility] mmuni [employer]-SHANK TURNER-B [facility] C: [address] [facility], [address], [place] [address] , Ph. 2022 2022 Outpatient Latasha [facility] [id number] 00:00:00 00:00:00 Verito [id number] 2022-02-26 2022-02-27 Outpatient nullFlavo TR Baclofen 3 [id number] Memoria 13:51:00 04:59:00 r Related 03 l (BACR) [place] 2022-02-26 2022-02-26 Office DIA BARAKAT MSRDP 1.2.840.114 [id number] [place] 10:00:00 10:00:00 Visit ELIO Spann LOCATION 350.1.13.58 [facility] 9.2.7.2.686 [id number] 9 2022-01-27 2022-02-26 Tots nullFlavo TIRR [id number] Memoria 05:00:00 04:59:00 Therapy r Memorial 01 l [facility] 2022-02-21 2022-02-22 Outpatient nullFlavo TR Baclofen 3 [id number] Memoria 17:55:00 04:59:00 r Related 04 l (BACR) [place] 2022-02-13 2022-02-13 Office [facility] [id number] [id number] [facility] 09:45:00 10:05:[address] [facility] 350.1.13.10 it y of [place] 4.2.7.2.686 [place] MILA?BLEA [id number] [address] OFFICE [facility] 2022-02-13 2022-02-13 Outpatient Dam[facility] [id number] Univers 09:45:00 10:05:26 [facility] 2022-02-13 2022-02-13 Outpatient Damaris [facility] [id number] Univers 09:45:00 09:45:00 [facility] 2022-02-12 2022-02-12 Outpatient CHRETIEN_F [facility] [id number] - [place] 04:06:00 04:06:00 622 Commun i ty Hospita l Clinics 2022-02-12 2022-02-12 Outpatient CHRETIEN_F [facility] 86 - [place] 04:06:00 04:06:00 712 Commun i ty Hospita l Clinics 2022-01-29 2022-01-29 [facility] Cuellar [facility] 1.2.840.114 [id number] Univers 16:52:34 23:59:00 Encounter Harris Hwang HEALTH 350.1.13.10 ity of [place]2.7.2.[place] [id number] [facility] [address] 2022-01-29 2022-01-29 Outpatient R [facility] [id number] Univers 16:52:16 16:51:00 PRATEEK ity [facility] 2022-01-29 2022-01-29 [facility] RichWANDY 1.2.840.114 [id number] Univers 16:30:00 16:51:00 Encounter Prateek Hwang [facility] 350.1.13.10 ity of [place] 4[place].7.2.[place] [id number] [facility] [address] 2022-01-27 2022-01-28 [place] [id number] Memoria 13:29:00 04:59:00 r Spasticity 02 l [facility] Johny owusu [facility] 2022-01-27 2022-01-27 [facility] [id number] [place] 08:45:00 08:45:00 [facility] 2022-01-27 2022-01-27 Orders Doctor YOAN 1.2.840.114 [id number] Univers 00:00:00 00:00:00 Only Unassigned, PARVEEN 350.1.13.10 ity of [facility] 4.2.7.2.686 [place] [id number] [facility] [address] 2021-12-24 2022-01-23 Tots nullFlavo TIRR [id number] Memoria 14:00:00 04:59:00 Therapy r Memorial 00 l Hoang Bolton 2022-01-03 2022-01-03 Patient Noa [facility] 1.2.840.114 [id number] Univers 00:00:00 00:00:00 Secure Msg Anuel [facility] 350.1.13.10 ity of [place].2.7.2.[place] [id number] [facility] [address] OFFICE BUILDING 2021-12-31 2021-12-31 Outpatient R [address]IVAN [facility] [id number] Univers 00:00:00 00:00:00 [facility] 2021-12-30 2021-12-30 Office [facility] [id number] Univers 15:15:00 15:57:[address] [facility] 350.1.13.10 it y of [place] 4.2.7.2.686 [place] MILA?BLEA [id number] Ut dicdebbie TAYLOR[address] OFFICE [facility] 2021-12-30 2021-12-30 Outpatient [facility] [id number] [facility] 15:15:00 15:57:28 [facility] 2021-12-30 2021-12-30 Telephone Noa [facility] 1.2.840.114 [id number] Univers 00:00:00 00:00:00 [facility] 350.1.13.10 ity of [place] 4.2.7.2.686 [place] MILA?BLEA [id number] Ut rashaundebbie [address] OFFICE [facility] 2021-12-27 2021-12-27 Outpatient [facility] [id number] [place] 00:00:00 00:00:00 [facility] 2021-11-21 2021-12-21 Tots nullFlavo TIRR [id number] Memoria 12:00:00 04:59:00 Therapy r Memorial 00 l Hoang [place] 2021-12-20 2021-12-20 Outpatient [facility] [id number] [place] 00:00:00 00:00:00 [facility] 2021-12-19 2021-12-19 Outpatient [facility] [id number] Univers 08:00:00 08:00:00 [facility] 2021-12-10 2021-12-10 Patient GARRET Plasencia 1.2.840.114 [id number] Univers 00:00:00 00:00:00 Secure Msg Anuel Browne [facility] 350.1.13.10 ity of [facility] 4.2.7.2.[place] [id number] [address] 2021-12-05 2021-12-05 Outpatient ESAU, [facility] [id number] [place] 00:00:00 00:00:00 [facility] 2021-12-03 2021-12-[address] [facility] [id number] Univers 12:13:09 23:59:00 ANUEL PLASENCIA [facility] 2021-12-03 2021-12-03 Office Noa [facility] 1.2.840.114 [id number] Univers 11:00:00 12:19:24 Visit [facility] 350.1.13.10 [facility] 4.2.7.2.686 [place] MILA?BLEA [id number] [address] OFFICE [facility] 2021-12-03 2021-12-[address] [facility] [id number] Univers 11:00:00 12:19:24 ANUEL PLASENCIA [facility] 2021-12-03 2021-12-[address] [facility] [id number] Univers 11:00:00 11:00:00 ANUEL PLASENCIA [facility] 2021-11-29 2021-11-29 Outpatient ESAU, [facility] [id number] [place] 00:00:00 00:00:00 [facility] 2021-11-29 2021-11-29 Patient Doctor [facility] 1.2.840.114 [id number] Univers 00:00:00 00:00:00 Secure Ms Unassigned, [facility] 350.1.13.10 ity of [place] 4.2.7.2.686 [place] MILA?BLEA [id number] [address] OFFICE [facility] 2021-11-25 2021-11-25 Telephone Noa [facility] 1.2.840.114 [id number] Univers 00:00:00 00:00:00 [facility] 350.1.13.10 ity of [place] 4.2.7.2.686 [place] MILA?BLEA [id number] [address] MEDICAL OFFICE BUILDING 2021-11-21 2021-11-21 Patient Doctor [facility] 1.2.840.114 [id number] Univers 00:00:00 00:00:00 Secure Msg Unassigned, HEALTH 350.1.13.10 ity of [place] 4.2.7.2.686 [place] MILA?BLEA [id number] Ut brooks TAYLOR[address] OFFICE [facility] 2021-11-14 2021-11-14 Patient Noa [facility] 1.2.840.114 [id number] Univers 00:00:00 00:00:00 Secure Msg FANCRU [facility] 350.1.13.10 ity of [place] 4.2.7.2.686 [place] MILA?BLEA [id number] Ut brooks TAYLOR[address] OFFICE [facility] 2021-11-14 2021-11-14 Patient Noa [facility] 1.2.840.114 [id number] Univers 00:00:00 00:00:00 Secure Msg Anuel [facility] 350.1.13.10 ity of [place] 4.2.7.2.686 [place] MILA?BLEA [id number] Ut brooks TAYLOR[address] OFFICE [facility] 2021-11-14 2021-11-14 Patient Doctor [facility] 1.2.840.114 [id number] Univers 00:00:00 00:00:00 Secure Msg Unassigned, HEALTH 350.1.13.10 ity of [place] 4.2.7.2.686 [place] MILA?BLEA [id number] Ut brooks TAYLOR[address] OFFICE [facility] 2021-11-14 2021-11-14 Patient Noa [facility] 1.2.840.114 [id number] Univers 00:00:00 00:00:00 Secure Msg [employer] 350.1.13.10 ity of [place] 4.2.7.2.686 [place] MILA?BLEA [id number] [address] OFFICE [facility] 2021-11-13 2021-11-[address] RICH [facility] [id number] Univers 15:15:00 16:05:10 [facility] 2021-11-13 2021-11-13 Ancillary Imani Esqueda [facility] 1.2.84 0.114 [id number] Univers 15:15:00 16:05:10 Visit Prateek Rich 350.1.13.10 ity of [place].2.7.2.686 [place] PROFESS[place] [id number] Ut dical [facility] 179 [facility] 2021-11-12 2021-11-12 [facility] WANDY PlasenciaIT 1.2.840.114 [id number] [facility] 09:23:27 23:59:00 Encounter Anuel Gene HEALTH 350.1.13.10 ity of [place] 4.2.[place].2.[place] [id number] [facility] [address] [place] 2021-11-12 2021-11-12 Outpatient R [address]AANUEL [facility] [id number] [facility] 09:23:10 09:22:00 NOAANUEL Farrell ity [facility] 2021-11-12 2021-11-12 [facility] 1.2.840.114 [id number] [facility] 09:00:00 09:22:00 Encounter Anuel LimeTray [facility] 350.1.13.10 ity of [place] 4[place] [id number] [facility] [address] [place] 2021-11-11 2021-11-11 Outpatient KELI, [facility] [id number] [place] 00:00:00 00:00:00 [facility] 2021-11-07 2021-11-[address] [facility] [id number] [place] 00:00:00 00:00:00 [facility] 2021-11-07 2021-11-07 Patient GARRET Plasencia 1.2.840.114 [id number] [facility] 00:00:00 00:00:00 Secure Msg Anuel Gene HEALTH 350.1.13.10 ity of [place] 4.2.[place].2.[place] [id number] [facility] [address] [place] 2021-11-07 2021-11-07 Orders Le, [facility] [id number] [place] 00:00:00 00:00:00 Only [facility] 2021-11-06 2021-11-06 Outpatient WATERS_S [facility] [id number] [place] 05:27:00 05:27:00 316 Commun i ty [facility]osp[facility] Clin[facility] 2021-11-06 2021-11-06 Sherri [facility] [place] [facility] [place] [id number] [place] 00:00:00 00:00:00 Taran [facility] [employer] LO[employer]ER-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 Clinics [address], [place] [address] , Ph. 2021-11-06 2021-11-06 Outpatient Molly [facility] [id number] 00:00:00 00:00:00 Sherri [id number] 2021-10-29 2021-10-[address] Damaris RICH [facility] [id number] Univers 16:00:00 17:12:13 PRATEEK itherman of [facility] 2021-10-29 2021-10-29 Ancillary Imani Esqueda [facility] 1.2.84 0.114 [id number] Univers 16:00:00 17:12:13 Visit Prateek Rich 350.1.13.10 [place] [id number] Ut dical NAL [address] [facility] 2021-10-29 2021-10-29 Orders Doctor YOAN 1.2.840.114 [id number] Univers 00:00:00 00:00:00 Only Unassigned, PARVEEN 350.1.13.10 ity of [facility] 4.2.7.2.686 [place] as [phone] [facility] [address] Branch 2021-10-28 2021-10-28 Patient WANDY PlasenciaJULIA 1.2.840.114 [id number] Univers 00:00:00 00:00:00 [facility] 350.1.13.10 ity of [facility] [place] [id number] [facility] vance 092 Branch 2021-10-25 2021-10-25 [facility] [id number] [place] 13:20:00 14:08:16 ne Drea Ocampo [facility] 2021-10-25 2021-10-25 [facility] [id number] [place] 05:11:51 14:08:16 DREA [facility] 2021-10-18 2021-10-18 Telemedici , [facility] [id number] [place] 13:40:00 14:59:39 [facility] 2021-10-18 2021-10-18 Outpatient LE, [facility] [id number] [place] 07:18:22 14:59:39 [facility] 2021-10-16 2021-10-16 [facility] [id number] [facility] 15:15:00 15:15:00 PRATEEK itherman of [facility] 2021-10-15 2021-10-15 Orders Doctor MILTON 1.2.840.114 [id number] [facility] [facility] 00:[facility] 00:00:00 Only Unassigned, PARVEEN [id number] ity of [place] [facility] [id number] [place] as [phone] [address] 2021-10-14 2021-10-14 Telephone Noa [facility] 1.2.840.114 [id number] [facility] 00:00:00 00:00:00 [facility] [id number] ity of [place] 4.2.7.2.686 [place] as MILA?BLEA [phone] Ut brooks [address] MEDICAL OFFICE BUILDING 2021-10-11 2021-10-11 Outpatient , [facility] [id number] [place] 00:00:00 00:00:00 Health 2021-10-09 2021-10-09 Outpatient KAREL [facility] [id number] [place] 12:44:00 12:44:00 216 [facility] i ty [facility] 2021-10-09 2021-10-09 Sherri [facility] [place] 16 [place] 00:00:00 00:00:00 Taran Henderson Comm uni [employer]-EMPLOYEE HEALTH NURSE-C: Hospital - ty [address] [place] [address] [address], [place] [address] , Ph. 2021-10-09 2021-10-09 Outpatient Molly, [facility] [id number] 00:00:00 00:00:00 Sherri [id number] 2021-10-09 2021-10-09 Outpatient Molly [facility] [id number] 00:00:00 00:00:00 Sherri [id number] 2021-10-[address] [facility] [id number] Univers 11:20:00 12:34:09 NOAANUEL [facility] 2021-10-08 2021-10-08 Outpatient Damaris PLASENCIA AN[facility]EL [facility] [id number] [facility] 11:20:00 12:34:09 NOAANUEL [facility] 2021-10-08 2021-10-08 Outpatient MOLLY_S [facility] [id number] [place] 03:08:00 03:08:00 215 Commun i ty [facility]ospita [facility] 2021-10-07 2021-10-07 Outpatient , [facility] [id number] [place] 15:41:33 16:25:26 [facility] 2021-10-07 2021-10-07 Telemedici , [facility] [id number] [place] 14:40:00 16:25:26 [facility] 2021-10-02 2021-10-[address] R [address] [facility] [id number] Univers 11:11:41 23:59:00 [facility] 2021-10-02 2021-10-02 [facility] 1.2.840.114 [id number] Univers 11:00:00 23:59:00 Encounter Harris ADLER [id number] [facility] [id number] [facility] [phone] [facility] [address] [place] [address] 2021-09-30 2021-09-30 Telemedici Le, [facility] [id number] [place] 08:00:00 12:42:25 [facility] 2021-09-30 2021-09-30 Outpatient KELI, [facility] [id number] [place] 07:27:45 12:42:25 [facility] 2021-09-30 2021-09-30 [facility] [id number] [place] 00:00:00 00:00:00 [facility] 2021-09-25 2021-09-25 Orders Keli, [facility] [id number] [place] 00:00:00 00:00:00 Only [facility] 2021-09-24 2021-09-24 [facility]patient [facility] [id number] [place] 00:00:00 00:00:00 [facility] 2021-09-23 2021-09-23 Orders Doctor YOAN [id number] [place] [address] 00:00:00 00:00:00 Only Unassigned, PARVEEN [id number] ity of [place] [facility] [id number] [place] [phone] [address] 2021-09-19 2021-09-[address] [facility] [id number] [address] [place] [address] 05:56:34 05:56:34 [facility] 2021-09-19 2021-09-19 Patient BELLO Tineo 1.2.840.[id number] [place] [address] 00:00:00 00:00:00 Outreach Melania Richardson [facility] [id number] i ty of [place] [id number] [place] as MILA?BLEA [phone] Ut rashaun[address] MEDICAL OFFICE BUILDING 2021-09-18 2021-09-18 Outpatient WATERS_S [facility] [id number] [place] 01:55:00 01:55:00 126 Commun i ty Hospita l Clinics 2021-09-18 2021-09-18 Outpatient WATERS_S [facility] [id number] [place] 01:55:00 01:55:00 214 Commun i ty Hospita l Clinics 2021-09-18 2021-09-18 Sherri [facility] [place] 00:00:00 00:00:00 Henderson, [facility] [place] [employer] LO[employer]ER-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 Clinics [address], [place] [address] , Ph. 2021-09-16 2021-09-16 Outpatient MOLLY_Ian [facility] [id number] [place] 12:16:00 12:16:00 124 Commun i ty [facility] 2021-09-16 2021-09-16 Telephone BELLO Plasencia 1.2.840.114 [id number] [facility] 00:00:00 00:00:00 [facility] [id number] ity of [place] 4.2.7.2.686 Grody as MILA?BLEA [phone] [address] OFFICE [facility] 2021-08-26 2021-08-26 Telemedici Le, [facility] [id number] [address] [place] [address] 08:00:00 10:06:53 il Health 2021-08-26 2021-08-26 Outpatient , [facility] [id number] [address] [place] [address] 07:15:50 10:06:53 Health 2021-08-19 2021-08-19 Telephone BELLO Plasencia 1.2.840.114 [id number] [facility] 00:00:00 00:00:00 [facility] [id number] ity of [place] [id number] [place] MILA?BLEA [phone] [address] 2021-08-12 2021-08-12 Telemedici Le, [facility] [id number] [place] 14:00:00 15:10:26 il Health 2021-08-12 2021-08-12 Outpatient , [facility] [id number] [place] 07:15:09 15:10:26 Health 2021-08-09 2021-08-09 Telephone BELLO Plasencia 1.2.840.114 [id number] [facility] 00:00:00 00:00:00 [facility] [id number] ity of [place] [id number] [place] MILA?BLEA [phone] [facility] [address] OFFICE [facility] 2021-08-08 2021-08-[address] [facility] [id number] Univers 15:59:14 23:59:00 ANUEL PLASENCIA [facility] 2021-08-08 2021-08-08 [facility] Noa [facility] [id number] [id number] [facility] 15:59:14 23:59:00 Encounter Anuel Browne [place] 350.1.13.10 ity [facility] 4.2.7.2.686 [place] [facility] [phone] [address] 2021-07-31 2021-07-[address] [facility] [id number] [place] 06:29:28 06:29:28 Health 2021-07-29 2021-07-29 Outpatient KELI, [facility] [id number] [place] 13:23:32 16:36:51 Health 2021-07-29 2021-07-29 Office Noa HISARTHAK 1.2.840.114 [id number] [facility] 09:50:58 10:29:41 Visit Anuel Browne [facility] [id number] ity [facility] [id number] [place] MILA?BLEA [phone] [address] OFFICE [facility] 2021-07-29 2021-07-29 [address] [facility] [id number] [facility] 09:40:00 10:29:41 ANUEL PLASENCIA [facility] 2021-07-26 2021-07-26 Outpatient AN[address]EL HE [facility] [id number] [facility] 11:20:00 11:20:00 ANUEL PLASENCIA [facility] 2021-07-11 2021-07-[address] [facility] [id number] [place] 06:29:15 06:29:15 Health 2021-07-01 2021-07-01 Outpatient LE, [facility] [id number] [place] 15:54:18 15:55:48 Health 2021-06-28 2021-06-[address] [facility] [id number] [place] 13:49:32 16:08:08 Health 2021-06-05 2021-06-05 Outpatient [facility] 668 [place] 05:28:00 05:28:00 _L 013 Commun i ty Hospita l Clinics 2021-06-05 2021-06-05 Outpatient [facility] [id number] 00:00:00 00:00:00 , Beulah [id number] Hernandez [id number] 2021-06-05 2021-06-05 Trudy [facility] [place] [facility] [place] 202 [id number] [place] 00:00:00 00:00:00 [facility] MORGAN JenkinsC: [address], [place] [address] , Ph. 2021-06-03 2021-06-03 Outpatient LE, ALEX [facility] [id number] [place] 07:29:33 15:18:34 Health 2021-05-29 2021-05-[address] [facility] [id number] [place] 06:54:49 15:06:16 Health 2021-05-27 2021-05-[address] [facility] [id number] [place] 00:00:00 00:00:00 [facility] 2021-05-06 2021-05-06 Outpatient LE, ALEX [facility] [id number] [place] 06:15:23 14:45:59 Health 2021-04-24 2021-04-24 Outpatient [facility] 668 [place] 03:50:00 03:50:00 _L 901 Commun i ty Hospita l Clinics 2021-04-24 2021-04-24 Outpatient [facility] [id number] 00:00:00 00:00:00 , Beulah [id number] 2021-04-24 2021-04-24 Beulah Hernandez [facility] [place] [facility] [place] 202 [id number] [place] 00:00:00 00:00:00 [facility] MORGAN JenkinsC: Hospital - [address], [facility] [address], [place] [address] , Ph. 2021-04-01 2021-04-01 Outpatient ALEX DICKEY [facility] [id number] [place] 14:50:43 15:55:41 Health 2021-03-21 2021-03-21 Outpatient [place] [id number] [place] 12:20:00 12:20:00 _L 729 Commun i ty [facility] 2021-03-21 2021-03-[address] [id number] 00:00:00 00:00:00 , Beulah [id number] Mary [id number] 2021-03-21 2021-03-21 Beualh Hernandez [facility] [place] [facility] [place] 202 [id number] [place] 00:00:00 00:00:00 [facility] JYOTI Jenkins-C: [address], [facility] [address], [place] [address] , Ph. 2021-02-21 2021-02-21 Outpatient [place] [id number] [place] 12:16:00 12:16:00 _L 701 [facility] 2021-02-21 2021-02-21 Outpatient [facility] [id number] 00:00:00 00:00:00 , Beulah [id number] Mary [id number] 2021-02-21 2021-02-21 Outpatient [facility] [id number] 00:00:00 00:00:00 , Beulah [id number] Mary [id number] 2021-02-21 2021-02-21 Beulah Hernandez [facility] [place] [facility] [place] 202 [id number] [place] 00:00:00 00:00:00 [facility] JYOTI Jenkins-C: Hospital - ty [address] [place] [address] [address], [place] [address] , Ph. 2021-02-15 2021-02-15 Outpatient Damaris RILEYCUELLAR [facility] [id number] Univers 00:00:00 00:00:00 [facility] 2021-01-29 2021-01-29 Outpatient [facility] 66 [place] 03:07:00 03:07:00 _L 608 Commun i ty [facility] 2021-01-29 2021-01-29 Outpatient [facility] [id number] 00:00:00 00:00:00 , Beulah [id number] Mary [id number] 2021-01-29 2021-01-29 Beulah Hernandez [facility] [place] 202 [id number] [place] 00:00:00 00:00:00 [facility] JYOTI Jenkins-C: Hospital - ty [address] [place] [address] [address], [place] [address] , Ph. 2021-01-23 2021-01-23 Outpatient [place] [id number] [place] 04:41:00 04:41:00 _L 602 Commun i ty [facility] 2021-01-23 2021-01-23 Beulah Hernandez [facility] [place] 202 [id number] [place] 00:00:00 00:00:00 [facility] JYOTI Jenkins-C: Hospital - ty [address] [place] [address] [address], [place] [address] , Ph. 2021-01-23 2021-01-23 Outpatient [facility] 23e [id number] 00:00:00 00:00:00 , Beulah [id number] Mary [id number] 2021-01-23 2021-01-23 Outpatient [facility] 23e [id number] 00:00:00 00:00:00 , Beulah [id number] Mary [id number] 2020-12-24 2020-12-24 Outpatient [facility] 668 [place] 02:57:00 02:57:00 _L 503 Commun i ty Hospita [facility] 2020-12-24 2020-12-24 Trudy [facility] [place] 202 [id number] [place] 00:00:00 00:00:00 Demarcoroec [facility] MORGAN JenkinsC: [address] [address], [place] [address] , Ph. 2020-12-24 2020-12-24 Outpatient [facility] [id number] 00:00:00 00:00:00 , Beulah [id number] Mary [id number] 2020-12-06 2020-12-06 Outpatient R AKINSIPE, [facility] [id number] Univers 13:00:00 13:00:00 [facility] ity o [facility] 2020-11-29 2020-11-29 Outpatient R AKINSIPE, [facility] [id number] Univers 14:15:00 14:15:00 MICHELLE ity o [facility] 2020-11-22 2020-11-22 Outpatient [facility] [id number] [place] 04:13:00 04:13:00 _L 401 Commun i ty [facility]ospita [facility] 2020-11-22 2020-11-22 Trudy [facility] [place] 202 [id number] [place] 00:00:00 00:00:00 [facility] JYOTI Jenkins-C: Hospital [address] [facility], [place] [address] , Ph. 2020-11-22 2020-11-22 Outpatient [facility] 17e [id number] 00:00:00 00:00:00 , Beulah [id number] Mary [id number] 2020-10-23 2020-10-[address] [facility] [id number] Univers 13:00:00 13:00:00 [facility] 2020-10-01 2020-10-01 Outpatient [facility] 668 [place] 10:07:00 10:07:00 _L 208 Commun i ty Hospita l Clinics 2020-09-28 2020-09-28 Outpatient [facility] 668 [place] 12:59:00 12:59:00 _L 205 Commun i ty [facility] 2020-09-28 2020-09-28 Outpatient [facility] [id number] 00:00:00 00:00:00 , Beulah [id number] Mary [id number] 2020-09-28 2020-09-28 Beulah Hernandez [facility] [place] 202 [id number] [place] 00:00:00 00:00:00 [facility] LENA rodriguezP-C: [address], [place] [address] , Ph. 2020-09-24 2020-09-[address] [facility] [id number] Univers 11:20:00 11:20:00 AUNEL PLASENCIA [facility] 2020-09-13 2020-09-13 Outpatient [facility] 668 [place] 09:19:00 09:19:00 _L 121 Commun i ty Hospita l Clinics 2020-09-12 2020-09-12 Outpatient [facility] 66 [place] 04:07:00 04:07:00 _L 120 Commun i ty Hospita l Clinics 2020-09-12 2020-09-[address] [id number] 00:00:00 00:00:00 , Beulah [id number] Mary [id number] 2020-09-12 2020-09-12 Beulah Hernandez [facility] [place] 202 [id number] [place] 00:00:00 00:00:00 [facility] LENA JenkinsP-C: Hospital - [address] [address], [place] [address] , Ph. 2020-09-07 2020-09-[address] HE [facility] [id number] [facility] 14:40:00 14:40:00 ANUEL PLASENCIA [facility] 2020-08-28 2020-08-28 Outpatient [place] [id number] [place] 01:54:00 01:54:00 _L 105 Commun i ty Hospita [facility] 2020-08-28 2020-08-28 Beulah Hernandez [facility] [place] 202 [id number] [place] 00:00:00 00:00:00 [facility] JYOTI Jenkins-C: Hospital - ty [address] [place], [place] [address], [place] [address] , Ph. 2020-08-07 2020-08-07 Outpatient [place] [id number] [place] 01:36:00 01:36:00 _L 104 Commun i ty Hospita l Clinics 2020-01-06 2020-01-06 [address] HE [facility] [id number] Univers 14:40:00 14:40:00 ANUEL PLASENCIA [facility] 2019-11-01 2019-11-01 Outpatient AN[address]EL HE [facility] [id number] Univers 11:00:00 11:00:00 ANUEL PLASENCIA [facility] 2019-11-01 2019-11-01 Outpatient R ANUEL PLASENCIA [facility] [id number] Univers 09:40:00 09:40:00 ANUEL PLASENCIA [facility] 2019-10-13 2019-10-13 Outpatient Damaris VALENTIN [facility] [id number] Univers 08:00:00 16:02:48 OCRISTINE o f [facility] Results Test Description Test Time Test Comments Results Result Comments Source SARS-CoV-2 (COVID-19) Ag [Presence] in Respiratory spe cimen by 2021-02-21 17:25:00 Rapid immunoassay Test Item Value Reference Range Interpretation Comme nts SARS CoV 2 (test code = SARS CoV 2) negative [facility] ([facility]OVID-19) Ag [Presence] in Respiratory specimen by Rapid [id number] 17:25:00 Test Item Value Reference Range Interpretation Comments SARS CoV 2 (test code = SARS CoV 2) negative [facility] 1995 panel - Serum or [id number] 00:00:00 Test Item Value Reference Range Interpretation Comments Cholesterol 220 mg/dL <200 H [Mass/volume] in Serum or Plasma (test code = 2093-3) Cholesterol in HDL 66 mg/dL See_Comment [Automat ed [Mass/volume] in message] Th e system Serum or Plasma (test which generated code = 2085-9) this result transmitted reference range : > or = 50. The reference range was not used to interpret this result as normal/abnormal . Triglyceride 47 mg/dL <150 [Mass/volume] in Serum or Plasma (test code = 2571-8) Cholesterol in LDL 140 mg/dL H [Mass/volume] in (calc) Serum or Plasma by calculation (test code = 14473-8) Cholesterol.total/Cho 3.3 (calc) <5.0 lesterol in HDL [Mass Ratio] in Serum or Plasma (test code = 9830-1) Cholesterol non HDL 154 mg/dL <130 H [Mass/volume] in (calc) Serum or Plasma (test code = 62802-3) [facility] ClinicsHepatitis 1995 panel - [id number] 00:00:00 Test Item Value Reference Range Interpretation Comments Hepatitis B virus surface Ag non-reactive non-reactive [Presence] in Serum or Plasma by Immunoassay (test code = 5196-1) Hepatitis B virus surface Ab non-reactive non-reactive [Presence] in Serum by Immunoassay (test code = 08628-6) Hepatitis B virus core Ab non-reactive non-reactive [Presence] in Serum or Plasma by Immunoassay (test code = 13234-2) Hepatitis C virus Ab [Presence] reactive non-reactive A in Serum or Plasma by Immunoassay (test code = 46153-3) Hepatitis C virus Ab 25.50 <1.00 H Signal/Cutoff in Serum or Plasma by Immunoassay (test code = 78584-5) Hepatitis A virus Ab [Presence] non-reactive non-reactive in Serum by Immunoassay (test code = 88981-4) [facility] virus RNA [Units/volume] (viral load) in Serum or Plasma by ADRIANE with probe [id number] 00:00:00 Test Item Value Reference Range Interpretation Comments Hepatitis C virus RNA 7201660 IU/mL not detected H [Units/volume] (viral load) in Serum or Plasma by ADRIANE with probe detection (test code = 87241-7) Hepatitis C virus RNA [log 6.21 log IU/mL not detected H units/volume] (viral load) in Serum or Plasma by ADRIANE with probe detection (test code = 67195-0) comment (test code = comment) [facility] metabolic 2000 panel - Serum or [id number] 00:00:00 Test Item Value Reference Range Interpretation Comments Glucose [Mass/volume] in 81 mg/dL 65-99 Serum or Plasma (test code = 2345-7) Urea nitrogen [Mass/volume] 12 mg/dL 7-25 in Serum or Plasma (test code = 3094-0) Creatinine [Mass/volume] in 0.80 mg/dL 0.50-1.10 Serum or Plasma (test code = 2160-0) Urea nitrogen/Creatinine not applicable 6-22 [Mass Ratio] in Serum or Plasma (test code = 3097-3) Sodium [Moles/volume] in 136 mmol/L 135-146 Serum or Plasma (test code = 2951-2) Potassium [Moles/volume] in 4.2 mmol/L 3.5-5.3 Serum or Plasma (test code = 2823-3) Chloride [Moles/volume] in 102 mmol/L 98-110 Serum or Plasma (test code = 2075-0) Calcium [Mass/volume] in 9.5 mg/dL 8.6-10.2 Serum or Plasma (test code = 06617-5) Protein [Mass/volume] in 7.9 g/dL 6.1-8.1 Serum or Plasma (test code = 2885-2) Albumin [Mass/volume] in 4.6 g/dL 3.6-5.1 Serum or Plasma (test code = 1751-7) Globulin [Mass/volume] in 3.3 g/dL (calc) 1.9-3.7 Serum by calculation (test code = 80950-1) Albumin/Globulin [Mass Ratio] 1.4 (calc) 1.0-2.5 in Serum or Plasma (test code = 1759-0) Bilirubin.total [Mass/volume] 0.5 mg/dL 0.2-1.2 in Serum or Plasma (test code = 1975-2) Alkaline phosphatase 96 U/L 31-125 [Enzymatic activity/volume] in Serum or Plasma (test code = 6768-6) Aspartate aminotransferase 46 U/L 10-30 H [Enzymatic activity/volume] in Serum or Plasma (test code = 1920-8) [facility] [employer] Auto Differential panel - [id number] 00:00:00 Test Item Value Reference Range Interpretation Comments Leukocytes [#/volume] in 6.0 thousand/uL 3.8-10.8 Blood by Automated count (test code = 6690-2) Erythrocytes [#/volume] in 5.41 million/uL 3.80-5.10 H Blood by Automated count (test code = 789-8) Hemoglobin [Mass/volume] in 16.5 g/dL 11.7-15.5 H Blood (test code = 718-7) Hematocrit [Volume Fraction] 49.7 % 35.0-45.0 H of Blood by Automated count (test code = 4544-3) Erythrocyte mean corpuscular 91.9 fL 80.0-100.0 volume [Entitic volume] by Automated count (test code = 787-2) Erythrocyte mean corpuscular 30.5 pg 27.0-33.0 hemoglobin [Entitic mass] by Automated count (test code = 785-6) Erythrocyte mean corpuscular 33.2 g/dL 32.0-36.0 hemoglobin concentration [Mass/volume] by Automated count (test code = 786-4) Erythrocyte distribution 11.9 % 11.0-15.0 width [Ratio] by Automated count (test code = 788-0) Platelets [#/volume] in Blood 307 thousand/uL 140-400 by Automated count (test code = 777-3) Platelet mean volume [Entitic 10.9 fL 7.5-12.5 volume] in Blood by Helio-Taylor (test code = 776-5) Neutrophils [#/volume] in 3480 cells/uL 4679-1202 Blood by Automated count (test code = 751-8) Lymphocytes [#/volume] in 1680 cells/uL 850-3900 Blood by Automated count (test code = 731-0) Monocytes [#/volume] in Blood 660 cells/uL 200-950 by Automated count (test code = 742-7) Eosinophils [#/volume] in 120 cells/uL 15-500 Blood by Automated count (test code = 711-2) Basophils [#/volume] in Blood 60 cells/uL 0-200 by Automated count (test code = 704-7) Neutrophils/100 leukocytes in 58 % Blood by Automated count (test code = 770-8) Lymphocytes/100 leukocytes in 28 % Blood by Automated count (test code = 736-9) Monocytes/100 leukocytes in 11 % Blood by Automated count (test code = 5905-5) Eosinophils/100 leukocytes in 2 % Blood by Automated count (test code = 713-8) Basophils/100 leukocytes in 1 % Blood by Automated count (test code = 706-2) Service comment 01 (test code = 8251-1) [facility] Clinicspathology [id number] 00:00:00 PathologistA SourceA Micro DescriptionA DiagnosisChildren'S Hospital Of San AntonioThyroxine (T4) free [Mass/volume] in Serum or [id number] 00:00:00 Test Item Value Reference Range Interpretation Comments Thyroxine (T4) free [Mass/volume] 1.3 NG/dL 0.8-1.8 in Serum or Plasma (test code = 3024-7) [facility] AntonioThyrotropin [Units/volume] in Serum or Plasma 2020-12-18 00:00:00 Test Item Value Reference Range Interpretation Comments Thyrotropin [Units/volume] in 2.43 mIU/L Serum or Plasma (test code = 3016-3) [facility] Antonio25-Hydroxyvitamin D3+25-Hydroxyvitamin D2 [Mass/volume] in Serum or [id number] 00:00:00 Test Item Value Reference Range Interpretation Comments 25-hydroxyvitamin D3 [Mass/volume] 15 NG/mL 30-100 L in Serum or Plasma (test code = 1989-3) [facility] complete panel - [id number] 00:00:00 Test Item Value Reference Range Interpretation Comments Color of Urine (test yellow yellow code = 5778-6) Appearance of Urine cloudy clear A (test code = 5767-9) Specific gravity of 1.017 1.001-1.035 Urine by Test strip (test code = 5811-5) pH of Urine by Test 7.0 5.0-8.0 strip (test code = 5803-2) Glucose [Presence] in negative negative Urine by Test strip (test code = 97672-9) Bilirubin.total negative negative [Presence] in Urine by Test strip (test code = 5770-3) Ketones [Presence] in negative negative Urine by Test strip (test code = 2514-8) Hemoglobin [Presence] negative negative in Urine by Test strip (test code = 5794-3) Protein [Presence] in negative negative Urine by Test strip (test code = 68918-6) Nitrite [Presence] in positive negative A Urine by Test strip (test code = 5802-4) Leukocyte esterase trace negative A [Presence] in Urine by Test strip (test code = 5799-2) Leukocytes [#/area] in 6-10 See_Comment A [Aut omated message] Urine sediment by The system which Microscopy high power genera yashira this result field (test code = transmitt ed reference 5821-4) range: < or = 5 . The reference range was not used to int erpret this result as normal/abnormal . Erythrocytes [#/area] none seen See_Comment [Auto mated message] in Urine sediment by The sys tem which Microscopy high power genera yashira this result field (test code = transmitt ed reference 26801-1) range: < or = 2 . The reference range was not used to int erpret this result as normal/abnormal . Epithelial 0-5 See_Comment [Automated mes zahida] cells.squamous [#/area] The system which in Urine sediment by generat ed this result Microscopy high power transm itted reference field (test code = range: < or = 5. The 80857-5) reference range was not used to int erpret this result as normal/abnormal . Bacteria [#/area] in many none seen A Urine sediment by Microscopy high power field (test code = 5769-5) Hyaline casts [#/area] none seen none seen in Urine sediment by Microscopy low power field (test code = 5796-8) [facility] 2020-12-14 00:00:00 Test Item Value Reference Range Interpretation Comments Bacteria identified in Urine by see note A Culture (test code = 630-4) [facility]dipstick) panel - Urine 2020-11-22 14:50:00 Test Item Value Reference Range Interpretation Comments Leukocytes (test code = Moderate Leukocytes) Nitrite (test code = Nitrite) negative Urobilinogen (test code = .2 Urobilinogen) Protein (test code = Protein) Negative pH (test code = pH) 5.0 Blood (test code = Blood) Large Specific [place] (test code = 1.015 Specific [place]) Ketone (test code = Ketone) Negative Bilirubin (test code = Negative Bilirubin) Glucose (test code = Glucose) Negative Appearance (test code = Slightly Cloudy Appearance) Color (test code = Color) Yellow [facility]-CoV-2 (COVID-19) Ag [Presence] in Respiratory specimen by Rapid [id number] 15:09:00 Test Item Value Reference Range Interpretation Comments SARS CoV 2 (test code = SARS CoV 2) negative [facility]-CoV-2 (COVID-19) Ag [Presence] in Respiratory specimen by Rapid [id number] 15:09:00 Test Item Value Reference Range Interpretation Comments SARS CoV 2 (test code = SARS CoV 2) negative [facility] Culture 2020-08-30 00:00:00 Test Item Value Reference Range Interpretation Comments Bacteria identified in Urine escherichia coli A by Culture (test code = 630-4) Other Antibiotic comment [Susceptibility] (test code = 29059-5) [facility] 2020-08-30 00:00:00 Test Item Value Reference Range Interpretation Comments Bacteria identified in Urine escherichia coli A by Culture (test code = 630-4) Other Antibiotic comment [Susceptibility] (test code = 72953-1) [facility]dipstick) [facility] - Urine 2020-08-28 11:40:00 Test Item Value Reference Range Interpretation Comments Leukocytes (test code = Moderate Leukocytes) Nitrite (test code = positive Nitrite) Urobilinogen (test code = .2 Urobilinogen) Protein (test code = Negative Protein) pH (test code = pH) 6.0 Blood (test code = Blood) Hemolyzed: Trace Specific [place] (test code 1.020 = Specific [place]) Ketone (test code = Ketone) Negative Bilirubin (test code = Negative Bilirubin) Glucose (test code = Negative Glucose) Appearance (test code = Cloudy Appearance) Color (test code = Color) Yellow [facility] macro (dipstick) panel - Urine 2020-08-28 11:40:00 Test Item Value Reference Range Interpretation Comments Leukocytes (test code = Moderate Leukocytes) Nitrite (test code = positive Nitrite) Urobilinogen (test code = .2 Urobilinogen) Protein (test code = Negative Protein) pH (test code = pH) 6.0 Blood (test code = Blood) Hemolyzed: Trace Specific [place] (test code 1.020 = Specific [place]) Ketone (test code = Ketone) Negative Bilirubin (test code = Negative Bilirubin) Glucose (test code = Negative Glucose) Appearance (test code = Cloudy Appearance) Color (test code = Color) Yellow [facility]
--- NOTE | 2022-08-08 16:46 | RAD REPORT ---
EXAM DESCRIPTION: CT - CTHCSPWOC - 08/08/2022 4:35 pm CLINICAL HISTORY: Trauma, head and neck injury. trauma COMPARISON: Head C Spine Mpr Wo Con dated 08/15/2021; [id number] dated 04/27/2009 TECHNIQUE: Axial 5 mm thick images of the head were obtained. Axial 2 mm thick images of the cervical spine were obtained with sagittal and coronal reconstruction images generated and reviewed. All CT scans are performed using dose optimization technique as appropriate and may include automated exposure control or mA/KV adjustment according to patient size. FINDINGS: CT HEAD WITHOUT CONTRAST: No acute hemorrhage, hydrocephalus or extra-axial collection is identified.No areas of brain edema or midline shift. The paranasal sinuses and mastoids are clear.Prior left temporal craniectomy noted. Left superior tripe scraper niotomy also present. CT CERVICAL SPINE WITHOUT CONTRAST: No fracture or subluxation.Mild lower cervical degenerative changes are present.No prevertebral soft tissues swelling is identified. IMPRESSION: No acute intracranial or cervical spine findings. Mild lower cervical degenerative changes.
--- NOTE | 2022-08-08 17:02 | ER ---
Nurse's Notes [facility] Name: Laura Smith Age: 42 yrs Sex: Female : 1980 Arrival Date: 08/08/2022 Time: 15:52 Bed 5 Private MD: Diagnosis: Repeated falls;Slurred speech Presentation: 08/08 16:14 Chief complaint: Patient states: Pt reports multiple falls since 2018 when she kb3 experienced a TBI. States her friend wanted her to come in and be evaluated today because she is falling more frequently. Pt also reports slurred speech since yesterday with a history of TIA. Coronavirus screen: Vaccine status: Patient reports being unvaccinated. Client denies travel out of the [place] in the last 14 days. Ebola Screen: Patient negative for fever greater than or equal to 101.5 degrees Fahrenheit, and additional compatible Ebola Virus Disease symptoms Patient denies exposure to infectious person. Patient denies travel to an Ebola-affected area in the 21 days before illness onset. No symptoms or risks identified at this time. Initial Sepsis Screen: Does the patient meet any 2 criteria? No. Patient's initial sepsis screen is negative. Does the patient have a suspected source of infection? No. Patient's initial sepsis screen is negative. Risk Assessment: Do you want to hurt yourself or someone else? Patient reports no desire to harm self or others. Onset of symptoms is unknown. 16:14 Method Of Arrival: Wheelchair [facility] 16:14 Acuity: DARIEL 3 kb3 Triage Assessment: 16:16 General: Appears in no apparent distress. Behavior is calm, cooperative. Pain: kb3 Complains of pain in occipital area Pain does not radiate. Pain currently is 7 out of 10 on a pain scale. Neuro: Reports headache. GAS FITTER: 16:16 LMP 08/06/2022 kb3 Historical: - Allergies: 16:16 Benadryl; kb3 16:16 iodine (IV) (Anaphylaxis); kb3 16:16 PENICILLINS (Hives); kb3 16:16 Toradol (Hives); kb3 - Home Meds: 16:16 Lexapro Oral [Active]; clonazepam 1 mg Oral tab 1 tab 3 times per day [Active]; kb3 Suboxone 8-2 mg sublingual film 2 film once daily [Active]; Seroquel Oral [Active]; - PMHx: 16:16 Anxiety; Asthma; Bipolar disorder; CHF; COPD; Pancreatitis; PTSD; Schizophrenia; Skull kb3 Fracture Left Parietal Area; TIA; Drug dependence; - PSHx: 16:16 Unable to Obtain; kb3 - Immunization history:: Adult Immunizations unknown, Client reports having NOT received the Covid vaccine. - Social history:: Smoking status: Patient reports the use of cigarette tobacco products, smokes one pack cigarettes per day. - Family history:: not pertinent. Screenin:15 [facility] ED Fall Risk Assessment (Adult) History of falling in the last 3 months, ko1 including since admission Yes- physiologic fall (2 pts) Confusion or Disorientation No (0 pts) Intoxicated or Sedated No (0 pts) Impaired Gait Yes (1 pt) Mobility Assist Device Used No (0 pt) Altered Elimination No (0 pt) Score/Fall Risk Level 3 or more points = High Risk. Abuse screen: Denies threats or abuse. Denies injuries from another. Nutritional screening: No deficits noted. Tuberculosis screening: No symptoms or risk factors identified. Fall Risk Fall in past 12 months (25 points). Assessment: 16:15 General: Appears in no apparent distress. uncomfortable, unkempt, Behavior is ko1 appropriate for age, anxious, restless. Pain: Complains of pain in scalp and occipital area. Neuro: No deficits noted. Cardiovascular: No deficits noted. Respiratory: No deficits noted. GI: No deficits noted. : No deficits noted. EENT: No deficits noted. Derm: No deficits noted. Musculoskeletal: No deficits noted. Vital Signs: 16:14 Pulse 70; Resp 18; Temp 98.2; Pulse Ox 96% ; Weight 58.97 kg; Height 5 ft. 2 in. kb3 (157.48 cm); Pain 8/10; 16:15 BP 118 / 64; Pulse 74; Pulse Ox 98% on R/A; ko1 16:14 Body Mass Index 23.78 (58.97 kg, 157.48 cm) kb3 ED Course: 15:52 Patient arrived in ED. mr 15:57 Otoniel Patel MD is Attending Physician. rt 15:59 Lulu Goss, TRACY is Primary Nurse. ko1 16:15 Patient has correct armband on for positive identification. Bed in low position. Call ko1 light in reach. Side rails up X 1. Pulse ox on. NIBP on. 16:15 No provider procedures requiring assistance completed. Patient did not have IV access ko1 during this emergency room visit. 16:16 Triage completed. kb3 16:16 Arm band placed on right wrist. kb3 16:37 CT Head C Spine In Process Unspecified. EDMS Administered Medications: No medications were administered Medication: 16:15 VIS not applicable for this client. ko1 Outcome: 16:15 Discharged to home ambulatory. ko1 16:15 Condition: stable 16:15 Discharge instructions given to patient, Instructed on discharge instructions, follow up and referral plans. Demonstrated understanding of instructions, follow-up care. 17:01 Discharge ordered by MD. rt 17:14 Patient left the ED. ko1 Signatures: Dispatcher [employer] EDMS Amira Cates Kelly, RN RN kb3 Lulu Goss, RN RN ko1 Otoniel Patel MD MD rt Corrections: (The following items were deleted from the chart) 16:18 16:16 Home Meds: Fioricet Oral; kb3 kb3 16:18 16:16 Home Meds: gabapentin Oral; kb3 kb3 16:18 16:16 Home Meds: irone; kb3 kb3
--- NOTE | 2022-08-08 17:02 | EDPHYS ---
Physician Documentation [facility] Name: Laura Smith Age: 42 yrs Sex: Female : 1980 Arrival Date: 08/08/2022 Time: 15:52 Bed 5 Private MD: ED Physician Otoniel Patel HPI: 08/08 16:45 This 42 yrs old Female presents to ER via Wheelchair with complaints of Fall Injury, rt Slurred Speech. 16:45 Details of fall: The patient fell from an upright position. Onset: The symptoms/episode rt began/occurred 1 month(s) ago. Associated injuries: The patient sustained injury to the head. Severity of symptoms: At their worst the symptoms were moderate. Patient presents to the ED with multiple falls over the past month. Patient states that her last fall was today stating that she hit her head. She states that she has had a slurred speech for the past day. She denies any word finding difficulty. She reports a difficulty moving her right leg which she states is chronic. Denies other neurologic symptoms. Denies other acute complaints at this time. Symptoms are moderate severity, no other aggravating or alleviating factors.. 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 kb3 Historical: - Allergies: 16:16 Benadryl; kb3 16:16 iodine (IV) (Anaphylaxis); kb3 16:16 PENICILLINS (Hives); kb3 16:16 Toradol (Hives); kb3 - Home Meds: 16:16 Lexapro Oral [Active]; clonazepam 1 mg Oral tab 1 tab 3 times per day [Active]; kb3 Suboxone 8-2 mg sublingual film 2 film once daily [Active]; Seroquel Oral [Active]; - PMHx: 16:16 Anxiety; Asthma; Bipolar disorder; CHF; COPD; Pancreatitis; PTSD; Schizophrenia; Skull kb3 Fracture Left Parietal Area; TIA; Drug dependence; - PSHx: 16:16 Unable to Obtain; kb3 - Immunization history:: Adult Immunizations unknown, Client reports having NOT received the Covid vaccine. - Social history:: Smoking status: Patient reports the use of cigarette tobacco products, smokes one pack cigarettes per day. - Family history:: not pertinent. ROS: 16:45 Constitutional: Negative for fever, chills, and weight loss, Eyes: Negative for injury, rt pain, redness, and discharge, ENT: Negative for injury, pain, and discharge, Neck: Negative for injury, pain, and swelling, Cardiovascular: Negative for chest pain, palpitations, and edema, Respiratory: Negative for shortness of breath, cough, wheezing, and pleuritic chest pain, Abdomen/GI: Negative for abdominal pain, nausea, vomiting, diarrhea, and constipation, Back: Negative for injury and pain, MS/Extremity: Negative for injury and deformity, Skin: Negative for injury, rash, and discoloration, Psych: Negative for depression, anxiety, suicide ideation, homicidal ideation, and hallucinations. 16:45 Neuro: Positive for dizziness, headache, numbness. Exam: 16:45 Constitutional: This is a well developed, well nourished patient who is awake, alert, rt and in no acute distress. Head/Face: Normocephalic, atraumatic. Eyes: Pupils equal round and reactive to light, extra-ocular motions intact. Lids and lashes normal. Conjunctiva and sclera are non-icteric and not injected. Cornea within normal limits. Periorbital areas with no swelling, redness, or edema. ENT: Nares patent. No nasal discharge, no septal abnormalities noted. Tympanic membranes are normal and external auditory canals are clear. Oropharynx with no redness, swelling, or masses, exudates, or evidence of obstruction, uvula midline. Mucous membranes moist. Neck: Trachea midline, no thyromegaly or masses palpated, and no cervical lymphadenopathy. Supple, full range of motion without nuchal rigidity, or vertebral point tenderness. No Meningismus. Chest/axilla: Normal chest wall appearance and motion. Nontender with no deformity. No lesions are appreciated. Cardiovascular: Regular rate and rhythm with a normal S1 and S2. No gallops, murmurs, or rubs. Normal PMI, no JVD. No pulse deficits. Respiratory: Lungs have equal breath sounds bilaterally, clear to auscultation and percussion. No rales, rhonchi or wheezes noted. No increased work of breathing, no retractions or nasal flaring. Abdomen/GI: Soft, non-tender, with normal bowel sounds. No distension or tympany. No guarding or rebound. No evidence of tenderness throughout. MS/ Extremity: Pulses equal, no cyanosis. Neurovascular intact. Full, normal range of motion. Psych: Awake, alert, with orientation to person, place and time. Behavior, mood, and affect are within normal limits. 16:45 Neuro: Below the slurred speech, no aphasia, cranial nerves II through XII are intact, there is mild sensory loss on the left arm, 5/5 strength on bilateral upper extremities, 1/5 strength on right lower extremity, chronic per patient, strength intact in left lower extremity, sensation intact throughout lower extremities. No ataxia on [id number].. 16:48 ECG was reviewed by the Attending Physician. rt Vital Signs: 16:14 Pulse 70; Resp 18; Temp 98.2; Pulse Ox 96% ; Weight 58.97 kg; Height 5 ft. 2 in. kb3 (157.48 cm); Pain 8/10; 16:15 BP 118 / 64; Pulse 74; Pulse Ox 98% on R/A; ko1 16:14 Body Mass Index 23.78 (58.97 kg, 157.48 cm) kb3 MDM: 16:01 Patient medically screened. rt 17:02 Differential diagnosis: closed head injury, contusion, Intracranial hemorrhage, rt intraparenchymal hemorrhage, TIA, CVA.. Data reviewed: vital signs, nurses notes, old medical records, EKG, radiologic studies. ED course: Patient presents to the ED with increasing frequency of falls. She reported head trauma today. CT scan of the head and C-spine are unremarkable. EKG is unremarkable. I did recommend that the patient obtain blood work to evaluate the cause of these falls. Patient strongly wishes to not have any blood work be performed and strongly does not wish to stay in the hospital for further evaluation. TIA was under consideration, discussed with the patient as well. She knows that TIA has not been completely ruled out. She refuses further evaluation for TIA, has decision-making capacity. We will follow-up as an outpatient, return precautions were discussed.. 08/08 16:14 Order name: CT Head C Spine; Complete Time: 16:49 rt 16 16:14 Order name: EKG; Complete Time: 16:14 rt 1216 16:14 Order name: EKG - Nurse/Tech; Complete Time: 16:31 rt EC:48 Rate is 66 beats/min. Rhythm is regular, Normal Sinus Rhythm with No ectopy. QRS [place] rt is Normal. IN interval is normal. QRS interval is normal. QT interval is normal. No Q waves. T waves are Normal. No ST changes noted. Clinical impression: Normal ECG. Interpreted by me. Administered Medications: No medications were administered Disposition Summary: 08/08/22 17:01 Discharge Ordered Location: Home rt Problem: an ongoing problem rt Symptoms: are unchanged rt Condition: Stable rt Diagnosis - Repeated falls rt - Slurred speech rt Followup: rt - With: Private Physician - When: 2 - 3 days - Reason: Discharge Instructions: - Discharge Summary Sheet rt - Fall Prevention in the Home, Adult, [id number] rt Forms: - Medication Reconciliation Form rt - Thank You Letter rt - Antibiotic Education rt - Prescription Opioid Use rt Signatures: Dispatcher [employer] EDMS Lisa Estrada RN RN kb3 Otoniel Patel MD MD rt Corrections: (The following items were deleted from the chart) 16:18 16:16 Home Meds: Fioricet Oral; kb3 kb3 16:18 16:16 Home Meds: gabapentin Oral; kb3 kb3 16:18 16:16 Home Meds: irone; kb3 kb3
[2022-08-08 17:28] VITALS: TEMP 98.2
[2022-08-08 17:29] VITALS: BP 118/64; O2SAT 98
--- NOTE | 2022-08-10 15:55 | EKG ---
Test Date: 2022-08-08 Test Time: 16:23:03 Leather Repairer: JON MEASUREMENT RESULTS: Intervals: Rate: 66 ID: [id number] QRSD: 70 QT: 394 QTc: 413 [place]: P: 75 ID: [id number] QRS: 37 T: 28 INTERPRETIVE STATEMENTS: Normal sinus rhythm Low voltage QRS Borderline ECG Compared to ECG 11/08/2016 01:00:35 Low QRS voltage now present Electronically Signed On 08-10-22 15:54:43 BEATER TENDER by Sukhdev Valdivia
== END 2022-08-08 17:14 | disposition home or self-care (01) ==
LOC: ER 15:45
DX: R47.81 Slurred speech (principal); R29.6 Repeated falls; Z87.820 Personal history of traumatic brain injury; F20.9 Schizophrenia, unspecified; Z88.0 Allergy status to penicillin; Z88.6 Allergy status to analgesic agent; Z91.048 Other nonmedicinal substance allergy status
CPT/HCPCS: 70450; 72125; 93005; 99283

== ENCOUNTER → 2023-09-27 | Emergency (ER) | payer OTHER ==
[~2023-09-27] MED LIST: CEFTRIAXONE 1000 MG/VIAL ONE; FLUCONAZOLE 100 MG TAB ONE; METRONIDAZOLE 500mg IVPB 500 MG/100 ML BAG IV ONE; MORPHINE 4 MG/ML SYR ONE; NA CHLORIDE 0.9% 1,000 ML ONE; ONDANSETRON 4 MG/2 ML VIAL ONE; WATER FOR INJ,STERILE 10 ML ONE
[2023-09-27 19:25] LABS: Specific Gravity 1.018 (1.005-1.030); Urine Bacteria <20 /HPF (<20); Urine Bilirubin NEGATIVE (Negative); Urine Blood 3+ (OVER) (Negative); Urine Clarity Extremely Turbid (Clear); Urine Color Light-Yellow (Yellow); Urine Glucose NEGATIVE (Negative); Urine Mucus 1+ /HPF (None Seen); Urine Protein NEGATIVE (Negative); Urine RBC <5 /HPF (None Seen); Urine Urobilinogen Normal (Normal); Urine pH 5.5 (5.0-7.0)
[2023-09-27 19:55] LABS: Specific Gravity 1.019 (1.005-1.030)
--- NOTE | 2023-09-27 20:18 | RAD REPORT ---
EXAM DESCRIPTION: CT - Abdomen Pelvis Wo Contrast - 09/27/2023 7:55 pm CLINICAL HISTORY: Abdominal pain COMPARISON: 2017 TECHNIQUE: Computed axial tomography of the abdomen and pelvis was obtained. IV and oral contrast we re not requested. All CT scans are performed using dose optimization technique as appropriate and may include automated exposure control or mA/KV adjustment according to patient size. FINDINGS: The evaluation of solid organs, vessels and bowel is limited secondary to the lack of con trast administration. The liver, spleen, pancreas, adrenals and kidneys appear grossly normal. There is no evidence of diverticulitis. Large amount of stool within the colon. No adnexal mass Air and what appears to be stool is present within the vaginal canal IMPRESSION: Air and what appears to be stool is present within the vaginal canal. This may indicate a fistula or foreign body
[2023-09-27 21:35] LABS: Absolute Lymphocytes (CBC) 2.7 K/uL (0.7-4.9); Lymphocytes % 28.2 % (15.3-44.8); MCV 88.4 fL (80-100); Platelets 436 thou/uL (152-406); RBC Red Blood Cell Count 3.85 M/uL (3.86-4.86)
[2023-09-27 21:55] LABS: Albumin 2.7 g/dL (3.4-5.0); Bilirubin Total 0.2 mg/dL (0.2-1.0); Potassium 2.9 mEq/L (3.5-5.1); Protein, Total 6.5 g/dL (6.4-8.2)
--- NOTE | 2023-09-27 22:30 | EDPHYS ---
Physician Documentation [facility] Name: Laura Smith Age: 43 yrs Sex: Female : 1980 Arrival Date: 09/27/2023 Time: 18:30 Bed 14 Private MD: ED Physician Liban Robertson HPI: 09/27 18:46 This 43 yrs old Female presents to ER via Ambulatory with complaints of Vaginal sb4 Discharge, flank pain. 18:46 patient reports brown milky malodorous vaginal discharge as well as blood in her urine sb4 and bilateral flank pain for 2 weeks. states she was recently in longterm, had blood work done, and was told she had some infection but she is not sure the source. states she was started on cipro and something else but is not getting any better. Historical: - Allergies: 18:34 Benadryl; ss 18:34 iodine (IV) (Anaphylaxis); ss 18:34 PENICILLINS (Hives); ss 18:34 Toradol (Hives); ss - Home Meds: 18:34 clonazepam 1 mg Oral tab 1 tab 3 times per day [Active]; Fioricet Oral [Active]; ss Suboxone 8-2 mg sublingual film 2 film once daily [Active]; Seroquel Oral [Active]; Lexapro Oral [Active]; gabapentin Oral [Active]; - PMHx: 18:34 Anxiety; Asthma; Bipolar disorder; CHF; COPD; Drug dependence; Pancreatitis; PTSD; ss Schizophrenia; Skull Fracture Left Parietal Area; TIA; - Immunization history:: Adult Immunizations up to date. - Social history:: Smoking status: Patient denies any tobacco usage or history of. ROS: 18:46 Positive for urinary symptoms, flank pain, urinary frequency, hematuria, vaginal sb4 discharge, 18:46 Constitutional: Negative for fever, chills, and weight loss, 18:46 All other systems are negative, Exam: 18:46 Head/Face: Normocephalic, atraumatic. Eyes: Extra-ocular motions intact. Periorbital sb4 areas with no swelling, redness, or edema. ENT: Mucous membranes moist. Cardiovascular: Regular rate and rhythm with a normal S1 and S2. Respiratory: Lungs have equal breath sounds bilaterally, clear to auscultation and percussion. No rales, rhonchi or wheezes noted. No increased work of breathing, no retractions or nasal flaring. Abdomen/GI: Soft, non-tender, no distension. Skin: Warm, dry with normal turgor. Normal color with no rashes, no lesions, and no evidence of cellulitis. MS/ Extremity: Pulses equal, no cyanosis. Neurovascular intact. Full, normal range of motion. 18:46 Constitutional: The patient appears alert, awake, unkempt, Vital Signs: 18:48 BP 110 / 72; Pulse 109; Resp 16; Temp 98; Pulse Ox 100% ; bp 20:00 BP 114 / 71; Pulse 101; Resp 18; Pulse Ox 99% on R/A; rv 22:00 BP 118 / 75; Pulse 101; Resp 19; Pulse Ox 99% on R/A; rv 23:00 BP 106 / 72; Pulse 96; Resp 16; Temp 98; Pulse Ox 99% on R/A; rv MDM: 18:36 Patient medically screened. sb4 18:46 Differential diagnosis: ameena infection, cervicitis, kidney stone, menometrorrhagia, sb4 menorrhea, pelvic inflammatory disease, urinary tract infection, vaginosis. 22:27 Data reviewed: vital signs, nurses notes, lab test result(s), radiologic studies, I sb4 have discussed the patient's presentation/case with the attending Emergency Department Physician; and as a result, I will discharge patient. Consideration of Admission/Observation Escalation of care including admission/observation considered. Care significantly affected by the following chronic conditions: Congestive Heart Failure. Counseling: I had a detailed discussion with the patient and/or guardian regarding the historical points, exam findings, and any diagnostic results supporting the discharge/admit diagnosis, lab results, radiology results, the need for outpatient follow up, an OB/Gyne specialist, to return to the emergency department if symptoms worsen or persist or if there are any questions or concerns that arise at home. 09/27 18:45 Order name: CBC with Diff; Complete Time: 21:39 sb4 09/27 18:45 Order name: CMP; Complete Time: 22:00 sb4 09/27 18:45 Order name: Lipase; Complete Time: 22:00 4 09/27 18:45 Order name: Test, Urine; Complete Time: 20:01 4 09/27 18:45 Order name: Urinalysis w/ reflexes; Complete Time: 19:26 sb4 09/27 18:45 Order name: Wet Prep: can swab herself; Complete Time: 20:52 sb4 09/27 18:45 Order name: Urine Culture sb4 09/27 20:03 Order name: GC (Zaid/Chl) Probe CX/URE EDMS 09/27 21:03 Order name: Lactate w/ 2H reflex if indic.; Complete Time: 22:00 sb4 09/27 21:03 Order name: Blood Culture Adult (2) sb4 09/27 18:45 Order name: CT Abd/Pelvis - Without Contrast; Complete Time: 20:19 sb4 Administered Medications: 20:18 Not Given (Patient Refused): ns 0.9% 1000 ml IV at 1 bolus Per protocol; 1000 mL bolus rv 20:18 Drug: Fluconazole PO 200 mg PO once Route: PO; rv 23:15 Follow up: Response: No adverse reaction rv 21:03 CANCELLED (Physician Discretion): [id number] mg PO once sb4 21:03 CANCELLED (Physician Discretion): [id number] mg PO once sb4 21:45 Drug: metroNIDAZOLE IVPB 500 mg 100 ml IVPB at 200 ml/hr once over 30 mins Volume: 100 rv ml; Route: IVPB; Rate: 200 ml/hr; Infused Over: 30 mins; Site: left jugular; 23:15 Follow up: Response: No adverse reaction; IV Status: Completed infusion; IV Intake: rv 100ml 21:45 Drug: Rocephin IV 1 grams IV at calculated rate once; Given slow IV push per pharmacy rv instructions Route: IV; Rate: calculated rate; Site: left jugular; 23:15 Follow up: Response: No adverse reaction; IV Status: Completed infusion rv 22:47 Drug: morphine IVP or IV 4 mg IVP once over 4 mins Route: IVP; Infused Over: 4 mins; km8 Site: left jugular; 23:15 Follow up: Response: No adverse reaction rv 22:47 Drug: Ondansetron IVP 4 mg IVP once; over 2 minutes Route: IVP; Site: left jugular; km8 23:14 Follow up: Response: No adverse reaction rv Disposition Summary: 09/27/23 22:29 Discharge Ordered Notes: Location: Home sb4 Problem: new sb4 Symptoms: have improved sb4 Condition: Stable sb4 Diagnosis - rectovaginal fistula sb4 Followup: sb4 - With: Alexia Palma MD - When: 1 - 2 days - Reason: Recheck today's complaints, Re-evaluation by your physician Discharge Instructions: - Discharge Summary Sheet sb4 Forms: - Medication Reconciliation Form sb4 - Thank You Letter sb4 - Antibiotic Education sb4 - Prescription Opioid Use sb4 - Patient Portal Instructions sb4 - Leadership Thank You Letter sb4 Prescriptions: - Flagyl 500 mg Oral Tablet - take 1 tablet ORAL route every 8 hours for 10 days; 30 tablet; Refills: 0, sb4 Product Selection Permitted - Doxycycline Hyclate 100 mg Oral Tablet - take 1 tablet ORAL route every 12 hours; 20 tablet; Refills: 0, Product sb4 Selection Permitted Signatures: Dispatcher [employer] EDMS Janessa Mc, RN RN ss Dayne Phillips, RN RN bp Jeremiah Penn RN RN Paula Sosa PABrianna PABrianna sb4 Roxann Silverio RN RN km8 Corrections: (The following items were deleted from the chart) 20:03 18:45 GC (Zaid/Chl) Probe URINE+R.LAB.BRZ ordered. EDMS EDMS 20:18 18:45 IV Saline Lock ordered. sb4 rv 20:18 18:45 Labs collected and sent ordered. sb4 rv 21:03 20:59 Doxycycline PO 100 mg PO once ordered. sb4 sb4 21:03 20:59 metroNIDAZOLE PO 500 mg PO once ordered. sb4 sb4
--- NOTE | 2023-09-27 22:30 | ER ---
Nurse's Notes [facility] Name: Laura Smith Age: 43 yrs Sex: Female : 1980 Arrival Date: 09/27/2023 Time: 18:30 Bed 14 Private MD: Diagnosis: rectovaginal fistula Presentation: 09/27 18:32 Chief complaint: Patient states: Vaginal discharge, blood in urine and flank pain that ss began 2 weeks ago. Pt reports she was placed on Cipro and another medication and was told to come back if symptoms persisted. Pt reports she has been unable to follow up since her initial visit and that her symptoms have not improved. Coronavirus screen: Client denies travel out of the [place] in the last 14 days. Ebola Screen: Patient denies exposure to infectious person. Patient denies travel to an Ebola-affected area in the 21 days before illness onset. Initial Sepsis Screen: Does the patient meet any 2 criteria? No. Patient's initial sepsis screen is negative. Does the patient have a suspected source of infection? Yes: Dysuria/Frequency/Urgency/UTI. Risk Assessment: Do you want to hurt yourself or someone else? Patient reports no desire to harm self or others. Onset of symptoms was September 27, 2023. 18:32 Method Of Arrival: Ambulatory ss 18:32 Acuity: DARIEL 3 ss Triage Assessment: 18:40 General: Appears in no apparent distress. Behavior is calm, cooperative. Pain: bp Complains of pain in pelvis. Historical: - Allergies: 18:34 Benadryl; ss 18:34 iodine (IV) (Anaphylaxis); ss 18:34 PENICILLINS (Hives); ss 18:34 Toradol (Hives); ss - Home Meds: 18:34 clonazepam 1 mg Oral tab 1 tab 3 times per day [Active]; Fioricet Oral [Active]; ss Suboxone 8-2 mg sublingual film 2 film once daily [Active]; Seroquel Oral [Active]; Lexapro Oral [Active]; gabapentin Oral [Active]; - PMHx: 18:34 Anxiety; Asthma; Bipolar disorder; CHF; COPD; Drug dependence; Pancreatitis; PTSD; ss Schizophrenia; Skull Fracture Left Parietal Area; TIA; - Immunization history:: Adult Immunizations up to date. - Social history:: Smoking status: Patient denies any tobacco usage or history of. Screenin:40 [facility] ED Fall Risk Assessment (Adult) History of falling in the last 3 months, bp including since admission No falls in past 3 months (0 pts). Abuse screen: Denies threats or abuse. Denies injuries from another. Nutritional screening: No deficits noted. Tuberculosis screening: No symptoms or risk factors identified. Assessment: 18:40 General: SEE TRIAGE NOTE. bp Vital Signs: 18:48 BP 110 / 72; Pulse 109; Resp 16; Temp 98; Pulse Ox 100% ; bp 20:00 BP 114 / 71; Pulse 101; Resp 18; Pulse Ox 99% on R/A; rv 22:00 BP 118 / 75; Pulse 101; Resp 19; Pulse Ox 99% on R/A; rv 23:00 BP 106 / 72; Pulse 96; Resp 16; Temp 98; Pulse Ox 99% on R/A; rv ED Course: 18:31 Patient arrived in ED. bp 18:34 Triage completed. ss 18:34 Arm band placed on right wrist. ss 18:36 Paula Aguilera PA-C is PHCP. sb4 18:36 Liban Robertson MD is Attending Physician. sb4 18:37 Dayne Phillips, TRACY is Primary Nurse. bp 18:40 Patient has correct armband on for positive identification. bp 19:56 CT Abd/Pelvis - Without Contrast In Process Unspecified. EDMS 21:15 No provider procedures requiring assistance completed. Inserted saline lock: 20 gauge rv in left EJ, using aseptic technique. ,using aseptic technique. BY DR LOUIS Blood collected. 22:27 Alexia Palma MD is Referral Physician. sb4 23:14 IV discontinued, intact, bleeding controlled, No redness/swelling at site. Pressure rv dressing applied. Administered Medications: 20:18 Not Given (Patient Refused): ns 0.9% 1000 ml IV at 1 bolus Per protocol; 1000 mL bolus rv 20:18 Drug: Fluconazole PO 200 mg PO once Route: PO; rv 23:15 Follow up: Response: No adverse reaction rv 21:03 CANCELLED (Physician Discretion): [id number] mg PO once sb4 21:03 CANCELLED (Physician Discretion): mg PO once sb4 21:45 Drug: metroNIDAZOLE IVPB 500 mg 100 ml IVPB at 200 ml/hr once over 30 mins Volume: 100 rv ml; Route: IVPB; Rate: 200 ml/hr; Infused Over: 30 mins; Site: left jugular; 23:15 Follow up: Response: No adverse reaction; IV Status: Completed infusion; IV Intake: rv 100ml 21:45 Drug: Rocephin IV 1 grams IV at calculated rate once; Given slow IV push per pharmacy rv instructions Route: IV; Rate: calculated rate; Site: left jugular; 23:15 Follow up: Response: No adverse reaction; IV Status: Completed infusion rv 22:47 Drug: morphine IVP or IV 4 mg IVP once over 4 mins Route: IVP; Infused Over: 4 mins; km8 Site: left jugular; 23:15 Follow up: Response: No adverse reaction rv 22:47 Drug: Ondansetron IVP 4 mg IVP once; over 2 minutes Route: IVP; Site: left jugular; km8 23:14 Follow up: Response: No adverse reaction rv Medication: 23:14 VIS not applicable for this client. rv Intake: 23:15 IV: 100ml; Total: 100ml. rv Outcome: 22:29 Discharge ordered by MD. yin 23:14 Discharged to home ambulatory, rv 23:14 Condition: good 23:14 Discharge instructions given to patient, Instructed on discharge instructions, follow up and referral plans. medication usage, Demonstrated understanding of instructions, follow-up care, medications, Prescriptions given X 2, 23:15 Patient left the ED. rv Signatures: Dispatcher [employer] EDMS Janessa Mc RN RN Dayne Phillips RN RN bp Vicente, Ronaldo, RN RN rv Brown, Sophia, PA-C PA-C sb4 Marx, Katie, RN RN km8
[2023-09-28 05:38] VITALS: BP 106/72; TEMP 98; O2SAT 99
== END ==
LOC: ER 18:30
DX: N82.3 Fistula of vagina to large intestine (principal); F20.9 Schizophrenia, unspecified; Z88.0 Allergy status to penicillin; Z88.5 Allergy status to narcotic agent; Z91.048 Other nonmedicinal substance allergy status
CPT/HCPCS: 87040 ×2; 87088; 85025; 81001; 87086; 36415; 81025; 87210; 83605; 83690; 80053; 87590; 87490; 74176; J2405; J7030; J0696

== ENCOUNTER → 2023-10-19 | Emergency (ER) | payer OTHER ==
[~2023-10-19] MED LIST changes: -CEFTRIAXONE 1000 MG/VIAL ONE; -FLUCONAZOLE 100 MG TAB ONE; -METRONIDAZOLE 500mg IVPB 500 MG/100 ML BAG IV ONE; -MORPHINE 4 MG/ML SYR ONE; -NA CHLORIDE 0.9% 1,000 ML ONE; -ONDANSETRON 4 MG/2 ML VIAL ONE; -WATER FOR INJ,STERILE 10 ML ONE; +dexAMETHasone 10 MG/ML VIAL ONE
--- NOTE | 2023-10-19 05:25 | EDPHYS ---
Physician Documentation [facility] Name: Laura Smith Age: 43 yrs Sex: Female : 1980 Arrival Date: 10/19/2023 Time: 03:52 Bed 8 Private MD: ED Physician HPI: 10/19 04:30 This 43 yrs old Female presents to ER via EMS with complaints of allergic ec2 reaction. 04:31 Patient arrives today for concern for allergic reaction. Reports that she had used some ec2 bug spray and noted some eye irritation, difficulty breathing, skin redness. Patient called EMS, EMS had given 25 mg of IM Benadryl. Patient reports no known allergies. Reports no tongue swelling.. Historical: - Allergies: 04:05 iodine (IV) (Anaphylaxis); tm6 04:05 PENICILLINS (Hives); tm6 04:05 Toradol (Hives); tm6 04:05 Tramadol HCl; tm6 - PMHx: 04:05 Anxiety; Asthma; Bipolar disorder; TIA; Skull Fracture Left Parietal Area; tm6 Schizophrenia; PTSD; Pancreatitis; Drug dependence; COPD; CHF; 04:06 renal failure; hepatitis c; tm6 - Immunization history:: Adult Immunizations up to date, Client reports having NOT received the Covid vaccine. Flu vaccine is up to date. - Social history:: Smoking status: Reported history of juuling and/or vaping. Patient/guardian denies using alcohol, street drugs, but used to use street drugs. ROS: 04:31 Constitutional: as per hpi ec2 Exam: 04:31 Constitutional: GEN: NAD Head: atraumatic Eyes: EOMI Ears: External ears are normal. ec2 Mouth: No airway swelling or compromise evident, no issues with phonation or drooling. CV: regular rate LUNGS: no respiratory distress ABD: non-distended SKIN: Erythematous rash in the bilateral upper extremities and back. MSK: no evidence of trauma NEURO: moves all extremities equally Vital Signs: 04:03 BP 115 / 83; Pulse 95; Resp 19; Temp 98(TE); Pulse Ox 100% on R/A; Weight 51.26 kg; tm6 Height 5 ft. 1 in. ; Pain 0/10; 04:34 BP 105 / 73; Pulse 94; Pulse Ox 100% on R/A; tm6 05:12 BP 88 / 53; Pulse 78; Pulse Ox 97% on R/A; Pain 0/10; tm6 05:31 BP 92 / 60; Pulse 85; Pulse Ox 98% on R/A; Pain 0/10; tm6 06:11 BP 92 / 60; Pulse 94; Resp 19; Temp 97.2; Pulse Ox 96% on R/A; Pain 0/10; tm6 04:03 Body Mass Index 21.35 (51.26 kg, 154.94 cm) tm6 04:03 Pain Scale: Adult tm6 05:12 Pain Scale: Adult tm6 05:31 Pain Scale: Adult tm6 06:11 Pain Scale: Adult tm6 MDM: 04:01 Patient medically screened. ec2 04:31 Data reviewed: vital signs. ED course: Patient arrives today due to concern for ec2 allergic reaction. Examination remarkable for well-appearing nontoxic dividual is otherwise in no acute distress with reassuring examination. Will give the patient Decadron and continue to monitor the patient. No multiorgan system involvement to warrant giving epinephrine. Additionally patient without systemic signs symptoms to warrant obtaining lab work.. 05:23 ED course: On reassessment patient remains well-appearing, no evidence of air ec2 compromise. Will discharge home. Turn precautions given.. Administered Medications: 04:40 Drug: Dexamethasone IM 10 mg IM once Route: IM; Site: right deltoid; tm6 Disposition Summary: 10/19/23 05:24 Discharge Ordered Notes: Location: Home ec2 Condition: Stable ec2 Diagnosis - Allergic Reaction ec2 Followup: ec2 - With: Private Physician - When: - Reason: Recheck today's complaints Discharge Instructions: - Discharge Summary Sheet ec2 - Allergies, Adult, [id number] ec2 Forms: - Medication Reconciliation Form ec2 - Thank You Letter ec2 - Antibiotic Education ec2 - Prescription Opioid Use ec2 - Patient Portal Instructions ec2 - Leadership Thank You Letter ec2 Signatures: Yaw Plata MD MD ec2 James Arrington RN RN tm6
--- NOTE | 2023-10-19 05:25 | ER ---
Nurse's Notes [facility] Name: Laura Smith Age: 43 yrs Sex: Female : 1980 Arrival Date: 10/19/2023 Time: 03:52 Bed 8 Private MD: Diagnosis: Allergic Reaction Presentation: 10/19 04:03 Chief complaint: EMS states: patient inhaled lopez spray, afraid of possible allergic tm6 reaction. Back is red and itchy. 25mg benadryl given IM MOLD [employer]NER. Coronavirus screen: Vaccine status: Patient reports being unvaccinated. Ebola Screen: Patient negative for fever greater than or equal to 101.5 degrees Fahrenheit, and additional compatible Ebola Virus Disease symptoms Patient denies exposure to infectious person. Patient denies travel to an Ebola-affected area in the 21 days before illness onset. No symptoms or risks identified at this time. Initial Sepsis Screen: Does the patient meet any 2 criteria? No. Patient's initial sepsis screen is negative. Does the patient have a suspected source of infection? No. Patient's initial sepsis screen is negative. Risk Assessment: Do you want to hurt yourself or someone else? Patient reports no desire to harm self or others. Onset of symptoms was October 19, 2023. 04:03 Method Of Arrival: EMS: [facility] tm6 04:03 Acuity: DARIEL 4 tm6 04:09 Care prior to arrival: Medication(s) given: 25mg benadryl IM. tm6 Triage Assessment: 04:06 General: Appears in no apparent distress. Behavior is cooperative, crying. Pain: Denies tm6 pain. EENT: No signs and/or symptoms were reported regarding the EENT system. Neuro: Level of Consciousness is awake, alert, obeys commands, Oriented to person, place, time, situation. Cardiovascular: Capillary refill < 3 seconds Patient's skin is warm and dry. Respiratory: Airway is patent Respiratory effort is even, unlabored, Respiratory pattern is regular, symmetrical. GI: Abdomen is flat, non-distended. : Reports rectal/vaginal fistula. Derm: Reports itching, itching on back. Musculoskeletal: No signs and/or symptoms reported regarding the musculoskeletal system. Historical: - Allergies: 04:05 iodine (IV) (Anaphylaxis); tm6 04:05 PENICILLINS (Hives); tm6 04:05 Toradol (Hives); tm6 04:05 Tramadol HCl; tm6 - PMHx: 04:05 Anxiety; Asthma; Bipolar disorder; TIA; Skull Fracture Left Parietal Area; tm6 Schizophrenia; PTSD; Pancreatitis; Drug dependence; COPD; CHF; 04:06 renal failure; hepatitis c; tm6 - Immunization history:: Adult Immunizations up to date, Client reports having NOT received the Covid vaccine. Flu vaccine is up to date. - Social history:: Smoking status: Reported history of juuling and/or vaping. Patient/guardian denies using alcohol, street drugs, but used to use street drugs. Screenin:09 [facility] ED Fall Risk Assessment (Adult) History of falling in the last 3 months, tm6 including since admission No falls in past 3 months (0 pts) Confusion or Disorientation No (0 pts) Intoxicated or Sedated No (0 pts) Impaired Gait Yes (1 pt) Mobility Assist Device Used Yes (1 pt) Altered Elimination Yes (1 pt) Score/Fall Risk Level 3 or more points = High Risk Oriented to surroundings, Maintained a safe environment. Abuse screen: Denies threats or abuse. Denies injuries from another. Nutritional screening: No deficits noted. Tuberculosis screening: No symptoms or risk factors identified. Assessment: 04:09 Reassessment: see triage assessment. tm6 05:12 Reassessment: Patient appears in no apparent distress at this time. No changes from tm6 previously documented assessment. Patient and/or family updated on plan of care and expected duration. Pain level reassessed. Patient is alert, oriented x 3, equal unlabored respirations, skin warm/dry/pink. 05:31 Reassessment: Patient appears in no apparent distress at this time. Patient and/or tm6 family updated on plan of care and expected duration. Pain level reassessed. Patient is alert, oriented x 3, equal unlabored respirations, skin warm/dry/pink. Patient states feeling better. 06:11 Reassessment: Patient and/or family updated on plan of care and expected duration. Pain tm6 level reassessed. Patient is alert, oriented x 3, equal unlabored respirations, skin warm/dry/pink. Patient states feeling better. Vital Signs: 04:03 BP 115 / 83; Pulse 95; Resp 19; Temp 98(TE); Pulse Ox 100% on R/A; Weight 51.26 kg; tm6 Height 5 ft. 1 in. ; Pain 0/10; 04:34 BP 105 / 73; Pulse 94; Pulse Ox 100% on R/A; tm6 05:12 BP 88 / 53; Pulse 78; Pulse Ox 97% on R/A; Pain 0/10; tm6 05:31 BP 92 / 60; Pulse 85; Pulse Ox 98% on R/A; Pain 0/10; tm6 06:11 BP 92 / 60; Pulse 94; Resp 19; Temp 97.2; Pulse Ox 96% on R/A; Pain 0/10; tm6 04:03 Body Mass Index 21.35 (51.26 kg, 154.94 cm) tm6 04:03 Pain Scale: Adult tm6 05:12 Pain Scale: Adult tm6 05:31 Pain Scale: Adult tm6 06:11 Pain Scale: Adult tm6 ED Course: 04:00 Patient arrived in ED. vc1 04:01 Yaw Plata MD is Attending Physician. ec2 04:03 James Arrington RN is Primary Nurse. tm6 04:05 Triage completed. tm6 04:06 Arm band placed on right wrist. tm6 04:09 Patient has correct armband on for positive identification. Bed in low position. Call tm6 light in reach. Side rails up X2. Provided Education on: plan of care. Client placed on continuous cardiac and pulse oximetry monitoring. NIBP monitoring applied. Pulse ox on. NIBP on. Door closed. Noise minimized. Lights dimmed. Warm blanket given. 04:09 No provider procedures requiring assistance completed. tm6 06:12 Patient did not have IV access during this emergency room visit. tm6 Administered Medications: 04:40 Drug: Dexamethasone IM 10 mg IM once Route: IM; Site: right deltoid; tm6 Medication: 04:09 VIS not applicable for this client. tm6 Outcome: 05:24 Discharge ordered by . ec2 06:12 Discharged to home ambulatory, tm6 06:12 Condition: stable 06:12 Discharge instructions given to patient, Instructed on discharge instructions, follow up and referral plans. Demonstrated understanding of instructions, follow-up care, 06:12 Patient left the ED. tm6 Signatures: Earnestine Hayden RN RN vc1 Yaw Plata MD MD ec2 James Arrington, TRACY RN tm6
[2023-10-19 06:29] VITALS: BP 92/60; TEMP 97.2; O2SAT 96
== END ==
LOC: ER 03:52
DX: L29.9 Pruritus, unspecified (principal); Z88.0 Allergy status to penicillin; Z88.5 Allergy status to narcotic agent; Z91.048 Other nonmedicinal substance allergy status; Z28.310 Unvaccinated for COVID-19
CPT/HCPCS: 96372; 99284; J1100